=== PATIENT | male | born 1955 ===

== ENCOUNTER 2018-08-17 18:39 | Inpatient (IN) | payer MEDICAID, OTHER ==
[2018-08-17 19:20] LABS: BASO # 0.02 K/mm3 (0.0-2.0); BASO % 0.2 % (0.0-3.0); EOS # 0.1 (0.0-0.7); EOS % 1.3 % (1.5-5.0); HEMOGLOBIN 14.6 g/dL (14.0-18.0); LYMPH % 35.4 % (22.0-35.0); MEAN CELL VOLUME 82.7 fl (80.0-105.0); MEAN CORPUSCULAR HGB CONC 35.1 g/dl (31.0-37.0); MEAN PLATELET VOLUME 9.5 fl (7.0-11.0); MONO # 0.6 (0.1-0.6); MONO % 7.5 % (1.0-6.0); RBC 5.03 10^6/uL (3.5-6.1); RED CELL DISTRIBUTION WIDTH 13.7 % (11.5-14.5); WHITE BLOOD COUNT 8.4 10^3/uL (4.5-11.0)
[2018-08-17 19:33] LABS: ALB/GLOB RATIO 1.3 (1.1-1.8); ALBUMIN 4.6 g/dL (3.0-4.8); CALCIUM 9.7 mg/dL (8.4-10.5)
[2018-08-17 19:44] LABS: TROPONIN I 0.03 ng/mL
--- NOTE | 2018-08-17 20:02 | ED PDOC ---
Arrival/HPI - General Chief Complaint: Shortness Of Breath Time Seen by Provider: 08/17/18 18:58 Historian: Patient - History of Present Illness Narrative History of Present Illness (Text): 08/17/18 19:56 63-year-old male presents today with a 4-month history of intermittent shortness of breath. Patient is complaining of dyspnea on exertion. Patient states today while taking out the garbage he developed his shortness of breath and palpitations in the chest. He denies chest pain at present time. Patient denies dizziness or weakness. Patient denies cough. Patient states he quit smoking 4 months ago. Patient denies abdominal pain. No nausea vomiting diarrhea or constipation. No dizziness or weakness. Patient states while at rest he has no pain or shortness of breath. Past Medical History - Provider Review Nursing Documentation Reviewed: Yes - Travel History Have you recently traveled outside [place] w/in the past 3 mons?: No - Infectious Disease Hx of Infectious Diseases: None - Cardiac Hx Hypertension: Yes (NOT ON MEIDCATION) - Psychiatric Hx Substance Use: No - Anesthesia Hx Anesthesia: No Hx Anesthesia Reactions: No Hx Malignant Hyperthermia: No Family/Social History - Physician Review Nursing Documentation Reviewed: Yes Family/Social History: Unknown Family HX Smoking Status: Never Smoked Hx Alcohol Use: No Hx Substance Use: No Allergies/Home Meds Allergies/Adverse Reactions: Allergies No Known Allergies Allergy (Verified 08/17/18 18:53) Home Medications: Home Meds Medication Instructions Recorded Confirmed No Known Home Med 08/17/18 08/17/18 Review of Systems - Review of Systems Constitutional: absent: Fatigue, Fevers Respiratory: SOB. absent: Cough, Sputum, Wheezing Cardiovascular: Chest Pain (intermittent), Palpitations Gastrointestinal: absent: Abdominal Pain, Constipation, Diarrhea, Nausea, Vomiting Genitourinary Male: absent: Dysuria, Frequency, Hematuria Musculoskeletal: absent: Arthralgias, Back Pain, Neck Pain Skin: absent: Rash, Pruritis Neurological: absent: Headache, Dizziness Psychiatric: absent: Anxiety, Depression, Suicidal Ideation Physical Exam Vital Signs Reviewed: Yes Vital Signs Temp Pulse Resp BP Pulse Ox 08/17/18 19:02 97.7 F 87 18 151/79 H 100 08/17/18 18:48 83 22 188/100 H 100 Temperature: Afebrile Blood Pressure: Hypertensive Pulse: Regular Respiratory Rate: Normal Appearance: Positive for: Well-Appearing, Non-Toxic, Comfortable Pain Distress: None Mental Status: Positive for: Alert and Oriented X 3 - Systems Exam Head: Present: Atraumatic Mouth: Present: Moist Mucous Membranes Nose (External): Present: Atraumatic Nose (Internal): Present: Normal Inspection Neck: Present: Normal Range of Motion Respiratory/Chest: Present: Clear to Auscultation, Good Air Exchange. No: Respiratory Distress, Accessory Muscle Use, Wheezes, Decreased Breath Sounds, Retracting, Rhonchi, Tachypneic Cardiovascular: Present: Regular Rate and Rhythm. No: Murmurs Abdomen: No: Tenderness, Distention, Rebound, Guarding Back: Present: Normal Inspection Upper Extremity: Present: Normal ROM Lower Extremity: Present: Normal Inspection, Normal ROM. No: Edema Neurological: Present: GCS=15, Speech Normal Skin: Present: Warm, Dry, Normal Color. No: Rashes Psychiatric: Present: Alert, Oriented x 3 Medical Decision Making ED Course and Treatment: 08/17/18 19:59 63-year-old male with a 4-month history of shortness of breath. With worsening shortness of breath today while taking out the garbage. Denies shortness of breath at present time. CBC within normal limits CMP elevated creatinine 1.6 trop:0.03 bnp; elevated d-dimer; 196 cxr; no infiltrate pt resting comfortably ; speaking in full sentences; saturating at 100% on room air. case discussed with dr. marcano. will admit for sob/ elevated bnp. asa given Po all results discussed with patient/family. impression; shortness of breath, elevated bnp, elevated CR admit. tele obs - Lab Interpretations Lab Results: D-Dimer, Quantitative 196 ng/mlDDU (0-243) 08/17/18 19:00 Troponin I 0.03 ng/mL 08/17/18 19:00 NT-Pro-B Natriuret Pep 1160 pg/mL (0-450) H 08/17/18 19:00 Total Bilirubin 0.8 mg/dL (0.2-1.3) 08/17/18 19:00 AST 25 U/L (17-59) 08/17/18 19:00 ALT 9 U/L (7-56) 08/17/18 19:00 Alkaline Phosphatase 92 U/L (38-126) 08/17/18 19:00 Total Protein 8.0 g/dL (5.8-8.3) 08/17/18 19:00 Albumin 4.6 g/dL (3.0-4.8) 08/17/18 19:00 Globulin 3.4 gm/dL 08/17/18 19:00 Albumin/Globulin Ratio 1.3 (1.1-1.8) 08/17/18 19:00 - RAD Interpretation Radiology Orders: 08/17/18 19:01 CHEST PORTABLE [RAD] Stat Disposition/Present on Arrival - Present on Arrival Any Indicators Present on Arrival: No History of DVT/PE: No History of Uncontrolled Diabetes: No Urinary Catheter: No History of Decub. Ulcer: No History Surgical Site Infection Following: None - Disposition Have Diagnosis and Disposition been Completed?: Yes Diagnosis: Shortness of breath, Elevated brain natriuretic peptide (BNP) level, Elevated serum creatinine Disposition: HOSPITALIZED Disposition Time: 20:02 Patient Plan: Observation, Telemetry Condition: FAIR Forms: Blood cell Storage (Turkish)
[2018-08-17 22:31] LABS: PH,URINE 6.5 (4.7-8.0); URINE BILIRUBIN NEGATIVE (NEGATIVE); URINE BLOOD NEGATIVE (NEGATIVE); URINE GLUCOSE (UA) NEGATIVE (NEGATIVE); URINE LEUKOCYTE ESTERASE NEGATIVE Leu/uL (NEGATIVE); URINE PROTEIN NEGATIVE mg/dL (<30 mg/dL); URINE UROBILINOGEN 0.2 E.U./dL (<1 E.U./dL)
[2018-08-17 22:33] LABS: URINE APPEARANCE CLEAR (CLEAR); URINE COLOR YELLOW (YELLOW)
[2018-08-17] MEDS ORDERED: Dextrose 50% SYRINGE Inj (50 ml) IV PRN (22:42)
[2018-08-17 22:52] LABS: HDL CHOLESTEROL 39 mg/dL (29-60)
[2018-08-17 23:04] LABS: LDL CHOLESTEROL 122 mg/dL (0-129)
[2018-08-17 23:10] LABS: FREE T4 1.02 ng/dL (0.78-2.19)
--- NOTE | 2018-08-18 00:48 | CP.PCM.HP ---
<Marcin Dwyer - Last Filed: 08/18/18 00:51> History of Present Illness - History of Present Illness History of Present Illness: Resident History & Physical for Hospitalist Service Patient is a 63 year old Green[place]ic speaking male with no known past medical history presenting with chief complaint of shortness of breath which has been progressively worsening over the past four months. Patient's dyspnea worsens with exertion and he is now only able to walk one block due to the severity of his symptoms. Patient previously smoked 1 pack every two days for the past 25 y ears and quit when he started developing symptoms. Patient denies ever following up with a primary medical doctor and has never taken medications. Denies fevers, chills, headache, dizziness, chest pain, abdominal pain, diarrhea, dysuria. PMH: none PSH: none SHx: 1 pack every 2 days for the past 25 years, denies alcohol and illicit drug use FHx: denies Allergies: none PMD: none Present on Admission - Present on Admission Any Indicators Present on Admission: No Review of Systems - Review of Systems All systems: reviewed and no additional remarkable complaints except (as stated in HPI) Past Patient History - Infectious Disease Hx of Infectious Diseases: None - Past Social History Smoking Status: Former Smoker - CARDIAC Hx Hypertension: Yes (NOT ON MEIDCATION) - PSYCHIATRIC Hx Substance Use: No - SURGICAL HISTORY Hx Surgeries: No - ANESTHESIA Hx Anesthesia: No Hx Anesthesia Reactions: No Hx Malignant Hyperthermia: No Meds Allergies/Adverse Reactions: Allergies Allergy/AdvReac Type Severity Reaction Status Date / Time No Known Allergies Allergy Verified 08/17/18 18:53 Physical Exam - Constitutional Appears: Non-toxic, No Acute Distress - Head Exam Head Exam: ATRAUMATIC, NORMOCEPHALIC - Eye Exam Eye Exam: EOMI, Normal appearance, PERRL - ENT Exam ENT Exam: Mucous Membranes Moist - Neck Exam Neck exam: Positive for: Normal Inspection - Respiratory Exam Respiratory Exam: Clear to Auscultation Bilateral, NORMAL BREATHING PATTERN. absent: Rales, Rhonchi, Wheezes, Respiratory Distress - Cardiovascular Exam Cardiovascular Exam: REGULAR RHYTHM, +S1, +S2. absent: Tachycardia, Systolic Murmur - GI/Abdominal Exam GI & Abdominal Exam: Normal Bowel Sounds, Soft. absent: Distended, Firm, Guarding, Rebound, Rigid, Tenderness - Extremities Exam Extremities exam: Positive for: normal capillary refill, normal inspection, pedal pulses present. Negative for: calf tenderness, pedal edema - Back Exam Back exam: absent: CVA tenderness (L), CVA tenderness (R) - Neurological Exam Neurological exam: Alert, CN II-XII Intact, Oriented x3 - Psychiatric Exam Psychiatric exam: Normal Affect, Normal Mood - Skin Skin Exam: Dry, Intact, Warm Results - Vital Signs Recent Vital Signs: Last Vital Signs Temp 97.7 F 08/17/18 19:02 Pulse 61 08/17/18 23:55 Resp 20 08/17/18 23:55 BP 147/59 L 08/17/18 23:55 Pulse Ox 98 08/17/18 23:55 - Labs Result Diagrams: 08/17/18 19:00 08/17/18 19:00 Labs: Laboratory Results - last 24 hr 08/17/18 08/17/18 08/17/18 19:00 19:00 19:00 WBC 8.4 RBC 5.03 Hgb 14.6 Hct 41.6 L MCV 82.7 MCH 29.0 MCHC 35.1 RDW 13.7 Plt Count 157 MPV 9.5 Neut % (Auto) 55.6 Lymph % (Auto) 35.4 H [place] % (Auto) 7.5 H Eos % (Auto) 1.3 L Baso % (Auto) 0.2 Lymph # (Auto) 3.0 [place] # (Auto) 0.6 Eos # (Auto) 0.1 Baso # (Auto) 0.02 Absolute Neuts (auto) 4.67 D-Dimer, Quantitative 196 Sodium 138 Potassium 4.4 Chloride 104 Carbon Dioxide 23 Anion Gap 16 BUN 20 Creatinine 1.6 H Est GFR ( Amer) 53 Est GFR (Non-Af Amer) 44 POC Glucose (mg/dL) Random Glucose 125 H Calcium 9.7 Total Bilirubin 0.8 AST 25 ALT 9 Alkaline Phosphatase 92 Lactate Dehydrogenase 553 Total Creatine Kinase 77 Troponin I 0.03 NT-Pro-B Natriuret Pep 1160 H Total Protein 8.0 Albumin 4.6 Globulin 3.4 Albumin/Globulin Ratio 1.3 Triglycerides Cholesterol LDL Cholesterol Direct HDL Cholesterol Free T4 TSH 3rd Generation Urine Color Urine Appearance Urine pH Ur Specific [place] Urine Protein Urine Glucose (UA) Urine Ketones Urine Blood Urine Nitrate Urine Bilirubin Urine Urobilinogen Ur Leukocyte Esterase 08/17/18 08/17/1819 19:00 19:00 22:21 WBC RBC Hgb Hct MCV MCH MCHC RDW Plt Count MPV Neut % (Auto) Lymph % (Auto) [place] % (Auto) Eos % (Auto) Baso % (Auto) Lymph # (Auto) [place] # (Auto) Eos # (Auto) Baso # (Auto) Absolute Neuts (auto) D-Dimer, Quantitative Sodium Potassium Chloride Carbon Dioxide Anion Gap BUN Creatinine Est GFR ( Amer) Est GFR (Non-Af Amer) POC Glucose (mg/dL) Random Glucose Calcium Total Bilirubin AST ALT Alkaline Phosphatase Lactate Dehydrogenase Total Creatine Kinase Troponin I NT-Pro-B Natriuret Pep Total Protein Albumin Globulin Albumin/Globulin Ratio Triglycerides 323 H Cholesterol 216 H LDL Cholesterol Direct 122 HDL Cholesterol 39 Free T4 1.02 TSH 3rd Generation 2.36 Urine Color Yellow Urine Appearance Clear Urine pH 6.5 Ur Specific [place] 1.010 Urine Protein Negative Urine Glucose (UA) Negative Urine Ketones Negative Urine Blood Negative Urine Nitrate Negative Urine Bilirubin Negative Urine Urobilinogen 0.2 Ur Leukocyte Esterase Negative 08/17/18 23:59 WBC RBC Hgb Hct MCV MCH MCHC RDW Plt Count MPV Neut % (Auto) Lymph % (Auto) [place] % (Auto) Eos % (Auto) Baso % (Auto) Lymph # (Auto) [place] # (Auto) Eos # (Auto) Baso # (Auto) Absolute Neuts (auto) D-Dimer, Quantitative Sodium Potassium Chloride Carbon Dioxide Anion Gap BUN Creatinine Est GFR ( Amer) Est GFR (Non-Af Amer) POC Glucose (mg/dL) 92 Random Glucose Calcium Total Bilirubin AST ALT Alkaline Phosphatase Lactate Dehydrogenase Total Creatine Kinase Troponin I NT-Pro-B Natriuret Pep Total Protein Albumin Globulin Albumin/Globulin Ratio Triglycerides Cholesterol LDL Cholesterol Direct HDL Cholesterol Free T4 TSH 3rd Generation Urine Color Urine Appearance Urine pH Ur Specific [place] Urine Protein Urine Glucose (UA) Urine Ketones Urine Blood Urine Nitrate Urine Bilirubin Urine Urobilinogen Ur Leukocyte Esterase Assessment & Plan - Assessment and Plan (Free Text) Assessment: Patient is a 63 year old [place]ic speaking male with no known past medical history presenting with chief complaint of progressively worsening shortness of breath Plan: Shortness of breath - D-dimer within normal limits - Troponin negx1 - Cardiology consulted - Troponins Q6H - EKG in AM - TSH, lipid panel, Hgba1c - ECHO - Aspirin ARF - kidney and bladder ultrasound to r/o obstruction - hold IVF PPX - Heparin SC Case reviewed with Dr. Corby Dwyer PGY-1 <Khoa Tavarez - Last Filed: 08/18/18 06:35> Results - Vital Signs Recent Vital Signs: Last Vital Signs Temp 96 F L 08/18/18 05:13 Pulse 74 08/18/18 06:30 Resp 31 H 08/18/18 06:30 BP 137/57 L 08/18/18 06:30 Pulse Ox 97 08/18/18 06:30 - Labs Result Diagrams: 08/17/18 19:00 08/17/18 19:00 Labs: Laboratory Results - last 24 hr 08/17/18 08/17/18 08/17/18 19:00 19:00 19:00 WBC 8.4 RBC 5.03 Hgb 14.6 Hct 41.6 L MCV 82.7 MCH 29.0 MCHC 35.1 RDW 13.7 Plt Count 157 MPV 9.5 Neut % (Auto) 55.6 Lymph % (Auto) 35.4 H [place] % (Auto) 7.5 H Eos % (Auto) 1.3 L Baso % (Auto) 0.2 Lymph # (Auto) 3.0 [place] # (Auto) 0.6 Eos # (Auto) 0.1 Baso # (Auto) 0.02 Absolute Neuts (auto) 4.67 APTT D-Dimer, Quantitative 196 Sodium 138 Potassium 4.4 Chloride 104 Carbon Dioxide 23 Anion Gap 16 BUN 20 Creatinine 1.6 H Est GFR ( Amer) 53 Est GFR (Non-Af Amer) 44 POC Glucose (mg/dL) Random Glucose 125 H Calcium 9.7 Total Bilirubin 0.8 AST 25 ALT 9 Alkaline Phosphatase 92 Lactate Dehydrogenase 553 Total Creatine Kinase 77 CK-MB (CK-2) CK-MB (CK-2) % Troponin I 0.03 NT-Pro-B Natriuret Pep 1160 H Total Protein 8.0 Albumin 4.6 Globulin 3.4 Albumin/Globulin Ratio 1.3 Triglycerides Cholesterol LDL Cholesterol Direct HDL Cholesterol Free T4 TSH 3rd Generation Urine Color Urine Appearance Urine pH Ur Specific [place] Urine Protein Urine Glucose (UA) Urine Ketones Urine Blood Urine Nitrate Urine Bilirubin Urine Urobilinogen Ur Leukocyte Esterase 08/17/18 08/17/1819 19:00 19:00 22:21 WBC RBC Hgb Hct MCV MCH MCHC RDW Plt Count MPV Neut % (Auto) Lymph % (Auto) [place] % (Auto) Eos % (Auto) Baso % (Auto) Lymph # (Auto) [place] # (Auto) Eos # (Auto) Baso # (Auto) Absolute Neuts (auto) APTT D-Dimer, Quantitative Sodium Potassium Chloride Carbon Dioxide Anion Gap BUN Creatinine Est GFR ( Amer) Est GFR (Non-Af Amer) POC Glucose (mg/dL) Random Glucose Calcium Total Bilirubin AST ALT Alkaline Phosphatase Lactate Dehydrogenase Total Creatine Kinase CK-MB (CK-2) CK-MB (CK-2) % Troponin I NT-Pro-B Natriuret Pep Total Protein Albumin Globulin Albumin/Globulin Ratio Triglycerides 323 H Cholesterol 216 H LDL Cholesterol Direct 122 HDL Cholesterol 39 Free T4 1.02 TSH 3rd Generation 2.36 Urine Color Yellow Urine Appearance Clear Urine pH 6.5 Ur Specific [place] 1.010 Urine Protein Negative Urine Glucose (UA) Negative Urine Ketones Negative Urine Blood Negative Urine Nitrate Negative Urine Bilirubin Negative Urine Urobilinogen 0.2 Ur Leukocyte Esterase Negative 08/17/18 08/18/18 08/18/18 23:59 01:25 02:44 WBC RBC Hgb Hct MCV MCH MCHC RDW Plt Count MPV Neut % (Auto) Lymph % (Auto) [place] % (Auto) Eos % (Auto) Baso % (Auto) Lymph # (Auto) [place] # (Auto) Eos # (Auto) Baso # (Auto) Absolute Neuts (auto) APTT 35.3 D-Dimer, Quantitative Sodium Potassium Chloride Carbon Dioxide Anion Gap BUN Creatinine Est GFR ( Amer) Est GFR (Non-Af Amer) POC Glucose (mg/dL) 92 Random Glucose Calcium Total Bilirubin AST ALT Alkaline Phosphatase Lactate Dehydrogenase 624 Total Creatine Kinase 513 H CK-MB (CK-2) 45.1 H CK-MB (CK-2) % 8.8 H Troponin I 14.20 H* D NT-Pro-B Natriuret Pep Total Protein Albumin Globulin Albumin/Globulin Ratio Triglycerides Cholesterol LDL Cholesterol Direct HDL Cholesterol Free T4 TSH 3rd Generation Urine Color Urine Appearance Urine pH Ur Specific [place] Urine Protein Urine Glucose (UA) Urine Ketones Urine Blood Urine Nitrate Urine Bilirubin Urine Urobilinogen Ur Leukocyte Esterase Attending/Attestation - Attestation I have personally seen and examined this patient.: Yes I have fully participated in the care of the patient.: Yes I have reviewed all pertinent clinical information: Yes Notes (Text): 08/18/18 06:35 Seen and examined and discussed with resident. Exam benign. A&P as above.
[2018-08-18 02:22] LABS: CK MB% 8.8 % (2.5-3.0); CK-MB 45.1 ng/mL (0.0-3.6); TROPONIN I 14.2 ng/mL
[2018-08-18] MEDS ORDERED: Heparin25000 units/250ml 1/2NS 25,000 UNITS/250 ML BAG IV SCH (02:30)
[2018-08-18] MEDS ORDERED: Dextrose 50% SYRINGE Inj (50 ml) IVP ONE (03:19)
[2018-08-18] MEDS ORDERED: Lidocaine PF 2% (5 ml) Inj (For Cardiac Arrhy) ONE (03:41)
[2018-08-18] MEDS ORDERED: Iodixanol 320 MG/ML 100 ML BOTTLE IV ONE (03:42)
[2018-08-18] MEDS ORDERED: Phenylephrine 10 mg/ml Inj ONE (03:42)
[2018-08-18] MEDS ORDERED: Midazolam 2 MG/2 ML VIAL ONE ×2 (03:42→04:07)
[2018-08-18] MEDS ORDERED: Iodixanol 320 MG/ML 200 ML BOTTLE IV ONE ×2 (03:42→04:08)
[2018-08-18] MEDS ORDERED: Iohexol 350mgl/ml 50 ML ONE (03:42)
[2018-08-18] MEDS ORDERED: Nitroglycerin 50mg in D5W 50 MG/250 ML BOTTLE IV ONE (03:43)
[2018-08-18] MEDS ORDERED: Heparin 2,000 ML IV ONE (03:43)
[2018-08-18] MEDS ORDERED: Iodixanol 320 mg/ml 150 ml Bottle IV ONE (04:27)
[2018-08-18] MEDS ORDERED: Morphine 2 mg/ml ISec ONE (04:29)
[2018-08-18] MEDS ORDERED: Sodium Chloride 0.9% 1,000 ML IV SCH (04:45)
--- NOTE | 2018-08-18 05:24 | CP.PCM.PCO ---
<Marshal Arredondo - Last Filed: 08/18/18 05:13> Summary - Summary of Event Summary of Event: Code HEART Note Marshal Arredondo DO, IM PGY-3 Patient previously admitted to floor for presentation of progressively worsening shortness of breath with exertion. No known hx due to lack of following physici ans, but hx tobacco use, quit 4 months prior, 15-20 pack yrs total. Since admission, labs notable for hyperlipidemia and BP suggestive of HTN. Initial trop on admission was 0.03, but repeat trop concerning for trop elevation to 14.2. Went to evaluate patient emergently, patient resting comfortably, not complaining of chest pain or shortness of breath at rest, not acutely tachycardic, but hypertensive with SBP 200's. STAT EKG ordered and read by me, when compared to EKG on admission concerning for new ST-elevations in V2 and V3. Chemical Process Operator previously consulted for this patient, Dr. Cooney, called emergently, discussed case with him, sent images of both EKG for evaluation. As per Cardio, given the severity of the trop elevation, the EKG changes, labs/vitals suggestive of HLD/HTN, and hx of tobacco use, significant concern for acute coronary event despite lack of chest pain. Code Heart activated at 0308, team called for emergent PATHOLOGY COLLECTOR. Remained with patient until team arrived, t hen proceeded with transfer from telemetry floor to blender laborer. No acute events prior to or during transfer, arrived at blender laborer and handed off to cath team and Dr. Cooney without incident. As per Cardio's instructions, with initiation of Code HEART, patient was given Plavix 600mg loading dose and Heparin 5000 unit bolus. Had previously received 325mg Aspirin on arrival in ED, and received Lipitor 40mg and Hydralazine IV 10mg for HLD and HTN prior to Code HEART. Patient additionally received 1mg IV ativan due to panic attack after activation of Code HEART (self-described panic attack as per patient, still denied chest pain or shortness of breath during). Case reviewed and discussed with attending, Dr. Tavarez. <Khoa Tavarez - Last Filed: 08/18/18 06:35> Attending/Attestation - Attestation I have personally seen and examined this patient.: Yes I have fully participated in the care of the patient.: Yes I have reviewed all pertinent clinical information: Yes
--- NOTE | 2018-08-18 05:33 | CP.PCM.CON ---
<Marshal Arredondo - Last Filed: 08/18/18 05:52> History of Present Illness - History of Present Illness History of Present Illness: ICU Consult Note Marshal Arredondo DO, IM PGY-3 Consulted for: Obs/Management post-cath This is a 63 yo M with no known PMH (due to no follow up with any medic al providers) who initially presented to [facility] with 4x months of progressively worsening exertional shortness of breath. After admission, repeat trop acutely elevated from 0.03 to 14.2, and EKG obtained at that time was concerning for new-onset ST-elevations in V2-3, which as per Cardio was concerning for acute STEMI. Code HEART was called at [id number] (please see Code HEART note for further details), and patient was transported to the wheelabrator operator for emergent COMPTROLLER. Found to have significant occlusion of the LAD, s/p ballooning and placement of 1x NANCY in the LAD. Patient was then transported to ICU for close observation and management s/p emergent COMPTROLLER. Patient remains groggy post-procedure (received fentanyl and versed for cath procedure), mostly moaning non-verbally, but does admit to some residual chest discomfort and thirst. Knows he is in [facility], and oriented to self and year. Distal pulses confirmed with duplex. PMH: no known hx, but labs suggestive of HLD and vitals suggestive of HTN, now known to have CAD s/p ND PSH: denies Fam Hx: unaware of any family hx Soc Hx: former tobacco user, 1/2 ppd, quit 4 months prior, 15-20 pack yr hx denies alcohol, illicits, IVDA Unemployed PMD: none Review of Systems - Review of Systems Systems not reviewed;Unavailable: Other (somnolent/lethargic s/p cath procedure, received fentanyl/versed) Past Patient History - Infectious Disease Hx of Infectious Diseases: None - Past Social History Smoking Status: Former Smoker - CARDIAC Hx Cardiac Disorders: Yes (PALPITATION) Hx Hypertension: Yes - PULMONARY Hx Respiratory Disorders: No (DENIES) - NEUROLOGICAL Hx Neurological Disorder: No (DENIES) - HEENT Hx HEENT Problems: No (DENIES) - RENAL Hx Chronic Kidney Disease: No (DENIES) - ENDOCRINE/METABOLIC Hx Endocrine Disorders: No (DENIES) - HEMATOLOGICAL/ONCOLOGICAL Hx Blood Disorders: No (DENIES) - INTEGUMENTARY Hx Dermatological Problems: No (DENIES) - MUSCULOSKELETAL/RHEUMATOLOGICAL Hx Falls: No - GASTROINTESTINAL Hx Gastrointestinal Disorders: No (DENIES) - GENITOURINARY/GYNECOLOGICAL Hx Genitourinary Disorders: No (DENIES) - PSYCHIATRIC Hx Substance Use: No - SURGICAL HISTORY Hx Surgeries: No (DENIES) - ANESTHESIA Hx Anesthesia: No Hx Anesthesia Reactions: No Hx Malignant Hyperthermia: No Meds Allergies/Adverse Reactions: Allergies Allergy/AdvReac Type Severity Reaction Status Date / Time No Known Allergies Allergy Verified 08/17/18 18:53 - Medications Medications: Current Medications Acetaminophen (Tylenol 325mg Tab) 650 mg PO Q6H PRN PRN Reason: Pain, moderate (4-7) Alprazolam (Xanax) 0.25 mg PO BID PRN PRN Reason: Anxiety Stop: 08/25/18 04:44 Aspirin (Ecotrin) 81 mg PO DAILY [facility] Atorvastatin Calcium (Lipitor) 40 mg PO DIN [facility] Clopidogrel Bisulfate (Plavix) 75 mg PO DAILY [facility] Dextrose (Dextrose 50% Inj) 0 ml IV STAT PRN; Protocol PRN Reason: Hypoglycemia Protocol Dextrose (Dextrose 5% In Water 1000 Ml) 1,000 mls @ 0 mls/hr IV .Q0M PRN; Protocol PRN Reason: Hypoglycemia Protocol Sodium Chloride (Sodium Chloride 0.9%) 1,000 mls @ 100 mls/hr IV .Q10H [facility] Stop: 08/18/18 08:46 Insulin Human Regular (Humulin R Med) 0 units SC ACHS [facility]; Protocol Metoprolol Tartrate (Lopressor) 12.5 mg PO Q12H [facility] Zolpidem Tartrate (Ambien) 5 mg PO HS PRN PRN Reason: Insomnia Physical Exam - Constitutional Appears: Non-toxic, No Acute Distress - Head Exam Head Exam: ATRAUMATIC, NORMAL INSPECTION, NORMOCEPHALIC - Eye Exam Eye Exam: EOMI, Normal appearance. absent: Conjunctival injection, Scleral icterus Pupil Exam: absent: Irregular, Unequal - ENT Exam ENT Exam: Mucous Membranes Moist - Neck Exam Neck exam: Negative for: Lymphadenopathy, Thyromegaly - Respiratory Exam Respiratory Exam: Clear to Auscultation Bilateral, NORMAL BREATHING PATTERN. absent: Accessory Muscle Use, Chest Wall Tenderness, Decreased Breath Sounds, Prolonged Expiratory Phase, Rales, Rhonchi, Wheezes, Respiratory Distress - Cardiovascular Exam Cardiovascular Exam: REGULAR RHYTHM, RRR (HR 70's on bedside monitor), +S1, +S2. absent: Bradycardia, Tachycardia, Irregular Rhythm, JVD, +S4 - GI/Abdominal Exam GI & Abdominal Exam: Normal Bowel Sounds, Soft. absent: Diminished Bowel Sounds, Distended, Firm, Hyperactive Bowel Sounds, Hypoactive Bowel Sounds, Rigid, Tenderness - Extremities Exam Extremities exam: Positive for: normal capillary refill, normal inspection, pedal pulses present (confirmed with duplex). Negative for: calf tenderness, pedal edema Additional comments: bandaging along right groin at site of vascular access site for cath - Neurological Exam Additional comments: somnolent but arousable, oriented to self and location, able to follow simple commands, previously seen to be moving all extremities spontaneously prior to code heart and cath - Psychiatric Exam Additional comments: sedated/lethargic - Skin Skin Exam: Dry, Intact (except for vascular access site as described above in extremities section), Normal Color, Warm Results - Vital Signs Recent Vital Signs: Last Vital Signs Temp 97.7 F 08/17/18 19:02 Pulse 60 08/18/18 02:52 Resp 18 08/18/18 02:08 BP 201/73 H 08/18/18 02:52 Pulse Ox 99 08/18/18 01:00 - Labs Result Diagrams: 08/17/18 19:00 08/17/18 19:00 Labs: Laboratory Results - last 24 hr 08/17/18 08/17/18 08/17/18 19:00 19:00 19:00 WBC 8.4 RBC 5.03 Hgb 14.6 Hct 41.6 L MCV 82.7 MCH 29.0 MCHC 35.1 RDW 13.7 Plt Count 157 MPV 9.5 Neut % (Auto) 55.6 Lymph % (Auto) 35.4 H [place] % (Auto) 7.5 H Eos % (Auto) 1.3 L Baso % (Auto) 0.2 Lymph # (Auto) 3.0 [place] # (Auto) 0.6 Eos # (Auto) 0.1 Baso # (Auto) 0.02 Absolute Neuts (auto) 4.67 APTT D-Dimer, Quantitative 196 Sodium 138 Potassium 4.4 Chloride 104 Carbon Dioxide 23 Anion Gap 16 BUN 20 Creatinine 1.6 H Est GFR ( Amer) 53 Est GFR (Non-Af Amer) 44 POC Glucose (mg/dL) Random Glucose 125 H Calcium 9.7 Total Bilirubin 0.8 AST 25 ALT 9 Alkaline Phosphatase 92 Lactate Dehydrogenase 553 Total Creatine Kinase 77 CK-MB (CK-2) CK-MB (CK-2) % Troponin I 0.03 NT-Pro-B Natriuret Pep 1160 H Total Protein 8.0 Albumin 4.6 Globulin 3.4 Albumin/Globulin Ratio 1.3 Triglycerides Cholesterol LDL Cholesterol Direct HDL Cholesterol Free T4 TSH 3rd Generation Urine Color Urine Appearance Urine pH Ur Specific [place] Urine Protein Urine Glucose (UA) Urine Ketones Urine Blood Urine Nitrate Urine Bilirubin Urine Urobilinogen Ur Leukocyte Esterase 08/17/18 08/17/18 08/17/18 19:00 19:00 22:21 WBC RBC Hgb Hct MCV MCH MCHC RDW Plt Count MPV Neut % (Auto) Lymph % (Auto) [place] % (Auto) Eos % (Auto) Baso % (Auto) Lymph # (Auto) [place] # (Auto) Eos # (Auto) Baso # (Auto) Absolute Neuts (auto) APTT D-Dimer, Quantitative Sodium Potassium Chloride Carbon Dioxide Anion Gap BUN Creatinine Est GFR ( Amer) Est GFR (Non-Af Amer) POC Glucose (mg/dL) Random Glucose Calcium Total Bilirubin AST ALT Alkaline Phosphatase Lactate Dehydrogenase Total Creatine Kinase CK-MB (CK-2) CK-MB (CK-2) % Troponin I NT-Pro-B Natriuret Pep Total Protein Albumin Globulin Albumin/Globulin Ratio Triglycerides 323 H Cholesterol 216 H LDL Cholesterol Direct 122 HDL Cholesterol 39 Free T4 1.02 TSH 3rd Generation 2.36 Urine Color Yellow Urine Appearance Clear Urine pH 6.5 Ur Specific [place] 1.010 Urine Protein Negative Urine Glucose (UA) Negative Urine Ketones Negative Urine Blood Negative Urine Nitrate Negative Urine Bilirubin Negative Urine Urobilinogen 0.2 Ur Leukocyte Esterase Negative 08/17/18 08/18/18 08/18/18 23:59 01:25 02:44 WBC RBC Hgb Hct MCV MCH MCHC RDW Plt Count MPV Neut % (Auto) Lymph % (Auto) [place] % (Auto) Eos % (Auto) Baso % (Auto) Lymph # (Auto) [place] # (Auto) Eos # (Auto) Baso # (Auto) Absolute Neuts (auto) APTT 35.3 D-Dimer, Quantitative Sodium Potassium Chloride Carbon Dioxide Anion Gap BUN Creatinine Est GFR ( Amer) Est GFR (Non-Af Amer) POC Glucose (mg/dL) 92 Random Glucose Calcium Total Bilirubin AST ALT Alkaline Phosphatase Lactate Dehydrogenase 624 Total Creatine Kinase 513 H CK-MB (CK-2) 45.1 H CK-MB (CK-2) % 8.8 H Troponin I 14.20 H* D NT-Pro-B Natriuret Pep Total Protein Albumin Globulin Albumin/Globulin Ratio Triglycerides Cholesterol LDL Cholesterol Direct HDL Cholesterol Free T4 TSH 3rd Generation Urine Color Urine Appearance Urine pH Ur Specific [place] Urine Protein Urine Glucose (UA) Urine Ketones Urine Blood Urine Nitrate Urine Bilirubin Urine Urobilinogen Ur Leukocyte Esterase Assessment & Plan - Assessment and Plan (Free Text) Assessment: This is a 63 yo M with no known PMH (due to no follow up with any medical providers) who initially presented to [facility] with 4x months of progressively worsening exertional shortness of breath, later found to have acute STEMI (elevations in V2-3, depressions in I, aVL, V4-6), now s/p emergent COMPTROLLER with NANCY placed in LAD. Admitted to ICU for post-cath monitoring and management. Plan: Neuro: -lethargic/somnolent s/p procedure, previously AAOx3 -maintain normothermia Pulm: -CTAB, no wheezes, rales, ronchi -likely exertional SOB is cardiac in nature, CAD/ND +/- new CHF (mild reduced EF as per Cardio) -no pleural effusion/pulm edema appreciated on CXR, satting well on 2L NC, and mildly elevated Cr, so will defer diuresis at this time -may be some underlying COPD given extensive smoking hx, continue to monitor -continue supplemental O2, goal is SaO2 92-99% Cardio: -s/p STEMI, trop increased to 14.2, new ST-elevations in V2-3, depressions in I, aVL, V4-6; suggestive of LAD or LCx lession -S/p cardiac cath, NANCY placed in LAD -Received ASA 325mg in ED, Heparin 5000u and Plavix 600mg pre-cath, Heparin 2000u during cath -Cardio (Dr. Cooney) following, appreciate his assistance and all recs continue daily ASA and Plavix, low-dose metoprolol (given borderline bradycardia prior to cath), gentle hydration -Will also continue high-intensity statin given HLD and acute ND -previously HTN with SBP up to 200's, 90's-100's post-cs=ath, continue to monitor -Echo ordered, f/u GI: -HHD -no indication for ppx at this time Renal: -Cr elevated at 1.6, unclear if longstanding CKD or IDRIS -likely to further elevate s/p cath, will monitor -gentle hydration as per Cardio -avoid nephrotoxic drugs where feasible -monitor and replete electrolytes as needed, in acute ACS pt want K >= 4 and Mg >= 2 -pending renal and bladder US, possible BPH based on presenting sx provided to admitting team -monitor UOP post-procedure Heme: no anemia, continue to monitor ID: no leukocytosis, no indication for abx at this time Endo: maintain BG 140-180, assess for DM given lack of physician f/u, A1c and TSH ordered Reviewed and discussed with attending, Dr. Tavarez <Khoa Tavarez - Last Filed: 08/18/18 06:36> Meds - Medications Medications: Current Medications Acetaminophen (Tylenol 325mg Tab) 650 mg PO Q6H PRN PRN Reason: Pain, moderate (4-7) Alprazolam (Xanax) 0.25 mg PO BID PRN PRN Reason: Anxiety Stop: 08/25/18 04:44 Aspirin (Ecotrin) 81 mg PO DAILY [facility] Atorvastatin Calcium (Lipitor) 40 mg PO DIN [facility] Clopidogrel Bisulfate (Plavix) 75 mg PO DAILY [facility] Dextrose (Dextrose 50% Inj) 0 ml IV STAT PRN; Protocol PRN Reason: Hypoglycemia Protocol Dextrose (Dextrose 5% In Water 1000 Ml) 1,000 mls @ 0 mls/hr IV .Q0M PRN; P rotocol PRN Reason: Hypoglycemia Protocol Sodium Chloride (Sodium Chloride 0.9%) 1,000 mls @ 100 mls/hr IV .Q10H [facility] Stop: 08/18/18 08:46 Last Admin: 08/18/18 05:00 Dose: 100 mls/hr Insulin Human Regular (Humulin R Med) 0 units SC ACHS [facility]; Protocol Metoprolol Tartrate (Lopressor) 12.5 mg PO Q12H [facility] Last Admin: 08/18/18 05:30 Dose: 12.5 mg Zolpidem Tartrate (Ambien) 5 mg PO HS PRN PRN Reason: Insomnia Results - Vital Signs Recent Vital Signs: Last Vital Signs Temp 96 F L 08/18/18 05:13 Pulse 74 08/18/18 06:30 Resp 31 H 08/18/18 06:30 BP 137/57 L 08/18/18 06:30 Pulse Ox 97 08/18/18 06:30 - Labs Result Diagrams: 08/17/18 19:00 08/17/18 19:00 Labs: Laboratory Results - last 24 hr 08/17/18 08/17/18 08/17/18 19:00 19:00 19:00 WBC 8.4 RBC 5.03 Hgb 14.6 Hct 41.6 L MCV 82.7 MCH 29.0 MCHC 35.1 RDW 13.7 Plt Count 157 MPV 9.5 Neut % (Auto) 55.6 Lymph % (Auto) 35.4 H [place] % (Auto) 7.5 H Eos % (Auto) 1.3 L Baso % (Auto) 0.2 Lymph # (Auto) 3.0 [place] # (Auto) 0.6 Eos # (Auto) 0.1 Baso # (Auto) 0.02 Absolute Neuts (auto) 4.67 APTT D-Dimer, Quantitative 196 Sodium 138 Potassium 4.4 Chloride 104 Carbon Dioxide 23 Anion Gap 16 BUN 20 Creatinine 1.6 H Est GFR ( Amer) 53 Est GFR (Non-Af Amer) 44 POC Glucose (mg/dL) Random Glucose 125 H Calcium 9.7 Total Bilirubin 0.8 AST 25 ALT 9 Alkaline Phosphatase 92 Lactate Dehydrogenase 553 Total Creatine Kinase 77 CK-MB (CK-2) CK-MB (CK-2) % Troponin I 0.03 NT-Pro-B Natriuret Pep 1160 H Total Protein 8.0 Albumin 4.6 Globulin 3.4 Albumin/Globulin Ratio 1.3 Triglycerides Cholesterol LDL Cholesterol Direct HDL Cholesterol Free T4 TSH 3rd Generation Urine Color Urine Appearance Urine pH Ur Specific [place] Urine Protein Urine Glucose (UA) Urine Ketones Urine Blood Urine Nitrate Urine Bilirubin Urine Urobilinogen Ur Leukocyte Esterase 08/17/18 08/17/18 08/17/18 19:00 19:00 22:21 WBC RBC Hgb Hct MCV MCH MCHC RDW Plt Count MPV Neut % (Auto) Lymph % (Auto) [place] % (Auto) Eos % (Auto) Baso % (Auto) Lymph # (Auto) [place] # (Auto) Eos # (Auto) Baso # (Auto) Absolute Neuts (auto) APTT D-Dimer, Quantitative Sodium Potassium Chloride Carbon Dioxide Anion Gap BUN Creatinine Est GFR ( Amer) Est GFR (Non-Af Amer) POC Glucose (mg/dL) Random Glucose Calcium Total Bilirubin AST ALT Alkaline Phosphatase Lactate Dehydrogenase Total Creatine Kinase CK-MB (CK-2) CK-MB (CK-2) % Troponin I NT-Pro-B Natriuret Pep Total Protein Albumin Globulin Albumin/Globulin Ratio Triglycerides 323 H Cholesterol 216 H LDL Cholesterol Direct 122 HDL Cholesterol 39 Free T4 1.02 TSH 3rd Generation 2.36 Urine Color Yellow Urine Appearance Clear Urine pH 6.5 Ur Specific [place] 1.010 Urine Protein Negative Urine Glucose (UA) Negative Urine Ketones Negative Urine Blood Negative Urine Nitrate Negative Urine Bilirubin Negative Urine Urobilinogen 0.2 Ur Leukocyte Esterase Negative 08/17/18 08/18/18 08/18/18 23:59 01:25 02:44 WBC RBC Hgb Hct MCV MCH MCHC RDW Plt Count MPV Neut % (Auto) Lymph % (Auto) [place] % (Auto) Eos % (Auto) Baso % (Auto) Lymph # (Auto) [place] # (Auto) Eos # (Auto) Baso # (Auto) Absolute Neuts (auto) APTT 35.3 D-Dimer, Quantitative Sodium Potassium Chloride Carbon Dioxide Anion Gap BUN Creatinine Est GFR ( Amer) Est GFR (Non-Af Amer) POC Glucose (mg/dL) 92 Random Glucose Calcium Total Bilirubin AST ALT Alkaline Phosphatase Lactate Dehydrogenase 624 Total Creatine Kinase 513 H CK-MB (CK-2) 45.1 H CK-MB (CK-2) % 8.8 H Troponin I 14.20 H* D NT-Pro-B Natriuret Pep Total Protein Albumin Globulin Albumin/Globulin Ratio Triglycerides Cholesterol LDL Cholesterol Direct HDL Cholesterol Free T4 TSH 3rd Generation Urine Color Urine Appearance Urine pH Ur Specific [place] Urine Protein Urine Glucose (UA) Urine Ketones Urine Blood Urine Nitrate Urine Bilirubin Urine Urobilinogen Ur Leukocyte Esterase Attending/Attestation - Attestation I have personally seen and examined this patient.: Yes I have fully participated in the care of the patient.: Yes I have reviewed all pertinent clinical information: Yes
[2018-08-18 06:21] LABS: BASO # 0.02 K/mm3 (0.0-2.0); BASO % 0.1 % (0.0-3.0); EOS % 0.1 % (1.5-5.0); HEMOGLOBIN 15.6 g/dL (14.0-18.0); LYMPH # 1.7 (1.2-3.4); LYMPH % 12.4 % (22.0-35.0); MEAN CELL VOLUME 82.6 fl (80.0-105.0); MEAN CORPUSCULAR HEMOGLOBIN 29.2 pg (25.0-35.0); MEAN CORPUSCULAR HGB CONC 35.3 g/dl (31.0-37.0); MEAN PLATELET VOLUME 9.7 fl (7.0-11.0); MONO # 0.7 (0.1-0.6); MONO % 4.8 % (1.0-6.0); RBC 5.35 10^6/uL (3.5-6.1); RED CELL DISTRIBUTION WIDTH 13.7 % (11.5-14.5)
[2018-08-18 07:23] LABS: ALB/GLOB RATIO 1.1 (1.1-1.8); ALBUMIN 3.8 g/dL (3.0-4.8); CALCIUM 9.1 mg/dL (8.4-10.5); TROPONIN I 17.1 ng/mL
[2018-08-18] MEDS: Insulin Reg-MEDIUM-Coverage SC SCH ×4 (08:30→23:15)
[2018-08-18 09:47] LABS: TROPONIN I 25.8 ng/mL
--- NOTE | 2018-08-18 09:49 | RAD ---
Date of service: 08/17/2018 HISTORY: sob COMPARISON: No prior. FINDINGS: LUNGS: No active pulmonary disease. PLEURA: No significant pleural effusion identified, no pneumothorax apparent. CARDIOVASCULAR: No aortic atherosclerotic calcification present. Normal cardiac size. No pulmonary vascular congestion. OSSEOUS STRUCTURES: No significant abnormalities. VISUALIZED UPPER ABDOMEN: Normal. OTHER FINDINGS: None. IMPRESSION: No active disease.
[2018-08-18 09:56] LABS: CK MB% 10.4 % (2.5-3.0); CK-MB 80.5 ng/mL (0.0-3.6)
--- NOTE | 2018-08-18 10:15 | CARD ---
APPROVED REPORT Date of service: 08/17/2018 EKG Measurement Heart [id number] <Conclusion> Normal sinus rhythm Possible Left atrial enlargement Left ventricular hypertrophy with repolarization abnormality Cannot rule out Septal infarct, age undetermined Abnormal ECG
--- NOTE | 2018-08-18 10:37 | CARD ---
APPROVED REPORT Date of service: 08/18/2018 EKG Measurement Heart [id number] <Conclusion> Normal sinus rhythm Possible Left atrial enlargement Left ventricular hypertrophy with repolarization abnormality Cannot rule out Septal infarct, age undetermined Abnormal ECG
--- NOTE | 2018-08-18 10:40 | CARD ---
APPROVED REPORT Date of service: 08/18/2018 EKG Measurement Heart [id number] <Conclusion> Normal sinus rhythm Left ventricular hypertrophy with repolarization abnormality Cannot rule out Septal infarct, age undetermined Abnormal ECG
--- NOTE | 2018-08-18 11:23 | CON ---
DATE OF CONSULTATION: 08/18/2018 REQUESTING PHYSICIAN: Dr. Pavon. REASON FOR CONSULTATION: Chest pain, acute myocardial infarction. HISTORY: This is a 63-year-old man with no prior cardiac history, who presents to the emergency room with complaints of worsening dyspnea and back pain. He states his symptoms have been ongoing for the past several months. Over the past week, his symptoms have significantly worsened, he became concerned and quit smoking. He presented to the emergency room for evaluation. Initial electrocardiogram and troponin were unremarkable other than for the presence of left ventricular hypertrophy. A repeat troponin several hours after admission celestina to 14, and a repeat EKG showed evidence of anterior ST elevation. He was short of breath, but did not have chest pain at that time. His history is somewhat limited because of language barrier. PAST MEDICAL HISTORY: His past history is reportedly unremarkable. MEDICATIONS: Medications were none. SOCIAL HISTORY: He is a smoker of a pack per day for many years. He denies alcohol use. FAMILY HISTORY: Unremarkable for premature heart disease. ALLERGIES: NONE. REVIEW OF SYSTEMS: A 10-point review of systems was unremarkable. PHYSICAL EXAMINATION: GENERAL: He is an anxious-appearing, middle-aged man. VITAL SIGNS: His blood pressure was 180/90 with a pulse of 90 in sinus, respirations are 16. He is afebrile. HEENT: Normocephalic, atraumatic. NECK: Supple. No JVD noted. CHEST: Bilateral scattered rhonchi heard. HEART: PMI in normal position. No pathological murmurs or gallops noted. ABDOMEN: Soft, nontender, normoactive bowel sounds. EXTREMITIES: No clubbing, cyanosis, or edema. SKIN: Warm and dry. PSYCHIATRIC: Normal mood and affect. NEUROLOGIC: Alert and oriented x 3. No gross motor or sensory deficits notable. DIAGNOSTIC DATA: Initial troponin was 0.03, repeat is 14.2, potassium 4.4, BUN and creatinine are 20 and 1.6, glucose is 125. White count 8.4, hemoglobin and hematocrit are 14.6 and 41.6 with a platelet count of 157,000. BNP 1160. Cholesterol 216 with triglycerides of 323, LDL 122, HDL 39. Chest x-ray will be reviewed. Electrocardiogram initially showed evidence of sinus rhythm with left ventricular hypertrophy. Repeat electrocardiogram shows worsening LVH pattern with ST elevations in V1-V3. IMPRESSION: 1. Apparent acute anterior myocardial infarction. 2. History of tobacco abuse. RECOMMENDATIONS: 1. The patient will be brought emergently to the cardiac catheterization lab to undergo angiography. PCI of a suitable lesion, if found, will be planned. 2. Smoking abstinence will be encouraged. 3. Aspirin and Plavix therapy has been initiated. 4. Beta-royce and statin therapy will be initiated as well. 5. Further plans will be made based upon his clinical course and results of the above findings. Thank you for this consultation. I will be happy to follow along as needed. Lul Cooney MD
--- NOTE | 2018-08-18 12:40 | CARDCATH ---
PROCEDURE DATE: 08/18/2018 PROCEDURES: 1. Selective left and right coronary angiography. 2. Left ventriculography. 3. Percutaneous coronary intervention of proximal left anterior descending artery with drug-eluting stent. 4. Right femoral arteriography. 5. Angio-Seal deployment. HISTORY: This is a 63-year-old male with a history of tobacco abuse and prior limited medical care, who presents to the emergency room with worsening dyspnea and back pain. Initial electrocardiogram and troponin were negative; however, a repeat study showed a troponin rise to [address] elevations anteriorly. Emergency catheterization was advised. INDICATION: Acute myocardial infarction. FINDINGS: HEMODYNAMICS: The aortic pressure was 190/80 with a left ventricular pressure of 190/28. CORONARY ANATOMY: 1. The left mainstem had mild diffuse irregularities present. 2. The proximal left anterior descending artery was difficult to visualize, but ultimately was found to have evidence of 80% stenosis at the takeoff of the diagonal and septal branch. The distal LAD was fairly large and wrapped around the apex. The diagonal branches had evidence of mild diffuse disease. 3. The left circumflex artery was codominant. The circumflex proper and its branches had no evidence of significant disease. 4. The right coronary artery was codominant as well. This had a diffuse irregular 99% stenosis in its proximal segment. BRITTANI grade 3 flow was present in the RCA and circumflex; however, BRITTANI grade 2 flow was noted in the LAD. There were faint septal collaterals noted from the RCA. LEFT VENTRICULOGRAPHY: A hand injection was performed of the left ventricle revealing evidence of moderate distal anterolateral hypokinesis with an overall ejection fraction of 45%. There was no aortic valve gradient noted on catheter pullback. CORONARY INTERVENTION: 1. A 4.0 EBU guide catheter was utilized for visualization of the left coronary system. The LAD lesion was successfully crossed with the use of a [place] wire. The patient had received 5000 units of heparin on the floor and additional 2000 units of heparin when the initial ACT was 220 seconds. The initial lesion was treated with balloon angioplasty utilizing a 2.5 x 8 mm balloon. Following this, the balloon was removed and a 3.0 x 15 mm Resolute Jeet drug-eluting stent was advanced into the proximal LAD. This was inflated to 12 atmospheres for 30 seconds. There was 0% residual stenosis following the intervention. BRITTANI grade 3 flow was reestablished into the distal vessel. There was a slight stepdown at the distal edge of the stent; however, overall angiographic result appeared excellent. RIGHT FEMORAL ARTERIOGRAPHY: Right femoral arteriogram revealed no evidence of significant disease and appropriate level of arterial puncture. The puncture site was then closed with deployment of an Angio-Seal device. CONCLUSION: 1. Acute anterior wall myocardial infarction due to proximal LAD disease. 2. Severe RCA disease. 3. Mildly reduced LV systolic function and successful PCI of LAD with drug-eluting stent as described above. RECOMMENDATIONS: Given the above findings, the aspirin and Plavix therapy will be continued for at least one year. Consideration will be given to attempted PCI of the RCA. The beta royce and statin therapy will be initiated. Angiotension receptor royce will be added once stable renal function is verified. The need for continued smoking abstinence will be discussed with the patient. Risk factor control will be advised. Lul Cooney MD
--- NOTE | 2018-08-18 13:00 | CP.CCUPN ---
<Gregory Alicea - Last Filed: 08/18/18 13:01> CCU Subjective - Physician Review Subjective (Free Text): Gregory Alicea DO. Critical Care Progress note Patient seen and examined at bedside, awake and in NAD. He reports no complaints with no significant overnight events. No right leg weakness , numbness, or swelling on right groin cardiac cath site. CCU Objective - Vital Signs / Intake & Output Vital Signs (Last 4 hours): Vital Signs Pulse Resp 08/18/18 10:00 71 18 Intake and Output (Last 8hrs): Intake & Output 08/17/18 08/18/18 08/18/18 22:59 06:59 14:59 Intake Total 900 Output Total 500 Balance 400 Weight 170 lb 156 lb Intake: IV 900 Left Forearm 900 Oral 0 Output: Urine 500 Urine, Voided 500 Other: # Bowel Movements 0 - Physical Exam Head: Positive for: Atraumatic Mouth: Positive for: Moist Mucous Membranes Nose (External): Positive for: Atraumatic Nose (Internal): Positive for: Normal Inspection Neck: Positive for: Normal Range of Motion Respiratory/Chest: Positive for: Clear to Auscultation, Good Air Exchange. Negative for: Respiratory Distress, Accessory Muscle Use, Wheezes, Decreased Breath Sounds, Retracting, Rhonchi, Tachypneic Cardiovascular: Positive for: Regular Rate and Rhythm. Negative for: Murmurs Abdomen: Negative for: Tenderness, Distention, Rebound, Guarding Back: Positive for: Normal Inspection Upper Extremity: Positive for: Normal ROM Lower Extremity: Positive for: Normal Inspection, Normal ROM. Negative for: Edema Neurological: Positive for: GCS=15, Speech Normal Skin: Positive for: Warm, Dry, Normal Color. Negative for: Rashes Psychiatric: Positive for: Alert, Oriented x 3 - Medications Active Medications: Active Medications Generic Name Dose Route Start Last Admin Trade Name Freq PRN Reason Stop Dose Admin Acetaminophen 650 mg 08/17/18 22:02 Tylenol 325mg Tab PO Q6H PRN Pain, moderate (4-7) Alprazolam 0.25 mg 08/18/18 04:43 Xanax PO 08/25/18 04:44 BID PRN Anxiety Aspirin 81 mg 08/18/18 10:00 08/18/18 10:18 Ecotrin PO 81 mg DAILY JUANITA Administration Atorvastatin Calcium 40 mg 08/18/18 17:00 Lipitor PO DIN JUANITA Clopidogrel Bisulfate 75 mg 08/19/18 10:00 Plavix PO DAILY JUANITA Dextrose 0 ml 08/17/18 22:42 Dextrose 50% Inj IV STAT PRN Hypoglycemia Protocol Protocol Heparin Sodium (Porcine) 5,000 units 08/18/18 09:30 08/18/18 10:18 Heparin SC 5,000 units Q8 JUANITA Administration Protocol Dextrose 1,000 mls @ 0 mls/hr 08/17/18 22:42 Dextrose 5% In Water 1000 Ml IV .Q0M PRN Hypoglycemia Protocol Protocol Per Protocol Insulin Human Regular 0 units 08/18/18 07:30 08/18/18 08:30 Humulin R Med SC Not Given ACHS JUANITA Protocol Metoprolol Tartrate 12.5 mg 08/18/18 04:45 08/18/18 05:30 Lopressor PO 12.5 mg Q12H JUANITA Administration Zolpidem Tartrate 5 mg 08/18/18 04:43 Ambien PO HS PRN Insomnia - Patient Studies Lab Studies: Lab Studies 08/18/18 08/18/18 08/18/18 Range/Units 09:00 09:00 06:10 WBC (4.5-11.0) 10^3/uL RBC (3.5-6.1) 10^6/uL Hgb (14.0-18.0) g/dL Hct (42.0-52.0) % MCV (80.0-105.0) fl MCH (25.0-35.0) pg MCHC (31.0-37.0) g/dl RDW (11.5-14.5) % Plt Count (120.0-450.0) 10^3/uL MPV (7.0-11.0) fl Neut % (Auto) (50.0-68.0) % Lymph % (Auto) (22.0-35.0) % Beckham % (Auto) (1.0-6.0) % Eos % (Auto) (1.5-5.0) % Baso % (Auto) (0.0-3.0) % Lymph # (Auto) (1.2-3.4) Beckham # (Auto) (0.1-0.6) Eos # (Auto) (0.0-0.7) Baso # (Auto) (0.0-2.0) K/mm3 Absolute Neuts (auto) (1.4-6.5) APTT 56.0 H (26.9-38.3) Seconds D-Dimer, Quantitative (0-243) ng/mlDDU Sodium 140 (132-148) mmol/L Potassium 4.3 (3.6-5.0) mmol/L Chloride 106 (98-107) mmol/L Carbon Dioxide 24 (21-33) mmol/L Anion Gap 14 (10-20) BUN 16 (7-21) mg/dL Creatinine 1.5 (0.8-1.5) mg/dl Est GFR ( Amer) 57 Est GFR (Non-Af Amer) 47 POC Glucose (mg/dL) (65-110) mg/dL Random Glucose 109 (70-110) mg/dL Hemoglobin A1c (4.2-6.5) % Calcium 9.1 (8.4-10.5) mg/dL Phosphorus 2.6 (2.5-4.5) mg/dL Magnesium 2.2 (1.7-2.2) mg/dL Total Bilirubin 1.0 (0.2-1.3) mg/dL AST 111 H D (17-59) U/L ALT 16 (7-56) U/L Alkaline Phosphatase 96 (38-126) U/L Lactate Dehydrogenase 800 H (333-699) U/L Total Creatine Kinase 773 H (35-230) U/L CK-MB (CK-2) 80.5 H (0.0-3.6) ng/mL CK-MB (CK-2) % 10.4 H (2.5-3.0) % Troponin I 25.80 H* D 17.10 H* D ng/mL NT-Pro-B Natriuret Pep (0-450) pg/mL Total Protein 7.2 (5.8-8.3) g/dL Albumin 3.8 (3.0-4.8) g/dL Globulin 3.4 gm/dL Albumin/Globulin Ratio 1.1 (1.1-1.8) Triglycerides (35-160) mg/dL Cholesterol (130-200) mg/dL LDL Cholesterol Direct (0-129) mg/dL HDL Cholesterol (29-60) mg/dL Free T4 (0.78-2.19) ng/dL TSH 3rd Generation (0.46-4.68) mIU/mL Urine Color (YELLOW) Urine Appearance (CLEAR) Urine pH (4.7-8.0) Ur Specific [place] (1.005-1.035) Urine Protein (<30 mg/dL) mg/dL Urine Glucose (UA) (NEGATIVE) mg/dL Urine Ketones (NEGATIVE) mg/dL Urine Blood (NEGATIVE) Urine Nitrate (NEGATIVE) Urine Bilirubin (NEGATIVE) Urine Urobilinogen (<1 E.U./dL) E.U./dL Ur Leukocyte Esterase (NEGATIVE) Anam/uL 08/18/18 08/18/18 08/18/18 Range/Units 06:10 02:44 01:25 WBC 14.0 H D (4.5-11.0) 10^3/uL RBC 5.35 (3.5-6.1) 10^6/uL Hgb 15.6 (14.0-18.0) g/dL Hct 44.2 (42.0-52.0) % MCV 82.6 (80.0-105.0) fl MCH 29.2 (25.0-35.0) pg MCHC 35.3 (31.0-37.0) g/dl RDW 13.7 (11.5-14.5) % Plt Count 152 (120.0-450.0) 10^3/uL MPV 9.7 (7.0-11.0) fl Neut % (Auto) 82.6 H (50.0-68.0) % Lymph % (Auto) 12.4 L (22.0-35.0) % Beckham % (Auto) 4.8 (1.0-6.0) % Eos % (Auto) 0.1 L (1.5-5.0) % Baso % (Auto) 0.1 (0.0-3.0) % Lymph # (Auto) 1.7 (1.2-3.4) Beck[place] # (Auto) 0.7 H (0.1-0.6) Eos # (Auto) 0.0 (0.0-0.7) Baso # (Auto) 0.02 (0.0-2.0) K/mm3 Absolute Neuts (auto) 11.58 H (1.4-6.5) APTT 35.3 (26.9-38.3) Seconds D-Dimer, Quantitative (0-243) ng/mlDDU Sodium (132-148) mmol/L Potassium (3.6-5.0) mmol/L Chloride (98-107) mmol/L Carbon Dioxide (21-33) mmol/L Anion Gap (10-20) BUN (7-21) mg/dL Creatinine (0.8-1.5) mg/dl Est GFR ( Amer) Est GFR (Non-Af Amer) POC Glucose (mg/dL) (65-110) mg/dL Random Glucose (70-110) mg/dL Hemoglobin A1c (4.2-6.5) % Calcium (8.4-10.5) mg/dL Phosphorus (2.5-4.5) mg/dL Magnesium (1.7-2.2) mg/dL Total Bilirubin (0.2-1.3) mg/dL AST (17-59) U/L ALT (7-56) U/L Alkaline Phosphatase (38-126) U/L Lactate Dehydrogenase 624 (333-699) U/L Total Creatine Kinase 513 H (35-230) U/L CK-MB (CK-2) 45.1 H (0.0-3.6) ng/mL CK-MB (CK-2) % 8.8 H (2.5-3.0) % Troponin I 14.20 H* D ng/mL NT-Pro-B Natriuret Pep (0-450) pg/mL Total Protein (5.8-8.3) g/dL Albumin (3.0-4.8) g/dL Globulin gm/dL Albumin/Globulin Ratio (1.1-1.8) Triglycerides (35-160) mg/dL Cholesterol (130-200) mg/dL LDL Cholesterol Direct (0-129) mg/dL HDL Cholesterol (29-60) mg/dL Free T4 (0.78-2.19) ng/dL TSH 3rd Generation (0.46-4.68) mIU/mL Urine Color (YELLOW) Urine Appearance (CLEAR) Urine pH (4.7-8.0) Ur Specific [place] (1.005-1.035) Urine Protein (<30 mg/dL) mg/dL Urine Glucose (UA) (NEGATIVE) mg/dL Urine Ketones (NEGATIVE) mg/dL Urine Blood (NEGATIVE) Urine Nitrate (NEGATIVE) Urine Bilirubin (NEGATIVE) Urine Urobilinogen (<1 E.U./dL) E.U./dL Ur Leukocyte Esterase (NEGATIVE) Anam/uL 08/17/18 08/17/18 08/17/18 Range/Units 23:59 22:21 19:00 WBC (4.5-11.0) 10^3/uL RBC (3.5-6.1) 10^6/uL Hgb (14.0-18.0) g/dL Hct (42.0-52.0) % MCV (80.0-105.0) fl MCH (25.0-35.0) pg MCHC (31.0-37.0) g/dl RDW (11.5-14.5) % Plt Count (120.0-450.0) 10^3/uL MPV (7.0-11.0) fl Neut % (Auto) (50.0-68.0) % Lymph % (Auto) (22.0-35.0) % Beck[place] % (Auto) (1.0-6.0) % Eos % (Auto) (1.5-5.0) % Baso % (Auto) (0.0-3.0) % Lymph # (Auto) (1.2-3.4) [place] # (Auto) (0.1-0.6) Eos # (Auto) (0.0-0.7) Baso # (Auto) (0.0-2.0) K/mm3 Absolute Neuts (auto) (1.4-6.5) APTT (26.9-38.3) Seconds D-Dimer, Quantitative (0-243) ng/mlDDU Sodium (132-148) mmol/L Potassium (3.6-5.0) mmol/L Chloride (98-107) mmol/L Carbon Dioxide (21-33) mmol/L Anion Gap (10-20) BUN (7-21) mg/dL Creatinine (0.8-1.5) mg/dl Est GFR ( Amer) Est GFR (Non-Af Amer) POC Glucose (mg/dL) 92 (65-110) mg/dL Random Glucose (70-110) mg/dL Hemoglobin A1c (4.2-6.5) % Calcium (8.4-10.5) mg/dL Phosphorus (2.5-4.5) mg/dL Magnesium (1.7-2.2) mg/dL Total Bilirubin (0.2-1.3) mg/dL AST (17-59) U/L ALT (7-56) U/L Alkaline Phosphatase (38-126) U/L Lactate Dehydrogenase (333-699) U/L Total Creatine Kinase (35-230) U/L CK-MB (CK-2) (0.0-3.6) ng/mL CK-MB (CK-2) % (2.5-3.0) % Troponin I ng/mL NT-Pro-B Natriuret Pep (0-450) pg/mL Total Protein (5.8-8.3) g/dL Albumin (3.0-4.8) g/dL Globulin gm/dL Albumin/Globulin Ratio (1.1-1.8) Triglycerides (35-160) mg/dL Cholesterol (130-200) mg/dL LDL Cholesterol Direct (0-129) mg/dL HDL Cholesterol (29-60) mg/dL Free T4 1.02 (0.78-2.19) ng/dL TSH 3rd Generation 2.36 (0.46-4.68) mIU/mL Urine Color Yellow (YELLOW) Urine Appearance Clear (CLEAR) Urine pH 6.5 (4.7-8.0) Ur Specific [place] 1.010 (1.005-1.035) Urine Protein Negative (<30 mg/dL) mg/dL Urine Glucose (UA) Negative (NEGATIVE) mg/dL Urine Ketones Negative (NEGATIVE) mg/dL Urine Blood Negative (NEGATIVE) Urine Nitrate Negative (NEGATIVE) Urine Bilirubin Negative (NEGATIVE) Urine Urobilinogen 0.2 (<1 E.U./dL) E.U./dL Ur Leukocyte Esterase Negative (NEGATIVE) Anam/uL 08/17/18 08/17/18 08/17/18 Range/Units 19:00 19:00 19:00 WBC 8.4 (4.5-11.0) 10^3/uL RBC 5.03 (3.5-6.1) 10^6/uL Hgb 14.6 (14.0-18.0) g/dL Hct 41.6 L (42.0-52.0) % MCV 82.7 (80.0-105.0) fl MCH 29.0 (25.0-35.0) pg MCHC 35.1 (31.0-37.0) g/dl RDW 13.7 (11.5-14.5) % Plt Count 157 (120.0-450.0) 10^3/uL MPV 9.5 (7.0-11.0) fl Neut % (Auto) 55.6 (50.0-68.0) % Lymph % (Auto) 35.4 H (22.0-35.0) % [place] % (Auto) 7.5 H (1.0-6.0) % Eos % (Auto) 1.3 L (1.5-5.0) % Baso % (Auto) 0.2 (0.0-3.0) % Lymph # (Auto) 3.0 (1.2-3.4) [place] # (Auto) 0.6 (0.1-0.6) Eos # (Auto) 0.1 (0.0-0.7) Baso # (Auto) 0.02 (0.0-2.0) K/mm3 Absolute Neuts (auto) 4.67 (1.4-6.5) APTT (26.9-38.3) Seconds D-Dimer, Quantitative (0-243) ng/mlDDU Sodium (132-148) mmol/L Potassium (3.6-5.0) mmol/L Chloride (98-107) mmol/L Carbon Dioxide (21-33) mmol/L Anion Gap (10-20) BUN (7-21) mg/dL Creatinine (0.8-1.5) mg/dl Est GFR ( Amer) Est GFR (Non-Af Amer) POC Glucose (mg/dL) (65-110) mg/dL Random Glucose (70-110) mg/dL Hemoglobin A1c 5.4 (4.2-6.5) % Calcium (8.4-10.5) mg/dL Phosphorus (2.5-4.5) mg/dL Magnesium (1.7-2.2) mg/dL Total Bilirubin (0.2-1.3) mg/dL AST (17-59) U/L ALT (7-56) U/L Alkaline Phosphatase (38-126) U/L Lactate Dehydrogenase (333-699) U/L Total Creatine Kinase (35-230) U/L CK-MB (CK-2) (0.0-3.6) ng/mL CK-MB (CK-2) % (2.5-3.0) % Troponin I ng/mL NT-Pro-B Natriuret Pep (0-450) pg/mL Total Protein (5.8-8.3) g/dL Albumin (3.0-4.8) g/dL Globulin gm/dL Albumin/Globulin Ratio (1.1-1.8) Triglycerides 323 H (35-160) mg/dL Cholesterol 216 H (130-200) mg/dL LDL Cholesterol Direct 122 (0-129) mg/dL HDL Cholesterol 39 (29-60) mg/dL Free T4 (0.78-2.19) ng/dL TSH 3rd Generation (0.46-4.68) mIU/mL Urine Color (YELLOW) Urine Appearance (CLEAR) Urine pH (4.7-8.0) Ur Specific [place] (1.005-1.035) Urine Protein (<30 mg/dL) mg/dL Urine Glucose (UA) (NEGATIVE) mg/dL Urine Ketones (NEGATIVE) mg/dL Urine Blood (NEGATIVE) Urine Nitrate (NEGATIVE) Urine Bilirubin (NEGATIVE) Urine Urobilinogen (<1 E.U./dL) E.U./dL Ur Leukocyte Esterase (NEGATIVE) Anam/uL 08/17/18 08/17/18 Range/Units 19:00 19:00 WBC (4.5-11.0) 10^3/uL RBC (3.5-6.1) 10^6/uL Hgb (14.0-18.0) g/dL Hct (42.0-52.0) % MCV (80.0-105.0) fl MCH (25.0-35.0) pg MCHC (31.0-37.0) g/dl RDW (11.5-14.5) % Plt Count (120.0-450.0) 10^3/uL MPV (7.0-11.0) fl Neut % (Auto) (50.0-68.0) % Lymph % (Auto) (22.0-35.0) % [place] % (Auto) (1.0-6.0) % Eos % (Auto) (1.5-5.0) % Baso % (Auto) (0.0-3.0) % Lymph # (Auto) (1.2-3.4) [place] # (Auto) (0.1-0.6) Eos # (Auto) (0.0-0.7) Baso # (Auto) (0.0-2.0) K/mm3 Absolute Neuts (auto) (1.4-6.5) APTT (26.9-38.3) Seconds D-Dimer, Quantitative 196 (0-243) ng/mlDDU Sodium 138 (132-148) mmol/L Potassium 4.4 (3.6-5.0) mmol/L Chloride 104 (98-107) mmol/L Carbon Dioxide 23 (21-33) mmol/L Anion Gap 16 (10-20) BUN 20 (7-21) mg/dL Creatinine 1.6 H (0.8-1.5) mg/dl Est GFR ( Amer) 53 Est GFR (Non-Af Amer) 44 POC Glucose (mg/dL) (65-110) mg/dL Random Glucose 125 H (70-110) mg/dL Hemoglobin A1c (4.2-6.5) % Calcium 9.7 (8.4-10.5) mg/dL Phosphorus (2.5-4.5) mg/dL Magnesium (1.7-2.2) mg/dL Total Bilirubin 0.8 (0.2-1.3) mg/dL AST 25 (17-59) U/L ALT 9 (7-56) U/L Alkaline Phosphatase 92 (38-126) U/L Lactate Dehydrogenase 553 (333-699) U/L Total Creatine Kinase 77 (35-230) U/L CK-MB (CK-2) (0.0-3.6) ng/mL CK-MB (CK-2) % (2.5-3.0) % Troponin I 0.03 ng/mL NT-Pro-B Natriuret Pep 1160 H (0-450) pg/mL Total Protein 8.0 (5.8-8.3) g/dL Albumin 4.6 (3.0-4.8) g/dL Globulin 3.4 gm/dL Albumin/Globulin Ratio 1.3 (1.1-1.8) Triglycerides (35-160) mg/dL Cholesterol (130-200) mg/dL LDL Cholesterol Direct (0-129) mg/dL HDL Cholesterol (29-60) mg/dL Free T4 (0.78-2.19) ng/dL TSH 3rd Generation (0.46-4.68) mIU/mL Urine Color (YELLOW) Urine Appearance (CLEAR) Urine pH (4.7-8.0) Ur Specific [place] (1.005-1.035) Urine Protein (<30 mg/dL) mg/dL Urine Glucose (UA) (NEGATIVE) mg/dL Urine Ketones (NEGATIVE) mg/dL Urine Blood (NEGATIVE) Urine Nitrate (NEGATIVE) Urine Bilirubin (NEGATIVE) Urine Urobilinogen (<1 E.U./dL) E.U./dL Ur Leukocyte Esterase (NEGATIVE) Anam/uL Laboratory Results - last 24 hr 08/17/18 08/17/18 08/17/18 19:00 19:00 19:00 WBC 8.4 RBC 5.03 Hgb 14.6 Hct 41.6 L MCV 82.7 MCH 29.0 MCHC 35.1 RDW 13.7 Plt Count 157 MPV 9.5 Neut % (Auto) 55.6 Lymph % (Auto) 35.4 H [place] % (Auto) 7.5 H Eos % (Auto) 1.3 L Baso % (Auto) 0.2 Lymph # (Auto) 3.0 [place] # (Auto) 0.6 Eos # (Auto) 0.1 Baso # (Auto) 0.02 Absolute Neuts (auto) 4.67 APTT D-Dimer, Quantitative 196 Sodium 138 Potassium 4.4 Chloride 104 Carbon Dioxide 23 Anion Gap 16 BUN 20 Creatinine 1.6 H Est GFR ( Amer) 53 Est GFR (Non-Af Amer) 44 POC Glucose (mg/dL) Random Glucose 125 H Hemoglobin A1c Calcium 9.7 Phosphorus Magnesium Total Bilirubin 0.8 AST 25 ALT 9 Alkaline Phosphatase 92 Lactate Dehydrogenase 553 Total Creatine Kinase 77 CK-MB (CK-2) CK-MB (CK-2) % Troponin I 0.03 NT-Pro-B Natriuret Pep 1160 H Total Protein 8.0 Albumin 4.6 Globulin 3.4 Albumin/Globulin Ratio 1.3 Triglycerides Cholesterol LDL Cholesterol Direct HDL Cholesterol Free T4 TSH 3rd Generation Urine Color Urine Appearance Urine pH Ur Specific [place] Urine Protein Urine Glucose (UA) Urine Ketones Urine Blood Urine Nitrate Urine Bilirubin Urine Urobilinogen Ur Leukocyte Esterase 08/17/18 08/17/18 08/17/18 19:00 19:00 19:00 WBC RBC Hgb Hct MCV MCH MCHC RDW Plt Count MPV Neut % (Auto) Lymph % (Auto) [place] % (Auto) Eos % (Auto) Baso % (Auto) Lymph # (Auto) [place] # (Auto) Eos # (Auto) Baso # (Auto) Absolute Neuts (auto) APTT D-Dimer, Quantitative Sodium Potassium Chloride Carbon Dioxide Anion Gap BUN Creatinine Est GFR ( Amer) Est GFR (Non-Af Amer) POC Glucose (mg/dL) Random Glucose Hemoglobin A1c 5.4 Calcium Phosphorus Magnesium Total Bilirubin AST ALT Alkaline Phosphatase Lactate Dehydrogenase Total Creatine Kinase CK-MB (CK-2) CK-MB (CK-2) % Troponin I NT-Pro-B Natriuret Pep Total Protein Albumin Globulin Albumin/Globulin Ratio Triglycerides 323 H Cholesterol 216 H LDL Cholesterol Direct 122 HDL Cholesterol 39 Free T4 1.02 TSH 3rd Generation 2.36 Urine Color Urine Appearance Urine pH Ur Specific [place] Urine Protein Urine Glucose (UA) Urine Ketones Urine Blood Urine Nitrate Urine Bilirubin Urine Urobilinogen Ur Leukocyte Esterase 08/17/18 08/17/18 08/18/18 22:21 23:59 01:25 WBC RBC Hgb Hct MCV MCH MCHC RDW Plt Count MPV Neut % (Auto) Lymph % (Auto) [place] % (Auto) Eos % (Auto) Baso % (Auto) Lymph # (Auto) [place] # (Auto) Eos # (Auto) Baso # (Auto) Absolute Neuts (auto) APTT D-Dimer, Quantitative Sodium Potassium Chloride Carbon Dioxide Anion Gap BUN Creatinine Est GFR ( Amer) Est GFR (Non-Af Amer) POC Glucose (mg/dL) 92 Random Glucose Hemoglobin A1c Calcium Phosphorus Magnesium Total Bilirubin AST ALT Alkaline Phosphatase Lactate Dehydrogenase 624 Total Creatine Kinase 513 H CK-MB (CK-2) 45.1 H CK-MB (CK-2) % 8.8 H Troponin I 14.20 H* D NT-Pro-B Natriuret Pep Total Protein Albumin Globulin Albumin/Globulin Ratio Triglycerides Cholesterol LDL Cholesterol Direct HDL Cholesterol Free T4 TSH 3rd Generation Urine Color Yellow Urine Appearance Clear Urine pH 6.5 Ur Specific [place] 1.010 Urine Protein Negative Urine Glucose (UA) Negative Urine Ketones Negative Urine Blood Negative Urine Nitrate Negative Urine Bilirubin Negative Urine Urobilinogen 0.2 Ur Leukocyte Esterase Negative 08/18/18 08/18/18 08/18/18 02:44 06:10 06:10 WBC 14.0 H D RBC 5.35 Hgb 15.6 Hct 44.2 MCV 82.6 MCH 29.2 MCHC 35.3 RDW 13.7 Plt Count 152 MPV 9.7 Neut % (Auto) 82.6 H Lymph % (Auto) 12.4 L [place] % (Auto) 4.8 Eos % (Auto) 0.1 L Baso % (Auto) 0.1 Lymph # (Auto) 1.7 [place] # (Auto) 0.7 H Eos # (Auto) 0.0 Baso # (Auto) 0.02 Absolute Neuts (auto) 11.58 H APTT 35.3 D-Dimer, Quantitative Sodium 140 Potassium 4.3 Chloride 106 Carbon Dioxide 24 Anion Gap 14 BUN 16 Creatinine 1.5 Est GFR ( Amer) 57 Est GFR (Non-Af Amer) 47 POC Glucose (mg/dL) Random Glucose 109 Hemoglobin A1c Calcium 9.1 Phosphorus 2.6 Magnesium 2.2 Total Bilirubin 1.0 AST 111 H D ALT 16 Alkaline Phosphatase 96 Lactate Dehydrogenase Total Creatine Kinase CK-MB (CK-2) CK-MB (CK-2) % Troponin I 17.10 H* D NT-Pro-B Natriuret Pep Total Protein 7.2 Albumin 3.8 Globulin 3.4 Albumin/Globulin Ratio 1.1 Triglycerides Cholesterol LDL Cholesterol Direct HDL Cholesterol Free T4 TSH 3rd Generation Urine Color Urine Appearance Urine pH Ur Specific [place] Urine Protein Urine Glucose (UA) Urine Ketones Urine Blood Urine Nitrate Urine Bilirubin Urine Urobilinogen Ur Leukocyte Esterase 08/18/18 08/18/18 09:00 09:00 WBC RBC Hgb Hct MCV MCH MCHC RDW Plt Count MPV Neut % (Auto) Lymph % (Auto) [place] % (Auto) Eos % (Auto) Baso % (Auto) Lymph # (Auto) [place] # (Auto) Eos # (Auto) Baso # (Auto) Absolute Neuts (auto) APTT 56.0 H D-Dimer, Quantitative Sodium Potassium Chloride Carbon Dioxide Anion Gap BUN Creatinine Est GFR ( Amer) Est GFR (Non-Af Amer) POC Glucose (mg/dL) Random Glucose Hemoglobin A1c Calcium Phosphorus Magnesium Total Bilirubin AST ALT Alkaline Phosphatase Lactate Dehydrogenase 800 H Total Creatine Kinase 773 H CK-MB (CK-2) 80.5 H CK-MB (CK-2) % 10.4 H Troponin I 25.80 H* D NT-Pro-B Natriuret Pep Total Protein Albumin Globulin Albumin/Globulin Ratio Triglycerides Cholesterol LDL Cholesterol Direct HDL Cholesterol Free T4 TSH 3rd Generation Urine Color Urine Appearance Urine pH Ur Specific [place] Urine Protein Urine Glucose (UA) Urine Ketones Urine Blood Urine Nitrate Urine Bilirubin Urine Urobilinogen Ur Leukocyte Esterase Radiology Impressions: Radiology Impressions Chest X-Ray 08/17/18 19:01 IMPRESSION: No active disease. EKG/Cardiology Studies: Cardiology / EKG Studies 08/17/18 19:01 EKG [ELECTROCARDIOGRAM] Stat Comment: Reason For Exam: sob 08/18/18 02:25 ELECTROCARDIOGRAM Stat Comment: Reason For Exam: elev trops 08/18/18 04:43 ELECTROCARDIOGRAM Urgent Comment: 12 lead EKG upon arrival in unit Reason For Exam: post ptca 08/18/18 04:45 ELECTROCARDIOGRAM DAILY Comment: Reason For Exam: chest pain 08/18/18 07:00 EKG [ELECTROCARDIOGRAM] Routine Comment: Reason For Exam: STENT LAD 08/19/18 04:45 ELECTROCARDIOGRAM DAILY Comment: Reason For Exam: chest pain Fingerstick Blood Sugar Results: 92 Critical Care Progress Note - Nutrition Nutrition: Nutrition Category Date Time Status Heart Healthy Diet [DIET] Diets 08/17/18 Breakfast Active Assessment/Plan - Assessment and Plan (Free Text) Assessment: 63 y/o male admitted to ICU for observation s/p right groin cardiac cath with NANCY stent placed in LAD in the setting of STEMI. Doing weel, surgical site intact, no hematoma, bleeding, neurovascular intact. Plan: Neuro: -AAO x3 in NAD -maintain normthermia Cardio: -s/p PTCA for STEMI with NANCY in LAD -f/u Echo -continue asa, plavix, lopressor, lipitor -BP montoring, continue -maintain MAP> 65 -cardiology following Pulm: - no s/sx. On 2l NC -maintain SaO2 > 92 % ID: -afebrile, no leukocytosis : -Cr 1.6 possible contrast nephropathy vs CKD -f/u renal US -continue hydration -replete lytes as needed -maintain euvolemia, euglycemia -UOP monitoring Prophylaxis: GI ppx: no indication SCD, heparin sq Heart healthy diet Right groin surgical cath site intact, no neurovascular compromise, patient is hemodynamically stable, possible transfer to [facility]. Case reviewed and discussed with attending Dr Rodrigues <Silvestre Rodrigues - Last Filed: 08/18/18 13:34> CCU Objective - Vital Signs / Intake & Output Vital Signs (Last 4 hours): Vital Signs Pulse Resp 08/18/18 10:00 71 18 Intake and Output (Last 8hrs): Intake & Output 08/17/18 08/18/18 08/18/18 22:59 06:59 14:59 Intake Total 900 Output Total 500 Balance 400 Weight 170 lb 156 lb Intake: IV 900 Left Forearm 900 Oral 0 Output: Urine 500 Urine, Voided 500 Other: # Bowel Movements 0 - Medications Active Medications: Active Medications Generic Name Dose Route Start Last Admin Trade Name Freq PRN Reason Stop Dose Admin Acetaminophen 650 mg 08/17/18 22:02 Tylenol 325mg Tab PO Q6H PRN Pain, moderate (4-7) Alprazolam 0.25 mg 08/18/18 04:43 Xanax PO 08/25/18 04:44 BID PRN Anxiety Aspirin 81 mg 08/18/18 10:00 08/18/18 10:18 Ecotrin PO 81 mg DAILY JUANITA Administration Atorvastatin Calcium 40 mg 08/18/18 17:00 Lipitor PO DIN JUANITA Clopidogrel Bisulfate 75 mg 08/19/18 10:00 Plavix PO DAILY JUANITA Dextrose 0 ml 08/17/18 22:42 Dextrose 50% Inj IV STAT PRN Hypoglycemia Protocol Protocol Heparin Sodium (Porcine) 5,000 units 08/18/18 09:30 08/18/18 10:18 Heparin SC 5,000 units Q8 JUANITA Administration Protocol Dextrose 1,000 mls @ 0 mls/hr 08/17/18 22:42 Dextrose 5% In Water 1000 Ml IV .Q0M PRN Hypoglycemia Protocol Protocol Per Protocol Insulin Human Regular 0 units 08/18/18 07:30 08/18/18 08:30 Humulin R Med SC Not Given ACHS JUANITA Protocol Metoprolol Tartrate 12.5 mg 08/18/18 04:45 08/18/18 05:30 Lopressor PO 12.5 mg Q12H JUANITA Administration Zolpidem Tartrate 5 mg 08/18/18 04:43 Ambien PO HS PRN Insomnia - Patient Studies Lab Studies: Lab Studies 08/18/18 08/18/18 08/18/18 Range/Units 09:00 09:00 06:10 WBC (4.5-11.0) 10^3/uL RBC (3.5-6.1) 10^6/uL Hgb (14.0-18.0) g/dL Hct (42.0-52.0) % MCV (80.0-105.0) fl MCH (25.0-35.0) pg MCHC (31.0-37.0) g/dl RDW (11.5-14.5) % Plt Count (120.0-450.0) 10^3/uL MPV (7.0-11.0) fl Neut % (Auto) (50.0-68.0) % Lymph % (Auto) (22.0-35.0) % [place] % (Auto) (1.0-6.0) % Eos % (Auto) (1.5-5.0) % Baso % (Auto) (0.0-3.0) % Lymph # (Auto) (1.2-3.4) [place] # (Auto) (0.1-0.6) Eos # (Auto) (0.0-0.7) Baso # (Auto) (0.0-2.0) K/mm3 Absolute Neuts (auto) (1.4-6.5) APTT 56.0 H (26.9-38.3) Seconds D-Dimer, Quantitative (0-243) ng/mlDDU Sodium 140 (132-148) mmol/L Potassium 4.3 (3.6-5.0) mmol/L Chloride 106 (98-107) mmol/L Carbon Dioxide 24 (21-33) mmol/L Anion Gap 14 (10-20) BUN 16 (7-21) mg/dL Creatinine 1.5 (0.8-1.5) mg/dl Est GFR ( Amer) 57 Est GFR (Non-Af Amer) 47 POC Glucose (mg/dL) (65-110) mg/dL Random Glucose 109 (70-110) mg/dL Hemoglobin A1c (4.2-6.5) % Calcium 9.1 (8.4-10.5) mg/dL Phosphorus 2.6 (2.5-4.5) mg/dL Magnesium 2.2 (1.7-2.2) mg/dL Total Bilirubin 1.0 (0.2-1.3) mg/dL AST 111 H D (17-59) U/L ALT 16 (7-56) U/L Alkaline Phosphatase 96 (38-126) U/L Lactate Dehydrogenase 800 H (333-699) U/L Total Creatine Kinase 773 H (35-230) U/L CK-MB (CK-2) 80.5 H (0.0-3.6) ng/mL CK-MB (CK-2) % 10.4 H (2.5-3.0) % Troponin I 25.80 H* D 17.10 H* D ng/mL NT-Pro-B Natriuret Pep (0-450) pg/mL Total Protein 7.2 (5.8-8.3) g/dL Albumin 3.8 (3.0-4.8) g/dL Globulin 3.4 gm/dL Albumin/Globulin Ratio 1.1 (1.1-1.8) Triglycerides (35-160) mg/dL Cholesterol (130-200) mg/dL LDL Cholesterol Direct (0-129) mg/dL HDL Cholesterol (29-60) mg/dL Free T4 (0.78-2.19) ng/dL TSH 3rd Generation (0.46-4.68) mIU/mL Urine Color (YELLOW) Urine Appearance (CLEAR) Urine pH (4.7-8.0) Ur Specific [place] (1.005-1.035) Urine Protein (<30 mg/dL) mg/dL Urine Glucose (UA) (NEGATIVE) mg/dL Urine Ketones (NEGATIVE) mg/dL Urine Blood (NEGATIVE) Urine Nitrate (NEGATIVE) Urine Bilirubin (NEGATIVE) Urine Urobilinogen (<1 E.U./dL) E.U./dL Ur Leukocyte Esterase (NEGATIVE) Anam/uL 08/18/18 08/18/18 08/18/18 Range/Units 06:10 02:44 01:25 WBC 14.0 H D (4.5-11.0) 10^3/uL RBC 5.35 (3.5-6.1) 10^6/uL Hgb 15.6 (14.0-18.0) g/dL Hct 44.2 (42.0-52.0) % MCV 82.6 (80.0-105.0) fl MCH 29.2 (25.0-35.0) pg MCHC 35.3 (31.0-37.0) g/dl RDW 13.7 (11.5-14.5) % Plt Count 152 (120.0-450.0) 10^3/uL MPV 9.7 (7.0-11.0) fl Neut % (Auto) 82.6 H (50.0-68.0) % Lymph % (Auto) 12.4 L (22.0-35.0) % Beckham % (Auto) 4.8 (1.0-6.0) % Eos % (Auto) 0.1 L (1.5-5.0) % Baso % (Auto) 0.1 (0.0-3.0) % Lymph # (Auto) 1.7 (1.2-3.4) Beckham # (Auto) 0.7 H (0.1-0.6) Eos # (Auto) 0.0 (0.0-0.7) Baso # (Auto) 0.02 (0.0-2.0) K/mm3 Absolute Neuts (auto) 11.58 H (1.4-6.5) APTT 35.3 (26.9-38.3) Seconds D-Dimer, Quantitative (0-243) ng/mlDDU Sodium (132-148) mmol/L Potassium (3.6-5.0) mmol/L Chloride (98-107) mmol/L Carbon Dioxide (21-33) mmol/L Anion Gap (10-20) BUN (7-21) mg/dL Creatinine (0.8-1.5) mg/dl Est GFR ( Amer) Est GFR (Non-Af Amer) POC Glucose (mg/dL) (65-110) mg/dL Random Glucose (70-110) mg/dL Hemoglobin A1c (4.2-6.5) % Calcium (8.4-10.5) mg/dL Phosphorus (2.5-4.5) mg/dL Magnesium (1.7-2.2) mg/dL Total Bilirubin (0.2-1.3) mg/dL AST (17-59) U/L ALT (7-56) U/L Alkaline Phosphatase (38-126) U/L Lactate Dehydrogenase 624 (333-699) U/L Total Creatine Kinase 513 H (35-230) U/L CK-MB (CK-2) 45.1 H (0.0-3.6) ng/mL CK-MB (CK-2) % 8.8 H (2.5-3.0) % Troponin I 14.20 H* D ng/mL NT-Pro-B Natriuret Pep (0-450) pg/mL Total Protein (5.8-8.3) g/dL Albumin (3.0-4.8) g/dL Globulin gm/dL Albumin/Globulin Ratio (1.1-1.8) Triglycerides (35-160) mg/dL Cholesterol (130-200) mg/dL LDL Cholesterol Direct (0-129) mg/dL HDL Cholesterol (29-60) mg/dL Free T4 (0.78-2.19) ng/dL TSH 3rd Generation (0.46-4.68) mIU/mL Urine Color (YELLOW) Urine Appearance (CLEAR) Urine pH (4.7-8.0) Ur Specific [place] (1.005-1.035) Urine Protein (<30 mg/dL) mg/dL Urine Glucose (UA) (NEGATIVE) mg/dL Urine Ketones (NEGATIVE) mg/dL Urine Blood (NEGATIVE) Urine Nitrate (NEGATIVE) Urine Bilirubin (NEGATIVE) Urine Urobilinogen (<1 E.U./dL) E.U./dL Ur Leukocyte Esterase (NEGATIVE) Anam/uL 08/17/18 08/17/18 08/17/18 Range/Units 23:59 22:21 19:00 WBC (4.5-11.0) 10^3/uL RBC (3.5-6.1) 10^6/uL Hgb (14.0-18.0) g/dL Hct (42.0-52.0) % MCV (80.0-105.0) fl MCH (25.0-35.0) pg MCHC (31.0-37.0) g/dl RDW (11.5-14.5) % Plt Count (120.0-450.0) 10^3/uL MPV (7.0-11.0) fl Neut % (Auto) (50.0-68.0) % Lymph % (Auto) (22.0-35.0) % Beckham % (Auto) (1.0-6.0) % Eos % (Auto) (1.5-5.0) % Baso % (Auto) (0.0-3.0) % Lymph # (Auto) (1.2-3.4) [place] # (Auto) (0.1-0.6) Eos # (Auto) (0.0-0.7) Baso # (Auto) (0.0-2.0) K/mm3 Absolute Neuts (auto) (1.4-6.5) APTT (26.9-38.3) Seconds D-Dimer, Quantitative (0-243) ng/mlDDU Sodium (132-148) mmol/L Potassium (3.6-5.0) mmol/L Chloride (98-107) mmol/L Carbon Dioxide (21-33) mmol/L Anion Gap (10-20) BUN (7-21) mg/dL Creatinine (0.8-1.5) mg/dl Est GFR ( Amer) Est GFR (Non-Af Amer) POC Glucose (mg/dL) 92 (65-110) mg/dL Random Glucose (70-110) mg/dL Hemoglobin A1c (4.2-6.5) % Calcium (8.4-10.5) mg/dL Phosphorus (2.5-4.5) mg/dL Magnesium (1.7-2.2) mg/dL Total Bilirubin (0.2-1.3) mg/dL AST (17-59) U/L ALT (7-56) U/L Alkaline Phosphatase (38-126) U/L Lactate Dehydrogenase (333-699) U/L Total Creatine Kinase (35-230) U/L CK-MB (CK-2) (0.0-3.6) ng/mL CK-MB (CK-2) % (2.5-3.0) % Troponin I ng/mL NT-Pro-B Natriuret Pep (0-450) pg/mL Total Protein (5.8-8.3) g/dL Albumin (3.0-4.8) g/dL Globulin gm/dL Albumin/Globulin Ratio (1.1-1.8) Triglycerides (35-160) mg/dL Cholesterol (130-200) mg/dL LDL Cholesterol Direct (0-129) mg/dL HDL Cholesterol (29-60) mg/dL Free T4 1.02 (0.78-2.19) ng/dL TSH 3rd Generation 2.36 (0.46-4.68) mIU/mL Urine Color Yellow (YELLOW) Urine Appearance Clear (CLEAR) Urine pH 6.5 (4.7-8.0) Ur Specific [place] 1.010 (1.005-1.035) Urine Protein Negative (<30 mg/dL) mg/dL Urine Glucose (UA) Negative (NEGATIVE) mg/dL Urine Ketones Negative (NEGATIVE) mg/dL Urine Blood Negative (NEGATIVE) Urine Nitrate Negative (NEGATIVE) Urine Bilirubin Negative (NEGATIVE) Urine Urobilinogen 0.2 (<1 E.U./dL) E.U./dL Ur Leukocyte Esterase Negative (NEGATIVE) Anam/uL 08/17/18 08/17/18 08/17/18 Range/Units 19:00 19:00 19:00 WBC 8.4 (4.5-11.0) 10^3/uL RBC 5.03 (3.5-6.1) 10^6/uL Hgb 14.6 (14.0-18.0) g/dL Hct 41.6 L (42.0-52.0) % MCV 82.7 (80.0-105.0) fl MCH 29.0 (25.0-35.0) pg MCHC 35.1 (31.0-37.0) g/dl RDW 13.7 (11.5-14.5) % Plt Count 157 (120.0-450.0) 10^3/uL MPV 9.5 (7.0-11.0) fl Neut % (Auto) 55.6 (50.0-68.0) % Lymph % (Auto) 35.4 H (22.0-35.0) % Beckham % (Auto) 7.5 H (1.0-6.0) % Eos % (Auto) 1.3 L (1.5-5.0) % Baso % (Auto) 0.2 (0.0-3.0) % Lymph # (Auto) 3.0 (1.2-3.4) Beckham # (Auto) 0.6 (0.1-0.6) Eos # (Auto) 0.1 (0.0-0.7) Baso # (Auto) 0.02 (0.0-2.0) K/mm3 Absolute Neuts (auto) 4.67 (1.4-6.5) APTT (26.9-38.3) Seconds D-Dimer, Quantitative (0-243) ng/mlDDU Sodium (132-148) mmol/L Potassium (3.6-5.0) mmol/L Chloride (98-107) mmol/L Carbon Dioxide (21-33) mmol/L Anion Gap (10-20) BUN (7-21) mg/dL Creatinine (0.8-1.5) mg/dl Est GFR ( Amer) Est GFR (Non-Af Amer) POC Glucose (mg/dL) (65-110) mg/dL Random Glucose (70-110) mg/dL Hemoglobin A1c 5.4 (4.2-6.5) % Calcium (8.4-10.5) mg/dL Phosphorus (2.5-4.5) mg/dL Magnesium (1.7-2.2) mg/dL Total Bilirubin (0.2-1.3) mg/dL AST (17-59) U/L ALT (7-56) U/L Alkaline Phosphatase (38-126) U/L Lactate Dehydrogenase (333-699) U/L Total Creatine Kinase (35-230) U/L CK-MB (CK-2) (0.0-3.6) ng/mL CK-MB (CK-2) % (2.5-3.0) % Troponin I ng/mL NT-Pro-B Natriuret Pep (0-450) pg/mL Total Protein (5.8-8.3) g/dL Albumin (3.0-4.8) g/dL Globulin gm/dL Albumin/Globulin Ratio (1.1-1.8) Triglycerides 323 H (35-160) mg/dL Cholesterol 216 H (130-200) mg/dL LDL Cholesterol Direct 122 (0-129) mg/dL HDL Cholesterol 39 (29-60) mg/dL Free T4 (0.78-2.19) ng/dL TSH 3rd Generation (0.46-4.68) mIU/mL Urine Color (YELLOW) Urine Appearance (CLEAR) Urine pH (4.7-8.0) Ur Specific [place] (1.005-1.035) Urine Protein (<30 mg/dL) mg/dL Urine Glucose (UA) (NEGATIVE) mg/dL Urine Ketones (NEGATIVE) mg/dL Urine Blood (NEGATIVE) Urine Nitrate (NEGATIVE) Urine Bilirubin (NEGATIVE) Urine Urobilinogen (<1 E.U./dL) E.U./dL Ur Leukocyte Esterase (NEGATIVE) Anam/uL 08/17/18 08/17/18 Range/Units 19:00 19:00 WBC (4.5-11.0) 10^3/uL RBC (3.5-6.1) 10^6/uL Hgb (14.0-18.0) g/dL Hct (42.0-52.0) % MCV (80.0-105.0) fl MCH (25.0-35.0) pg MCHC (31.0-37.0) g/dl RDW (11.5-14.5) % Plt Count (120.0-450.0) 10^3/uL MPV (7.0-11.0) fl Neut % (Auto) (50.0-68.0) % Lymph % (Auto) (22.0-35.0) % Beckham % (Auto) (1.0-6.0) % Eos % (Auto) (1.5-5.0) % Baso % (Auto) (0.0-3.0) % Lymph # (Auto) (1.2-3.4) [place] # (Auto) (0.1-0.6) Eos # (Auto) (0.0-0.7) Baso # (Auto) (0.0-2.0) K/mm3 Absolute Neuts (auto) (1.4-6.5) APTT (26.9-38.3) Seconds D-Dimer, Quantitative 196 (0-243) ng/mlDDU Sodium 138 (132-148) mmol/L Potassium 4.4 (3.6-5.0) mmol/L Chloride 104 (98-107) mmol/L Carbon Dioxide 23 (21-33) mmol/L Anion Gap 16 (10-20) BUN 20 (7-21) mg/dL Creatinine 1.6 H (0.8-1.5) mg/dl Est GFR ( Amer) 53 Est GFR (Non-Af Amer) 44 POC Glucose (mg/dL) (65-110) mg/dL Random Glucose 125 H (70-110) mg/dL Hemoglobin A1c (4.2-6.5) % Calcium 9.7 (8.4-10.5) mg/dL Phosphorus (2.5-4.5) mg/dL Magnesium (1.7-2.2) mg/dL Total Bilirubin 0.8 (0.2-1.3) mg/dL AST 25 (17-59) U/L ALT 9 (7-56) U/L Alkaline Phosphatase 92 (38-126) U/L Lactate Dehydrogenase 553 (333-699) U/L Total Creatine Kinase 77 (35-230) U/L CK-MB (CK-2) (0.0-3.6) ng/mL CK-MB (CK-2) % (2.5-3.0) % Troponin I 0.03 ng/mL NT-Pro-B Natriuret Pep 1160 H (0-450) pg/mL Total Protein 8.0 (5.8-8.3) g/dL Albumin 4.6 (3.0-4.8) g/dL Globulin 3.4 gm/dL Albumin/Globulin Ratio 1.3 (1.1-1.8) Triglycerides (35-160) mg/dL Cholesterol (130-200) mg/dL LDL Cholesterol Direct (0-129) mg/dL HDL Cholesterol (29-60) mg/dL Free T4 (0.78-2.19) ng/dL TSH 3rd Generation (0.46-4.68) mIU/mL Urine Color (YELLOW) Urine Appearance (CLEAR) Urine pH (4.7-8.0) Ur Specific [place] (1.005-1.035) Urine Protein (<30 mg/dL) mg/dL Urine Glucose (UA) (NEGATIVE) mg/dL Urine Ketones (NEGATIVE) mg/dL Urine Blood (NEGATIVE) Urine Nitrate (NEGATIVE) Urine Bilirubin (NEGATIVE) Urine Urobilinogen (<1 E.U./dL) E.U./dL Ur Leukocyte Esterase (NEGATIVE) Anam/uL Laboratory Results - last 24 hr 08/17/18 08/17/18 08/17/18 19:00 19:00 19:00 WBC 8.4 RBC 5.03 Hgb 14.6 Hct 41.6 L MCV 82.7 MCH 29.0 MCHC 35.1 RDW 13.7 Plt Count 157 MPV 9.5 Neut % (Auto) 55.6 Lymph % (Auto) 35.4 H [place] % (Auto) 7.5 H Eos % (Auto) 1.3 L Baso % (Auto) 0.2 Lymph # (Auto) 3.0 [place] # (Auto) 0.6 Eos # (Auto) 0.1 Baso # (Auto) 0.02 Absolute Neuts (auto) 4.67 APTT D-Dimer, Quantitative 196 Sodium 138 Potassium 4.4 Chloride 104 Carbon Dioxide 23 Anion Gap 16 BUN 20 Creatinine 1.6 H Est GFR ( Amer) 53 Est GFR (Non-Af Amer) 44 POC Glucose (mg/dL) Random Glucose 125 H Hemoglobin A1c Calcium 9.7 Phosphorus Magnesium Total Bilirubin 0.8 AST 25 ALT 9 Alkaline Phosphatase 92 Lactate Dehydrogenase 553 Total Creatine Kinase 77 CK-MB (CK-2) CK-MB (CK-2) % Troponin I 0.03 NT-Pro-B Natriuret Pep 1160 H Total Protein 8.0 Albumin 4.6 Globulin 3.4 Albumin/Globulin Ratio 1.3 Triglycerides Cholesterol LDL Cholesterol Direct HDL Cholesterol Free T4 TSH 3rd Generation Urine Color Urine Appearance Urine pH Ur Specific [place] Urine Protein Urine Glucose (UA) Urine Ketones Urine Blood Urine Nitrate Urine Bilirubin Urine Urobilinogen Ur Leukocyte Esterase 08/17/18 08/17/18 08/17/18 19:00 19:00 19:00 WBC RBC Hgb Hct MCV MCH MCHC RDW Plt Count MPV Neut % (Auto) Lymph % (Auto) [place] % (Auto) Eos % (Auto) Baso % (Auto) Lymph # (Auto) [place] # (Auto) Eos # (Auto) Baso # (Auto) Absolute Neuts (auto) APTT D-Dimer, Quantitative Sodium Potassium Chloride Carbon Dioxide Anion Gap BUN Creatinine Est GFR ( Amer) Est GFR (Non-Af Amer) POC Glucose (mg/dL) Random Glucose Hemoglobin A1c 5.4 Calcium Phosphorus Magnesium Total Bilirubin AST ALT Alkaline Phosphatase Lactate Dehydrogenase Total Creatine Kinase CK-MB (CK-2) CK-MB (CK-2) % Troponin I NT-Pro-B Natriuret Pep Total Protein Albumin Globulin Albumin/Globulin Ratio Triglycerides 323 H Cholesterol 216 H LDL Cholesterol Direct 122 HDL Cholesterol 39 Free T4 1.02 TSH 3rd Generation 2.36 Urine Color Urine Appearance Urine pH Ur Specific [place] Urine Protein Urine Glucose (UA) Urine Ketones Urine Blood Urine Nitrate Urine Bilirubin Urine Urobilinogen Ur Leukocyte Esterase 08/17/18 08/17/18 08/18/18 22:21 23:59 01:25 WBC RBC Hgb Hct MCV MCH MCHC RDW Plt Count MPV Neut % (Auto) Lymph % (Auto) [place] % (Auto) Eos % (Auto) Baso % (Auto) Lymph # (Auto) [place] # (Auto) Eos # (Auto) Baso # (Auto) Absolute Neuts (auto) APTT D-Dimer, Quantitative Sodium Potassium Chloride Carbon Dioxide Anion Gap BUN Creatinine Est GFR ( Amer) Est GFR (Non-Af Amer) POC Glucose (mg/dL) 92 Random Glucose Hemoglobin A1c Calcium Phosphorus Magnesium Total Bilirubin AST ALT Alkaline Phosphatase Lactate Dehydrogenase 624 Total Creatine Kinase 513 H CK-MB (CK-2) 45.1 H CK-MB (CK-2) % 8.8 H Troponin I 14.20 H* D NT-Pro-B Natriuret Pep Total Protein Albumin Globulin Albumin/Globulin Ratio Triglycerides Cholesterol LDL Cholesterol Direct HDL Cholesterol Free T4 TSH 3rd Generation Urine Color Yellow Urine Appearance Clear Urine pH 6.5 Ur Specific [place] 1.010 Urine Protein Negative Urine Glucose (UA) Negative Urine Ketones Negative Urine Blood Negative Urine Nitrate Negative Urine Bilirubin Negative Urine Urobilinogen 0.2 Ur Leukocyte Esterase Negative 08/18/18 08/18/18 08/18/18 02:44 06:10 06:10 WBC 14.0 H D RBC 5.35 Hgb 15.6 Hct 44.2 MCV 82.6 MCH 29.2 MCHC 35.3 RDW 13.7 Plt Count 152 MPV 9.7 Neut % (Auto) 82.6 H Lymph % (Auto) 12.4 L [place] % (Auto) 4.8 Eos % (Auto) 0.1 L Baso % (Auto) 0.1 Lymph # (Auto) 1.7 [place] # (Auto) 0.7 H Eos # (Auto) 0.0 Baso # (Auto) 0.02 Absolute Neuts (auto) 11.58 H APTT 35.3 D-Dimer, Quantitative Sodium 140 Potassium 4.3 Chloride 106 Carbon Dioxide 24 Anion Gap 14 BUN 16 Creatinine 1.5 Est GFR ( Amer) 57 Est GFR (Non-Af Amer) 47 POC Glucose (mg/dL) Random Glucose 109 Hemoglobin A1c Calcium 9.1 Phosphorus 2.6 Magnesium 2.2 Total Bilirubin 1.0 AST 111 H D ALT 16 Alkaline Phosphatase 96 Lactate Dehydrogenase Total Creatine Kinase CK-MB (CK-2) CK-MB (CK-2) % Troponin I 17.10 H* D NT-Pro-B Natriuret Pep Total Protein 7.2 Albumin 3.8 Globulin 3.4 Albumin/Globulin Ratio 1.1 Triglycerides Cholesterol LDL Cholesterol Direct HDL Cholesterol Free T4 TSH 3rd Generation Urine Color Urine Appearance Urine pH Ur Specific [place] Urine Protein Urine Glucose (UA) Urine Ketones Urine Blood Urine Nitrate Urine Bilirubin Urine Urobilinogen Ur Leukocyte Esterase 08/18/18 08/18/18 09:00 09:00 WBC RBC Hgb Hct MCV MCH MCHC RDW Plt Count MPV Neut % (Auto) Lymph % (Auto) [place] % (Auto) Eos % (Auto) Baso % (Auto) Lymph # (Auto) [place] # (Auto) Eos # (Auto) Baso # (Auto) Absolute Neuts (auto) APTT 56.0 H D-Dimer, Quantitative Sodium Potassium Chloride Carbon Dioxide Anion Gap BUN Creatinine Est GFR ( Amer) Est GFR (Non-Af Amer) POC Glucose (mg/dL) Random Glucose Hemoglobin A1c Calcium Phosphorus Magnesium Total Bilirubin AST ALT Alkaline Phosphatase Lactate Dehydrogenase 800 H Total Creatine Kinase 773 H CK-MB (CK-2) 80.5 H CK-MB (CK-2) % 10.4 H Troponin I 25.80 H* D NT-Pro-B Natriuret Pep Total Protein Albumin Globulin Albumin/Globulin Ratio Triglycerides Cholesterol LDL Cholesterol Direct HDL Cholesterol Free T4 TSH 3rd Generation Urine Color Urine Appearance Urine pH Ur Specific [place] Urine Protein Urine Glucose (UA) Urine Ketones Urine Blood Urine Nitrate Urine Bilirubin Urine Urobilinogen Ur Leukocyte Esterase Radiology Impressions: Radiology Impressions Chest X-Ray 08/17/18 19:01 IMPRESSION: No active disease. EKG/Cardiology Studies: Cardiology / EKG Studies 08/17/18 19:01 EKG [ELECTROCARDIOGRAM] Stat Comment: Reason For Exam: sob 08/18/18 02:25 ELECTROCARDIOGRAM Stat Comment: Reason For Exam: elev trops 08/18/18 04:43 ELECTROCARDIOGRAM Urgent Comment: 12 lead EKG upon arrival in unit Reason For Exam: post ptca 08/18/18 04:45 ELECTROCARDIOGRAM DAILY Comment: Reason For Exam: chest pain 08/18/18 07:00 EKG [ELECTROCARDIOGRAM] Routine Comment: Reason For Exam: STENT LAD 08/19/18 04:45 ELECTROCARDIOGRAM DAILY Comment: Reason For Exam: chest pain Critical Care Progress Note - Nutrition Nutrition: Nutrition Category Date Time Status Heart Healthy Diet [DIET] Diets 08/17/18 Breakfast Active Assessment/Plan - Assessment and Plan (Free Text) Plan: Patient seen and examined on rounds with resident, agree with note with following additions/exceptions: Patient is 63yo male a/w STEMI, s/p PCI to LAD Currently afebrile, HD stable, comfortable in NAD, denies CP, SOB Cont with ASA, Plavix, Statin, BB FS control Check HgbA1C, TSH, Lipid Panel IVF CHeck Ulytes GI ppx DVT ppx Monitor in CCU
--- NOTE | 2018-08-18 18:18 | CARD ---
APPROVED REPORT Date of service: 08/18/2018 EXAM: Two-dimensional and M-mode echocardiogram with Doppler and color Doppler. INDICATION UT 2D DIMENSIONS Left Atrium (2D)3.7 (1.6-4.0cm)IVSd1.4 (0.7-1.1cm) LVDd5.9 (3.9-5.9cm)PWd0.9 (0.7-1.1cm) LVDs5.0 (2.5-4.0cm)FS (%) 14.5 % LVEF (%)30.4 (>50%) M-Mode DIMENSIONS Aortic Root2.50 (2.2-3.7cm)Aortic Cusp Exc.1.40 (1.5-2.0cm) Aortic Valve AoV Peak Ittrvegy154.0cm/sAoV VTI59.7cmAO Peak GR.40mmHg LVOT Peak Lotwgmll506.0cm/sLVOT VTI21.90cmAO Mean GR.21mmHg Mitral Valve MV E Ciajgqtx414.0cm/sMV A Bjnxhhtk89.2cm/sE/A ratio1.6 TDI E/Lateral E'0.0E/Medial E'0.0 LEFT VENTRICLE The left ventricle is normal size. There is normal left ventricular wall thickness. The systolic function is severely impaired. Significant regional wall motion abnormalities noted. Transmitral Doppler flow pattern is Grade II-pseudonormal filling dynamics. No left ventricle thrombus noted on this study. RIGHT VENTRICLE The right ventricle is normal size. There is normal right ventricular wall thickness. The right ventricular systolic function is normal. ATRIA The left atrium size is normal. The right atrium size is normal. AORTIC VALVE The aortic valve is not well visualized. There is severe aortic regurgitation. There is no aortic valvular stenosis. MITRAL VALVE The mitral valve is moderately thickened. Mitral regurgitation is mild. There is no mitral valve stenosis. TRICUSPID VALVE The tricuspid valve is normal in structure. There is no tricuspid valve regurgitation noted. PULMONIC VALVE The pulmonary valve is normal in structure. There is no pulmonic valvular regurgitation. GREAT VESSELS The aortic root is normal in size. The IVC is normal in size and collapses >50% with inspiration. PERICARDIAL EFFUSION There is no pericardial effusion. <Conclusion> There is normal left ventricular wall thickness. The systolic function is severely impaired. Significant regional wall motion abnormalities noted. Transmitral Doppler flow pattern is Grade II-pseudonormal filling dynamics. No left ventricle thrombus noted on this study. There is severe aortic regurgitation. Mitral regurgitation is mild.
[2018-08-19 07:13] LABS: BASO # 0.02 K/mm3 (0.0-2.0); BASO % 0.2 % (0.0-3.0); EOS # 0.1 (0.0-0.7); EOS % 0.5 % (1.5-5.0); HEMOGLOBIN 13.1 g/dL (14.0-18.0); LYMPH # 2.9 (1.2-3.4); LYMPH % 31.1 % (22.0-35.0); MEAN CELL VOLUME 83.2 fl (80.0-105.0); MEAN CORPUSCULAR HEMOGLOBIN 28.2 pg (25.0-35.0); MEAN CORPUSCULAR HGB CONC 33.9 g/dl (31.0-37.0); MEAN PLATELET VOLUME 9.6 fl (7.0-11.0); MONO # 0.8 (0.1-0.6); MONO % 8.4 % (1.0-6.0); RBC 4.65 10^6/uL (3.5-6.1); RED CELL DISTRIBUTION WIDTH 13.9 % (11.5-14.5); WHITE BLOOD COUNT 9.4 10^3/uL (4.5-11.0)
[2018-08-19 08:01] LABS: ALB/GLOB RATIO 1.3 (1.1-1.8); ALBUMIN 3.7 g/dL (3.0-4.8); ALT/SGPT 26 U/L (7-56); AST/SGOT 144 U/L (17-59); BLOOD UREA NITROGEN 15 mg/dL (7-21); CALCIUM 9.1 mg/dL (8.4-10.5); GFR NON-AFRICAN AMERICAN 51
--- NOTE | 2018-08-19 08:03 | CP.CCUPN ---
<NixonGregory - Last Filed: 08/19/18 11:56> CCU Subjective - Physician Review Subjective (Free Text): Gregory Alicea DO. Critical Care Progress note Patient seen and examined at bedside, awake and in NAD. He reports no complaints with no significant overnight events. No right leg weakness , numbness, or swelling on right groin cardiac cath site. CCU Objective - Vital Signs / Intake & Output Vital Signs (Last 4 hours): Vital Signs Pulse Resp BP Pulse Ox 08/19/18 06:10 66 22 97 08/19/18 06:00 67 24 114/48 L 97 08/19/18 05:50 66 24 96 08/19/18 05:40 63 22 95 08/19/18 05:30 61 22 97 08/19/18 05:20 85 54 H 95 08/19/18 05:10 67 43 H 93 L 08/19/18 05:00 68 24 94 L 08/19/18 04:50 65 23 94 L 08/19/18 04:40 68 24 93 L 08/19/18 04:30 66 44 H 94 L 08/19/18 04:20 75 28 H 95 08/19/18 04:10 65 23 96 Intake and Output (Last 8hrs): Intake & Output 08/18/18 08/19/18 08/19/18 22:59 06:59 14:59 Intake Total 600 Balance 600 Intake: IV 600 Left Forearm 600 Oral 0 Other: # Bowel Movements 0 - Physical Exam Head: Positive for: Atraumatic Mouth: Positive for: Moist Mucous Membranes Nose (External): Positive for: Atraumatic Nose (Internal): Positive for: Normal Inspection Neck: Positive for: Normal Range of Motion Respiratory/Chest: Positive for: Clear to Auscultation, Good Air Exchange. Negative for: Respiratory Distress, Accessory Muscle Use, Wheezes, Decreased Breath Sounds, Retracting, Rhonchi, Tachypneic Cardiovascular: Positive for: Regular Rate and Rhythm, Normal S1, S2. Negative for: Murmurs Abdomen: Negative for: Tenderness, Distention, Rebound, Guarding Back: Positive for: Normal Inspection Upper Extremity: Positive for: Normal ROM Lower Extremity: Positive for: Normal Inspection, Normal ROM. Negative for: Edema Neurological: Positive for: GCS=15, Speech Normal Skin: Positive for: Warm, Dry, Normal Color. Negative for: Rashes Psychiatric: Positive for: Alert, Oriented x 3 - Medications Active Medications: Active Medications Generic Name Dose Route Start Last Admin Trade Name Freq PRN Reason Stop Dose Admin Acetaminophen 650 mg 08/17/18 22:02 Tylenol 325mg Tab PO Q6H PRN Pain, moderate (4-7) Alprazolam 0.25 mg 08/18/18 04:43 Xanax PO 08/25/18 04:44 BID PRN Anxiety Aspirin 81 mg 08/18/18 10:00 08/18/18 10:18 Ecotrin PO 81 mg DAILY JUANITA Administration Atorvastatin Calcium 40 mg 08/18/18 17:00 08/18/18 17:20 Lipitor PO 40 mg DIN JUANITA Administration Clopidogrel Bisulfate 75 mg 08/19/18 10:00 Plavix PO DAILY JUANITA Dextrose 0 ml 08/17/18 22:42 Dextrose 50% Inj IV STAT PRN Hypoglycemia Protocol Protocol Heparin Sodium (Porcine) 5,000 units 08/18/18 09:30 08/19/18 06:34 Heparin SC 5,000 units Q8 JUANITA Administration Protocol Dextrose 1,000 mls @ 0 mls/hr 08/17/18 22:42 Dextrose 5% In Water 1000 Ml IV .Q0M PRN Hypoglycemia Protocol Protocol Per Protocol Insulin Human Regular 0 units 08/18/18 07:30 08/18/18 23:15 Humulin R Med SC Not Given ACHS [facility] Protocol Metoprolol Tartrate 12.5 mg 08/18/18 04:45 08/18/18 17:20 Lopressor PO 12.5 mg Q12H JUANITA Administration Zolpidem Tartrate 5 mg 08/18/18 04:43 08/18/18 21:10 Ambien PO 5 mg HS PRN Administration Insomnia - Patient Studies Lab Studies: Lab Studies 08/19/18 08/19/18 08/19/18 Range/Units 07:37 06:30 06:30 WBC 9.4 D (4.5-11.0) 10^3/uL RBC 4.65 (3.5-6.1) 10^6/uL Hgb 13.1 L D (14.0-18.0) g/dL Hct 38.7 L (42.0-52.0) % MCV 83.2 (80.0-105.0) fl MCH 28.2 (25.0-35.0) pg MCHC 33.9 (31.0-37.0) g/dl RDW 13.9 (11.5-14.5) % Plt Count 141 (120.0-450.0) 10^3/uL MPV 9.6 (7.0-11.0) fl Neut % (Auto) 59.8 (50.0-68.0) % Lymph % (Auto) 31.1 (22.0-35.0) % [place] % (Auto) 8.4 H (1.0-6.0) % Eos % (Auto) 0.5 L (1.5-5.0) % Baso % (Auto) 0.2 (0.0-3.0) % Lymph # (Auto) 2.9 (1.2-3.4) [place] # (Auto) 0.8 H (0.1-0.6) Eos # (Auto) 0.1 (0.0-0.7) Baso # (Auto) 0.02 (0.0-2.0) K/mm3 Absolute Neuts (auto) 5.59 (1.4-6.5) APTT (26.9-38.3) Seconds Sodium 140 (132-148) mmol/L Potassium 4.3 (3.6-5.0) mmol/L Chloride 109 H (98-107) mmol/L Carbon Dioxide 26 (21-33) mmol/L Anion Gap 9 L (10-20) BUN 15 (7-21) mg/dL Creatinine 1.4 (0.8-1.5) mg/dl Est GFR ( Amer) > 60 Est GFR (Non-Af Amer) 51 POC Glucose (mg/dL) 93 (65-110) mg/dL Random Glucose 91 (70-110) mg/dL Hemoglobin A1c (4.2-6.5) % Calcium 9.1 (8.4-10.5) mg/dL Phosphorus 3.2 (2.5-4.5) mg/dL Magnesium 2.0 (1.7-2.2) mg/dL Total Bilirubin 1.3 (0.2-1.3) mg/dL AST 144 H D (17-59) U/L ALT 26 (7-56) U/L Alkaline Phosphatase 80 (38-126) U/L Lactate Dehydrogenase (333-699) U/L Total Creatine Kinase (35-230) U/L CK-MB (CK-2) (0.0-3.6) ng/mL CK-MB (CK-2) % (2.5-3.0) % Troponin I 25.10 H* ng/mL Total Protein 6.6 (5.8-8.3) g/dL Albumin 3.7 (3.0-4.8) g/dL Globulin 2.9 gm/dL Albumin/Globulin Ratio 1.3 (1.1-1.8) 08/18/18 08/18/18 08/18/18 Range/Units 21:45 16:28 11:00 WBC (4.5-11.0) 10^3/uL RBC (3.5-6.1) 10^6/uL Hgb (14.0-18.0) g/dL Hct (42.0-52.0) % MCV (80.0-105.0) fl MCH (25.0-35.0) pg MCHC (31.0-37.0) g/dl RDW (11.5-14.5) % Plt Count (120.0-450.0) 10^3/uL MPV (7.0-11.0) fl Neut % (Auto) (50.0-68.0) % Lymph % (Auto) (22.0-35.0) % [place] % (Auto) (1.0-6.0) % Eos % (Auto) (1.5-5.0) % Baso % (Auto) (0.0-3.0) % Lymph # (Auto) (1.2-3.4) [place] # (Auto) (0.1-0.6) Eos # (Auto) (0.0-0.7) Baso # (Auto) (0.0-2.0) K/mm3 Absolute Neuts (auto) (1.4-6.5) APTT (26.9-38.3) Seconds Sodium (132-148) mmol/L Potassium (3.6-5.0) mmol/L Chloride (98-107) mmol/L Carbon Dioxide (21-33) mmol/L Anion Gap (10-20) BUN (7-21) mg/dL Creatinine (0.8-1.5) mg/dl Est GFR ( Amer) Est GFR (Non-Af Amer) POC Glucose (mg/dL) 108 93 121 H (65-110) mg/dL Random Glucose (70-110) mg/dL Hemoglobin A1c (4.2-6.5) % Calcium (8.4-10.5) mg/dL Phosphorus (2.5-4.5) mg/dL Magnesium (1.7-2.2) mg/dL Total Bilirubin (0.2-1.3) mg/dL AST (17-59) U/L ALT (7-56) U/L Alkaline Phosphatase (38-126) U/L Lactate Dehydrogenase (333-699) U/L Total Creatine Kinase (35-230) U/L CK-MB (CK-2) (0.0-3.6) ng/mL CK-MB (CK-2) % (2.5-3.0) % Troponin I ng/mL Total Protein (5.8-8.3) g/dL Albumin (3.0-4.8) g/dL Globulin gm/dL Albumin/Globulin Ratio (1.1-1.8) 08/18/18 08/18/18 08/18/18 Range/Units 09:00 09:00 07:55 WBC (4.5-11.0) 10^3/uL RBC (3.5-6.1) 10^6/uL Hgb (14.0-18.0) g/dL Hct (42.0-52.0) % MCV (80.0-105.0) fl MCH (25.0-35.0) pg MCHC (31.0-37.0) g/dl RDW (11.5-14.5) % Plt Count (120.0-450.0) 10^3/uL MPV (7.0-11.0) fl Neut % (Auto) (50.0-68.0) % Lymph % (Auto) (22.0-35.0) % [place] % (Auto) (1.0-6.0) % Eos % (Auto) (1.5-5.0) % Baso % (Auto) (0.0-3.0) % Lymph # (Auto) (1.2-3.4) [place] # (Auto) (0.1-0.6) Eos # (Auto) (0.0-0.7) Baso # (Auto) (0.0-2.0) K/mm3 Absolute Neuts (auto) (1.4-6.5) APTT 56.0 H (26.9-38.3) Seconds Sodium (132-148) mmol/L Potassium (3.6-5.0) mmol/L Chloride (98-107) mmol/L Carbon Dioxide (21-33) mmol/L Anion Gap (10-20) BUN (7-21) mg/dL Creatinine (0.8-1.5) mg/dl Est GFR ( Amer) Est GFR (Non-Af Amer) POC Glucose (mg/dL) 107 (65-110) mg/dL Random Glucose (70-110) mg/dL Hemoglobin A1c (4.2-6.5) % Calcium (8.4-10.5) mg/dL Phosphorus (2.5-4.5) mg/dL Magnesium (1.7-2.2) mg/dL Total Bilirubin (0.2-1.3) mg/dL AST (17-59) U/L ALT (7-56) U/L Alkaline Phosphatase (38-126) U/L Lactate Dehydrogenase 800 H (333-699) U/L Total Creatine Kinase 773 H (35-230) U/L CK-MB (CK-2) 80.5 H (0.0-3.6) ng/mL CK-MB (CK-2) % 10.4 H (2.5-3.0) % Troponin I 25.80 H* D ng/mL Total Protein (5.8-8.3) g/dL Albumin (3.0-4.8) g/dL Globulin gm/dL Albumin/Globulin Ratio (1.1-1.8) 08/17/18 Range/Units 19:00 WBC (4.5-11.0) 10^3/uL RBC (3.5-6.1) 10^6/uL Hgb (14.0-18.0) g/dL Hct (42.0-52.0) % MCV (80.0-105.0) fl MCH (25.0-35.0) pg MCHC (31.0-37.0) g/dl RDW (11.5-14.5) % Plt Count (120.0-450.0) 10^3/uL MPV (7.0-11.0) fl Neut % (Auto) (50.0-68.0) % Lymph % (Auto) (22.0-35.0) % [place] % (Auto) (1.0-6.0) % Eos % (Auto) (1.5-5.0) % Baso % (Auto) (0.0-3.0) % Lymph # (Auto) (1.2-3.4) [place] # (Auto) (0.1-0.6) Eos # (Auto) (0.0-0.7) Baso # (Auto) (0.0-2.0) K/mm3 Absolute Neuts (auto) (1.4-6.5) APTT (26.9-38.3) Seconds Sodium (132-148) mmol/L Potassium (3.6-5.0) mmol/L Chloride (98-107) mmol/L Carbon Dioxide (21-33) mmol/L Anion Gap (10-20) BUN (7-21) mg/dL Creatinine (0.8-1.5) mg/dl Est GFR ( Amer) Est GFR (Non-Af Amer) POC Glucose (mg/dL) (65-110) mg/dL Random Glucose (70-110) mg/dL Hemoglobin A1c 5.4 (4.2-6.5) % Calcium (8.4-10.5) mg/dL Phosphorus (2.5-4.5) mg/dL Magnesium (1.7-2.2) mg/dL Total Bilirubin (0.2-1.3) mg/dL AST (17-59) U/L ALT (7-56) U/L Alkaline Phosphatase (38-126) U/L Lactate Dehydrogenase (333-699) U/L Total Creatine Kinase (35-230) U/L CK-MB (CK-2) (0.0-3.6) ng/mL CK-MB (CK-2) % (2.5-3.0) % Troponin I ng/mL Total Protein (5.8-8.3) g/dL Albumin (3.0-4.8) g/dL Globulin gm/dL Albumin/Globulin Ratio (1.1-1.8) Laboratory Results - last 24 hr 08/17/18 08/18/18 08/18/18 19:00 07:55 09:00 WBC RBC Hgb Hct MCV MCH MCHC RDW Plt Count MPV Neut % (Auto) Lymph % (Auto) [place] % (Auto) Eos % (Auto) Baso % (Auto) Lymph # (Auto) [place] # (Auto) Eos # (Auto) Baso # (Auto) Absolute Neuts (auto) APTT Sodium Potassium Chloride Carbon Dioxide Anion Gap BUN Creatinine Est GFR ( Amer) Est GFR (Non-Af Amer) POC Glucose (mg/dL) 107 Random Glucose Hemoglobin A1c 5.4 Calcium Phosphorus Magnesium Total Bilirubin AST ALT Alkaline Phosphatase Lactate Dehydrogenase 800 H Total Creatine Kinase 773 H CK-MB (CK-2) 80.5 H CK-MB (CK-2) % 10.4 H Troponin I 25.80 H* D Total Protein Albumin Globulin Albumin/Globulin Ratio 08/18/18 08/18/18 08/18/18 09:00 11:00 16:28 WBC RBC Hgb Hct MCV MCH MCHC RDW Plt Count MPV Neut % (Auto) Lymph % (Auto) [place] % (Auto) Eos % (Auto) Baso % (Auto) Lymph # (Auto) [place] # (Auto) Eos # (Auto) Baso # (Auto) Absolute Neuts (auto) APTT 56.0 H Sodium Potassium Chloride Carbon Dioxide Anion Gap BUN Creatinine Est GFR ( Amer) Est GFR (Non-Af Amer) POC Glucose (mg/dL) 121 H 93 Random Glucose Hemoglobin A1c Calcium Phosphorus Magnesium Total Bilirubin AST ALT Alkaline Phosphatase Lactate Dehydrogenase Total Creatine Kinase CK-MB (CK-2) CK-MB (CK-2) % Troponin I Total Protein Albumin Globulin Albumin/Globulin Ratio 08/18/18 08/19/18 08/19/18 21:45 06:30 06:30 WBC 9.4 D RBC 4.65 Hgb 13.1 L D Hct 38.7 L MCV 83.2 MCH 28.2 MCHC 33.9 RDW 13.9 Plt Count 141 MPV 9.6 Neut % (Auto) 59.8 Lymph % (Auto) 31.1 [place] % (Auto) 8.4 H Eos % (Auto) 0.5 L Baso % (Auto) 0.2 Lymph # (Auto) 2.9 [place] # (Auto) 0.8 H Eos # (Auto) 0.1 Baso # (Auto) 0.02 Absolute Neuts (auto) 5.59 APTT Sodium 140 Potassium 4.3 Chloride 109 H Carbon Dioxide 26 Anion Gap 9 L BUN 15 Creatinine 1.4 Est GFR ( Amer) > 60 Est GFR (Non-Af Amer) 51 POC Glucose (mg/dL) 108 Random Glucose 91 Hemoglobin A1c Calcium 9.1 Phosphorus 3.2 Magnesium 2.0 Total Bilirubin 1.3 AST 144 H D ALT 26 Alkaline Phosphatase 80 Lactate Dehydrogenase Total Creatine Kinase CK-MB (CK-2) CK-MB (CK-2) % Troponin I 25.10 H* Total Protein 6.6 Albumin 3.7 Globulin 2.9 Albumin/Globulin Ratio 1.3 08/19/18 07:37 WBC RBC Hgb Hct MCV MCH MCHC RDW Plt Count MPV Neut % (Auto) Lymph % (Auto) [place] % (Auto) Eos % (Auto) Baso % (Auto) Lymph # (Auto) [place] # (Auto) Eos # (Auto) Baso # (Auto) Absolute Neuts (auto) APTT Sodium Potassium Chloride Carbon Dioxide Anion Gap BUN Creatinine Est GFR ( Amer) Est GFR (Non-Af Amer) POC Glucose (mg/dL) 93 Random Glucose Hemoglobin A1c Calcium Phosphorus Magnesium Total Bilirubin AST ALT Alkaline Phosphatase Lactate Dehydrogenase Total Creatine Kinase CK-MB (CK-2) CK-MB (CK-2) % Troponin I Total Protein Albumin Globulin Albumin/Globulin Ratio Radiology Impressions: Radiology Impressions Chest X-Ray 08/17/18 19:01 IMPRESSION: No active disease. EKG/Cardiology Studies: Cardiology / EKG Studies 08/19/18 04:45 ELECTROCARDIOGRAM DAILY Comment: Reason For Exam: chest pain Fingerstick Blood Sugar Results: 147 Critical Care Progress Note - Nutrition Nutrition: Nutrition Category Date Time Status Heart Healthy Diet [DIET] Diets 08/17/18 Breakfast Active Assessment/Plan - Assessment and Plan (Free Text) Assessment: 63 y/o male admitted to ICU for observation s/p right groin cardiac cath with NANCY stent placed in LAD in the setting of STEMI. Doing weel, surgical site intact, no hematoma, bleeding, neurovascular intact. Plan: Neuro: -AAO x3 in NAD -maintain normthermia Cardio: -s/p PTCA for STEMI with NANCY in LAD -f/u Echo (08/18) EF 30.4%, severe systolic LV dysfunction, severe AR -continue asa, plavix, lopressor, lipitor -BP montoring, continue -maintain MAP> 65 -cardiology following Pulm: - no s/sx. On 2L NC -maintain SaO2 > 92 % ID: -afebrile, no leukocytosis : -Cr 1.6 possible contrast nephropathy vs CKD -unremarkable renal US -continue hydration -replete lytes as needed -maintain euvolemia, euglycemia -UOP monitoring Prophylaxis: GI ppx: no indication SCD, heparin sq Heart healthy diet Right groin surgical cath site intact, no neurovascular compromise, patient is hemodynamically stable, transfer to telemetry today Case reviewed and discussed with attending Dr Rodrigues <Silvestre Rodrigues - Last Filed: 08/19/18 12:08> CCU Objective - Vital Signs / Intake & Output Intake and Output (Last 8hrs): Intake & Output 08/18/18 08/19/18 08/19/18 22:59 06:59 14:59 Intake Total 600 Balance 600 Intake: IV 600 Left Forearm 600 Oral 0 Other: # Bowel Movements 0 - Medications Active Medications: Active Medications Generic Name Dose Route Start Last Admin Trade Name Freq PRN Reason Stop Dose Admin Acetaminophen 650 mg 08/17/18 22:02 Tylenol 325mg Tab PO Q6H PRN Pain, moderate (4-7) Alprazolam 0.25 mg 08/18/18 04:43 Xanax PO 08/25/18 04:44 BID PRN Anxiety Aspirin 81 mg 08/18/18 10:00 08/19/18 09:26 Ecotrin PO 81 mg DAILY JUANITA Administration Atorvastatin Calcium 40 mg 08/18/18 17:00 08/18/18 17:20 Lipitor PO 40 mg DIN JUANITA Administration Clopidogrel Bisulfate 75 mg 08/19/18 10:00 08/19/18 09:26 Plavix PO 75 mg DAILY JUANITA Administration Dextrose 0 ml 08/17/18 22:42 Dextrose 50% Inj IV STAT PRN Hypoglycemia Protocol Protocol Heparin Sodium (Porcine) 5,000 units 08/18/18 09:30 08/19/18 06:34 Heparin SC 5,000 units Q8 JUANITA Administration Protocol Dextrose 1,000 mls @ 0 mls/hr 08/17/18 22:42 Dextrose 5% In Water 1000 Ml IV .Q0M PRN Hypoglycemia Protocol Protocol Per Protocol Insulin Human Regular 0 units 08/18/18 07:30 08/18/18 23:15 Humulin R Med SC Not Given ACHS JUANITA Protocol Metoprolol Tartrate 12.5 mg 08/18/18 04:45 08/18/18 17:20 Lopressor PO 12.5 mg Q12H JUANITA Administration Zolpidem Tartrate 5 mg 08/18/18 04:43 08/18/18 21:10 Ambien PO 5 mg HS PRN Administration Insomnia - Patient Studies Lab Studies: Microbiology Studies 08/17/18 22:21 Urine Culture - Final Urine,Clean Catch No Growth (<1,000 CFU/ML) Lab Studies 08/19/18 08/19/18 08/19/18 Range/Units 09:39 07:37 06:30 WBC (4.5-11.0) 10^3/uL RBC (3.5-6.1) 10^6/uL Hgb (14.0-18.0) g/dL Hct (42.0-52.0) % MCV (80.0-105.0) fl MCH (25.0-35.0) pg MCHC (31.0-37.0) g/dl RDW (11.5-14.5) % Plt Count (120.0-450.0) 10^3/uL MPV (7.0-11.0) fl Neut % (Auto) (50.0-68.0) % Lymph % (Auto) (22.0-35.0) % [place] % (Auto) (1.0-6.0) % Eos % (Auto) (1.5-5.0) % Baso % (Auto) (0.0-3.0) % Lymph # (Auto) (1.2-3.4) [place] # (Auto) (0.1-0.6) Eos # (Auto) (0.0-0.7) Baso # (Auto) (0.0-2.0) K/mm3 Absolute Neuts (auto) (1.4-6.5) Sodium 140 (132-148) mmol/L Potassium 4.3 (3.6-5.0) mmol/L Chloride 109 H (98-107) mmol/L Carbon Dioxide 26 (21-33) mmol/L Anion Gap 9 L (10-20) BUN 15 (7-21) mg/dL Creatinine 1.4 (0.8-1.5) mg/dl Est GFR ( Amer) > 60 Est GFR (Non-Af Amer) 51 POC Glucose (mg/dL) 93 (65-110) mg/dL Random Glucose 91 (70-110) mg/dL Hemoglobin A1c (4.2-6.5) % Calcium 9.1 (8.4-10.5) mg/dL Phosphorus 3.2 (2.5-4.5) mg/dL Magnesium 2.0 (1.7-2.2) mg/dL Total Bilirubin 1.3 (0.2-1.3) mg/dL GGT 32 (8-78) U/L AST 144 H D (17-59) U/L ALT 26 (7-56) U/L Alkaline Phosphatase 80 (38-126) U/L Troponin I 25.10 H* ng/mL Total Protein 6.6 (5.8-8.3) g/dL Albumin 3.7 (3.0-4.8) g/dL Globulin 2.9 gm/dL Albumin/Globulin Ratio 1.3 (1.1-1.8) 08/19/18 08/18/18 08/18/18 Range/Units 06:30 21:45 16:28 WBC 9.4 D (4.5-11.0) 10^3/uL RBC 4.65 (3.5-6.1) 10^6/uL Hgb 13.1 L D (14.0-18.0) g/dL Hct 38.7 L (42.0-52.0) % MCV 83.2 (80.0-105.0) fl MCH 28.2 (25.0-35.0) pg MCHC 33.9 (31.0-37.0) g/dl RDW 13.9 (11.5-14.5) % Plt Count 141 (120.0-450.0) 10^3/uL MPV 9.6 (7.0-11.0) fl Neut % (Auto) 59.8 (50.0-68.0) % Lymph % (Auto) 31.1 (22.0-35.0) % [place] % (Auto) 8.4 H (1.0-6.0) % Eos % (Auto) 0.5 L (1.5-5.0) % Baso % (Auto) 0.2 (0.0-3.0) % Lymph # (Auto) 2.9 (1.2-3.4) [place] # (Auto) 0.8 H (0.1-0.6) Eos # (Auto) 0.1 (0.0-0.7) Baso # (Auto) 0.02 (0.0-2.0) K/mm3 Absolute Neuts (auto) 5.59 (1.4-6.5) Sodium (132-148) mmol/L Potassium (3.6-5.0) mmol/L Chloride (98-107) mmol/L Carbon Dioxide (21-33) mmol/L Anion Gap (10-20) BUN (7-21) mg/dL Creatinine (0.8-1.5) mg/dl Est GFR ( Amer) Est GFR (Non-Af Amer) POC Glucose (mg/dL) 108 93 (65-110) mg/dL Random Glucose (70-110) mg/dL Hemoglobin A1c (4.2-6.5) % Calcium (8.4-10.5) mg/dL Phosphorus (2.5-4.5) mg/dL Magnesium (1.7-2.2) mg/dL Total Bilirubin (0.2-1.3) mg/dL GGT (8-78) U/L AST (17-59) U/L ALT (7-56) U/L Alkaline Phosphatase (38-126) U/L Troponin I ng/mL Total Protein (5.8-8.3) g/dL Albumin (3.0-4.8) g/dL Globulin gm/dL Albumin/Globulin Ratio (1.1-1.8) 08/18/18 08/18/18 08/17/18 Range/Units 11:00 07:55 19:00 WBC (4.5-11.0) 10^3/uL RBC (3.5-6.1) 10^6/uL Hgb (14.0-18.0) g/dL Hct (42.0-52.0) % MCV (80.0-105.0) fl MCH (25.0-35.0) pg MCHC (31.0-37.0) g/dl RDW (11.5-14.5) % Plt Count (120.0-450.0) 10^3/uL MPV (7.0-11.0) fl Neut % (Auto) (50.0-68.0) % Lymph % (Auto) (22.0-35.0) % [place] % (Auto) (1.0-6.0) % Eos % (Auto) (1.5-5.0) % Baso % (Auto) (0.0-3.0) % Lymph # (Auto) (1.2-3.4) [place] # (Auto) (0.1-0.6) Eos # (Auto) (0.0-0.7) Baso # (Auto) (0.0-2.0) K/mm3 Absolute Neuts (auto) (1.4-6.5) Sodium (132-148) mmol/L Potassium (3.6-5.0) mmol/L Chloride (98-107) mmol/L Carbon Dioxide (21-33) mmol/L Anion Gap (10-20) BUN (7-21) mg/dL Creatinine (0.8-1.5) mg/dl Est GFR ( Amer) Est GFR (Non-Af Amer) POC Glucose (mg/dL) 121 H 107 (65-110) mg/dL Random Glucose (70-110) mg/dL Hemoglobin A1c 5.4 (4.2-6.5) % Calcium (8.4-10.5) mg/dL Phosphorus (2.5-4.5) mg/dL Magnesium (1.7-2.2) mg/dL Total Bilirubin (0.2-1.3) mg/dL GGT (8-78) U/L AST (17-59) U/L ALT (7-56) U/L Alkaline Phosphatase (38-126) U/L Troponin I ng/mL Total Protein (5.8-8.3) g/dL Albumin (3.0-4.8) g/dL Globulin gm/dL Albumin/Globulin Ratio (1.1-1.8) Laboratory Results - last 24 hr 08/17/18 08/18/18 08/18/18 19:00 07:55 11:00 WBC RBC Hgb Hct MCV MCH MCHC RDW Plt Count MPV Neut % (Auto) Lymph % (Auto) [place] % (Auto) Eos % (Auto) Baso % (Auto) Lymph # (Auto) [place] # (Auto) Eos # (Auto) Baso # (Auto) Absolute Neuts (auto) Sodium Potassium Chloride Carbon Dioxide Anion Gap BUN Creatinine Est GFR ( Amer) Est GFR (Non-Af Amer) POC Glucose (mg/dL) 107 121 H Random Glucose Hemoglobin A1c 5.4 Calcium Phosphorus Magnesium Total Bilirubin GGT AST ALT Alkaline Phosphatase Troponin I Total Protein Albumin Globulin Albumin/Globulin Ratio 08/18/18 08/18/18 08/19/18 16:28 21:45 06:30 WBC 9.4 D RBC 4.65 Hgb 13.1 L D Hct 38.7 L MCV 83.2 MCH 28.2 MCHC 33.9 RDW 13.9 Plt Count 141 MPV 9.6 Neut % (Auto) 59.8 Lymph % (Auto) 31.1 [place] % (Auto) 8.4 H Eos % (Auto) 0.5 L Baso % (Auto) 0.2 Lymph # (Auto) 2.9 [place] # (Auto) 0.8 H Eos # (Auto) 0.1 Baso # (Auto) 0.02 Absolute Neuts (auto) 5.59 Sodium Potassium Chloride Carbon Dioxide Anion Gap BUN Creatinine Est GFR ( Amer) Est GFR (Non-Af Amer) POC Glucose (mg/dL) 93 108 Random Glucose Hemoglobin A1c Calcium Phosphorus Magnesium Total Bilirubin GGT AST ALT Alkaline Phosphatase Troponin I Total Protein Albumin Globulin Albumin/Globulin Ratio 08/19/18 08/19/18 08/19/18 06:30 07:37 09:39 WBC RBC Hgb Hct MCV MCH MCHC RDW Plt Count MPV Neut % (Auto) Lymph % (Auto) [place] % (Auto) Eos % (Auto) Baso % (Auto) Lymph # (Auto) [place] # (Auto) Eos # (Auto) Baso # (Auto) Absolute Neuts (auto) Sodium 140 Potassium 4.3 Chloride 109 H Carbon Dioxide 26 Anion Gap 9 L BUN 15 Creatinine 1.4 Est GFR ( Amer) > 60 Est GFR (Non-Af Amer) 51 POC Glucose (mg/dL) 93 Random Glucose 91 Hemoglobin A1c Calcium 9.1 Phosphorus 3.2 Magnesium 2.0 Total Bilirubin 1.3 GGT 32 AST 144 H D ALT 26 Alkaline Phosphatase 80 Troponin I 25.10 H* Total Protein 6.6 Albumin 3.7 Globulin 2.9 Albumin/Globulin Ratio 1.3 Radiology Impressions: Radiology Impressions Renal Ultrasound 08/18/18 21:55 IMPRESSION: Unremarkable renal sonogram. EKG/Cardiology Studies: Cardiology / EKG Studies 08/19/18 04:45 ELECTROCARDIOGRAM DAILY Comment: Reason For Exam: chest pain Critical Care Progress Note - Nutrition Nutrition: Nutrition Category Date Time Status NPO Diet [DIET] Diets 08/19/18 Breakfast Ordered Assessment/Plan - Assessment and Plan (Free Text) Plan: Patient seen and examined on rounds with resident, agree with note with following additions/exceptions: Patient is 63yo male a/w STEMI, s/p PCI to LAD Currently afebrile, HD stable, comfortable in NAD, denies CP, SOB Cont with ASA, Plavix, Statin, BB FS control Check HgbA1C, TSH, Lipid Panel DC IVF GI ppx DVT ppx Stable, transfer to tele
[2018-08-19] MEDS: Insulin Reg-MEDIUM-Coverage SC SCH ×4 (08:30→22:18)
--- NOTE | 2018-08-19 11:30 | PN ---
DATE: 08/19/2018 SUBJECTIVE: The patient was seen lying in bed in the CCU. He is currently comfortable. He denies any chest pain, back pain or dyspnea. His followup troponin this morning was 25.1. His current medications include aspirin, Plavix, subcutaneous heparin, Lipitor 40 mg daily metoprolol 12.5 mg every 12 hours, and Xanax p.r.n. PHYSICAL EXAMINATION: GENERAL: He is a middle-aged man who appears comfortable at rest. VITAL SIGNS: Blood pressure is 114/50 with a pulse of 66 and sinus, respirations are 16. He is afebrile. HEENT: No JVD. CHEST: Few scattered rhonchi. HEART: No pathological gallops noted. ABDOMEN: Soft and nontender with normoactive bowel sounds. EXTREMITIES: Right femoral access site is clean and dry. No evidence of bruit of hematoma. DIAGNOSTIC DATA: Potassium 4.3, BUN and creatinine are 15 and 1.4. White count 9.4, hemoglobin and hematocrit are 13.1 and 38.7 with platelet count 141,000. Troponin 25.1 with a peak of 25.8 yesterday. Electrocardiogram reveals normal sinus rhythm with left ventricular hypertrophy and repolarization abnormalities. A prior anteroseptal myocardial fraction cannot be excluded. IMPRESSION: 1. Status post anterior myocardial fraction, treated with emergency percutaneous coronary intervention of left anterior descending artery. 2. Severe residual right coronary artery disease. 3. History of tobacco abuse. RECOMMENDATIONS Current medications will continue for now. Transfer to telemetry and ambulation is advised. Plans will be made for a staged PCI of his RCA later this week prior to discharge. The need for uninterrupted dual-antiplatelet therapy for least one year was discussed with him as well. Risk factor control and continued smoking abstinence was advised. Lul Cooney MD
--- NOTE | 2018-08-19 11:38 | US ---
Date of service: 08/18/2018 PROCEDURE: Ultrasound of the Kidneys HISTORY: eval IDRIS COMPARISON: None available. TECHNIQUE: Sonogram of the kidneys. FINDINGS: RIGHT KIDNEY: Measures: 8.8 cm. Normal in size, contour and echogenicity. No stone, solid mass lesion or hydronephrosis visualized. LEFT KIDNEY: Measures: 9.1 cm. Normal in size, contour and echogenicity. No stone, solid mass lesion or hydronephrosis visualized. OTHER FINDINGS: None. IMPRESSION: Unremarkable renal sonogram.
--- NOTE | 2018-08-19 12:32 | CP.PCM.PN ---
<Timothy Salgado - Last Filed: 08/19/18 14:45> Subjective - Date & Time of Evaluation Date of Evaluation: 08/19/18 Time of Evaluation: 12:30 - Subjective Subjective: Medicine Progress Note for Dr. Hopson 63M seen and evaluated at bedside this morning. No acute events overnight. Admits to mild chest soreness this morning, but denies tightness or shortness of breath. Denies f/c, n/v/d, or urinary symptoms. Objective - Vital Signs/Intake and Output Vital Signs (last 24 hours): Temp Pulse Resp BP Pulse Ox 99.2 F 66 22 114/48 L 97 08/18/18 16:00 08/19/18 06:10 08/19/18 06:10 08/19/18 06:00 08/19/18 06:10 Intake and Output: 08/19/18 08/19/18 06:59 18:59 Intake Total 0 Balance 0 - Medications Medications: Current Medications Acetaminophen (Tylenol 325mg Tab) 650 mg PO Q6H PRN PRN Reason: Pain, moderate (4-7) Alprazolam (Xanax) 0.25 mg PO BID PRN PRN Reason: Anxiety Stop: 08/25/18 04:44 Aspirin (Ecotrin) 81 mg PO DAILY [facility] Last Admin: 08/19/18 09:26 Dose: 81 mg Atorvastatin Calcium (Lipitor) 40 mg PO DIN [facility] Last Admin: 08/18/18 17:20 Dose: 40 mg Clopidogrel Bisulfate (Plavix) 75 mg PO DAILY [facility] Last Admin: 08/19/18 09:26 Dose: 75 mg Dextrose (Dextrose 50% Inj) 0 ml IV STAT PRN; Protocol PRN Reason: Hypoglycemia Protocol Heparin Sodium (Porcine) (Heparin) 5,000 units SC Q8 [facility]; Protocol Last Admin: 08/19/18 06:34 Dose: 5,000 units Dextrose (Dextrose 5% In Water 1000 Ml) 1,000 mls @ 0 mls/hr IV .Q0M PRN; Protocol PRN Reason: Hypoglycemia Protocol Insulin Human Regular (Humulin R Med) 0 units SC ACHS [facility]; Protocol Last Admin: 08/18/18 23:15 Dose: Not Given Metoprolol Tartrate (Lopressor) 12.5 mg PO Q12H [facility] Last Admin: 08/18/18 17:20 Dose: 12.5 mg Zolpidem Tartrate (Ambien) 5 mg PO HS PRN PRN Reason: Insomnia Last Admin: 08/18/18 21:10 Dose: 5 mg - Labs Labs: 08/19/18 06:30 08/19/18 06:30 APTT 56.0 Seconds (26.9-38.3) H 08/18/18 09:00 - Constitutional Appears: Well, Non-toxic, No Acute Distress - Head Exam Head Exam: ATRAUMATIC, NORMAL INSPECTION, NORMOCEPHALIC - Eye Exam Eye Exam: EOMI - ENT Exam ENT Exam: Mucous Membranes Moist - Respiratory Exam Respiratory Exam: NORMAL BREATHING PATTERN. absent: Wheezes, Respiratory Distress - Cardiovascular Exam Cardiovascular Exam: REGULAR RHYTHM. absent: Tachycardia - GI/Abdominal Exam GI & Abdominal Exam: Soft, Normal Bowel Sounds. absent: Tenderness - Back Exam Back Exam: absent: CVA tenderness (L), CVA tenderness (R) - Neurological Exam Neurological Exam: Alert, Awake, Oriented x3 - Psychiatric Exam Psychiatric exam: Normal Affect, Normal Mood - Skin Skin Exam: Dry, Intact, Normal Color, Warm Assessment and Plan - Assessment and Plan (Free Text) Assessment: 63M estonian speaking, no significant past medical history per patient, admitted with STEMI Plan: STEMI - Elevated troponins: 14.2 to 25.8, now 25.1 - Anterior wall [place] s/p PCI with new drug-eluting stent in the LAD - Continue to monitor catheter site - Per cadiology, will attempt a staged PCI of the RCA during this admission - Continue dual antiplatelet therapy: ASA 81mg QD, Plavix 75mg QD - Lipitor 40mg QD - Lopressor 12.5mg Q12H - Will hold off on FELIPE inhibitor due to low blood pressures - Pending AM EKG read - Cleared for transfer out of ICU to telemetry per cardio Ischemic Cardiomyopathy - ECHO: EF of 30% - Cardiology consulted: pending recommendations regarding lifevest - Pending Physical therapy evaluation Acute Kidney Injury, resolved - Cr 1.4 today - Renal US negative - Bladder US negative for acute pathology - Avoid nephrotoxic drugs - Will monitor and replete electrolytes as needed Transaminitis - Likely secondary to acute cardiac injury - AST: 144, increasing from yesterday - GGT normal - Pending abdominal US: patient NPO for test, resume diet after completion of US - Will continue to monitor Leukocytosis, resolved - WBC 9 from 11.5 - Likely reactive - Urine culture negative - Will continue to monitor PPX GI: Not indicated DVT: Heparin 5000U Q8 Patient care plan reviewed and discussed with Dr. Mark Anthony Salgado PGY1 <Nicholas Hopson - Last Filed: 08/20/18 17:06> Objective - Vital Signs/Intake and Output Vital Signs (last 24 hours): Temp Pulse Resp BP Pulse Ox 99.2 F 62 18 105/52 L 97 08/20/18 12:44 08/20/18 14:00 08/20/18 12:44 08/20/18 12:44 08/20/18 09:00 - Medications Medications: Current Medications Acetaminophen (Tylenol 325mg Tab) 650 mg PO Q6H PRN PRN Reason: Pain, moderate (4-7) Alprazolam (Xanax) 0.25 mg PO BID PRN PRN Reason: Anxiety Stop: 08/25/18 04:44 Aspirin (Ecotrin) 81 mg PO DAILY [facility] Last Admin: 08/20/18 10:59 Dose: 81 mg Atorvastatin Calcium (Lipitor) 40 mg PO DIN [facility] Last Admin: 08/19/18 17:32 Dose: 40 mg Clopidogrel Bisulfate (Plavix) 75 mg PO DAILY [facility] Last Admin: 08/20/18 10:58 Dose: 75 mg Dextrose (Dextrose 50% Inj) 0 ml IV STAT PRN; Protocol PRN Reason: Hypoglycemia Protocol Heparin Sodium (Porcine) (Heparin) 5,000 units SC Q8 [facility]; Protocol Last Admin: 08/20/18 14:00 Dose: 5,000 units Dextrose (Dextrose 5% In Water 1000 Ml) 1,000 mls @ 0 mls/hr IV .Q0M PRN; Protocol PRN Reason: Hypoglycemia Protocol Insulin Human Regular (Humulin R Med) 0 units SC ACHS [facility]; Protocol Last Admin: 08/20/18 16:58 Dose: Not Given Lisinopril (Zestril) 5 mg PO DAILY [facility] Metoprolol Tartrate (Lopressor) 50 mg PO Q12H [facility] Last Admin: 08/20/18 10:58 Dose: 50 mg Zolpidem Tartrate (Ambien) 5 mg PO HS PRN PRN Reason: Insomnia Last Admin: 08/18/18 21:10 Dose: 5 mg - Labs Labs: 08/20/18 06:20 08/20/18 06:20 APTT 56.0 Seconds (26.9-38.3) H 08/18/18 09:00 Attending/Attestation - Attestation I have personally seen and examined this patient.: Yes I have fully participated in the care of the patient.: Yes I have reviewed all pertinent clinical information, including history, physical exam and plan: Yes Notes (Text): 08/20/18 17:04 Patient was seen and examined with medical pathologist. 63 M was admitted with chest pain , found to have Ant wall SEMI,underwent PCI with new drug-eluting stent in the LAD awaiting staged PCI of the RCA this Saturday08/22/18 ECHO: EF of 30%, severe AR, grade II filling dynamics Continue dual antiplatelet therapy: ASA, Plavix , Lipitor , Lopressor and Lisinopril 5mg po qd Stage 3 ckd, Creatinin is stable. Management plan was discussed in detail with patient. Education was provided.
--- NOTE | 2018-08-19 13:27 | US ---
Date of service: 08/18/2018 PROCEDURE: Ultrasound urinary bladder HISTORY: IDRIS, r/o obstruction COMPARISON: Not available TECHNIQUE: Transabdominal FINDINGS: The distended urinary bladder measures 359.9 cc. The wall is smooth. It is not thickened. Bilateral ureteral jets are demonstrated. There is no intraluminal mass. Postvoid, the residual volume is 48.8 cc. The prostate measures 2.7 x 3.7 x 3.2 cm, equal to 16.6 cc volume. IMPRESSION: 48.8 cc postvoid residual.
--- NOTE | 2018-08-19 16:00 | US ---
Date of service: 08/19/2018 HISTORY: transaminitis COMPARISON: None. TECHNIQUE: Sonographic evaluation of the abdomen. FINDINGS: LIVER: Measures 13.9 cm. Normal echogenicity of the liver parenchyma. No mass. No intrahepatic bile duct dilatation. GALLBLADDER: Unremarkable. No gallstones. COMMON BILE DUCT: Measures 3 mm. No stones. No dilatation. PANCREAS: Unremarkable as visualized. No mass. No ductal dilatation. RIGHT KIDNEY: Measures 9.8cm. Normal echogenicity. No calculus, mass, or hydronephrosis. LEFT KIDNEY: Measures 9.9cm. Normal echogenicity. No calculus, mass, or hydronephrosis. SPLEEN: Normal in size and contour. No mass. AORTA: No aneurysmal dilatation. IVC: Unremarkable. OTHER FINDINGS: None. IMPRESSION: Unremarkable abdominal sonogram.
--- NOTE | 2018-08-19 21:07 | CARD ---
APPROVED REPORT Date of service: 08/19/2018 EKG Measurement Heart [id number] <Conclusion> Normal sinus rhythm Possible Left atrial enlargement Left ventricular hypertrophy with repolarization abnormality Cannot rule out Septal infarct, age undetermined Abnormal ECG
[2018-08-20 07:09] LABS: BASO # 0.02 K/mm3 (0.0-2.0); BASO % 0.2 % (0.0-3.0); EOS # 0.1 (0.0-0.7); EOS % 0.7 % (1.5-5.0); HEMOGLOBIN 13.3 g/dL (14.0-18.0); LYMPH # 2.8 (1.2-3.4); LYMPH % 30.1 % (22.0-35.0); MEAN CORPUSCULAR HEMOGLOBIN 28.7 pg (25.0-35.0); MEAN CORPUSCULAR HGB CONC 34.5 g/dl (31.0-37.0); MEAN PLATELET VOLUME 9.9 fl (7.0-11.0); MONO % 11.2 % (1.0-6.0); RBC 4.64 10^6/uL (3.5-6.1); RED CELL DISTRIBUTION WIDTH 13.9 % (11.5-14.5); WHITE BLOOD COUNT 9.2 10^3/uL (4.5-11.0)
[2018-08-20 07:46] LABS: ALB/GLOB RATIO 1.3 (1.1-1.8); ALBUMIN 3.8 g/dL (3.0-4.8); ALT/SGPT 25 U/L (7-56); AST/SGOT 80 U/L (17-59); BLOOD UREA NITROGEN 16 mg/dL (7-21); CALCIUM 9.5 mg/dL (8.4-10.5); GFR NON-AFRICAN AMERICAN 51
[2018-08-20] MEDS: Insulin Reg-MEDIUM-Coverage SC SCH ×4 (08:30→22:03)
--- NOTE | 2018-08-20 13:13 | PN ---
DATE: 08/20/2018 SUBJECTIVE: The patient was seen sitting on bed on telemetry. He is comfortable at the present time. He has had no chest or back pain. He denies any dyspnea. His current medications include aspirin, Plavix, subcutaneous heparin, Lipitor 40 mg daily, metoprolol 25 mg b.i.d., Plavix 75 mg daily, and Xanax p.r.n. OBJECTIVE: GENERAL: He is a middle-aged male who appears comfortable at the present time. VITAL SIGNS: His blood pressure 130/60 with a pulse of 70 in sinus, respirations are 14, he is afebrile. HEENT: No JVD. CHEST: Few scattered rhonchi heard. HEART: PMI displaced laterally. Soft tones noted. ABDOMEN: Soft, nontender with normoactive bowel sounds. EXTREMITIES: No edema. DIAGNOSTIC DATA: Potassium is 4.3, BUN and creatinine are 16 and 1.4. Troponin is 12.3. White count 9.2, hemoglobin and hematocrit 13.3 and 38.5 with platelet count of 145,000. Prior troponin had been 25.1. Electrocardiogram reveals sinus rhythm with LVH with repolarization abnormalities, prior anteroseptal myocardial infarction pattern cannot be excluded. IMPRESSION: 1. Status post acute anterior wall myocardial infarction successfully treated with percutaneous coronary intervention of left anterior descending artery. 2. Severe right coronary artery disease. 3. Left ventricular dysfunction. 4. History of tobacco abuse. RECOMMENDATIONS: His beta-royce dose will be increased to 50 mg twice daily. All FELIPE inhibitor therapy will be added with Zestril 5 mg daily. Increase activity and ambulation is advised. Plans have been made for staged PCI to the RCA to be performed on 08/22/2018. Re-evaluation of his left ventricular function 90 days after revascularization will be planned. The need for smoking abstinence and risk factor control was advised. It was reviewed with him and his sister. Lul Cooney MD
--- NOTE | 2018-08-20 15:31 | CP.PCM.PN ---
<Babatunde Paulson R - Last Filed: 08/20/18 15:25> Subjective - Date & Time of Evaluation Date of Evaluation: 08/20/18 Time of Evaluation: 10:15 - Subjective Subjective: PGY-2 medicine progress note for Dr Hopson No acute events noted overnight. Patient seen with sister at bedside. Denied discomfort or pain. Denied cp, sob, f/c, n/v. Participating in PT. Understands he is to go for PCI this Saturday. Objective - Vital Signs/Intake and Output Vital Signs (last 24 hours): Temp Pulse Resp BP Pulse Ox 99.2 F 62 18 105/52 L 97 08/20/18 12:44 08/20/18 14:00 08/20/18 12:44 08/20/18 12:44 08/20/18 09:00 - Medications Medications: Current Medications Acetaminophen (Tylenol 325mg Tab) 650 mg PO Q6H PRN PRN Reason: Pain, moderate (4-7) Alprazolam (Xanax) 0.25 mg PO BID PRN PRN Reason: Anxiety Stop: 08/25/18 04:44 Aspirin (Ecotrin) 81 mg PO DAILY [facility] Last Admin: 08/20/18 10:59 Dose: 81 mg Atorvastatin Calcium (Lipitor) 40 mg PO DIN [facility] Last Admin: 08/19/18 17:32 Dose: 40 mg Clopidogrel Bisulfate (Plavix) 75 mg PO DAILY [facility] Last Admin: 08/20/18 10:58 Dose: 75 mg Dextrose (Dextrose 50% Inj) 0 ml IV STAT PRN; Protocol PRN Reason: Hypoglycemia Protocol Heparin Sodium (Porcine) (Heparin) 5,000 units SC Q8 [facility]; Protocol Last Admin: 08/20/18 14:00 Dose: 5,000 units Dextrose (Dextrose 5% In Water 1000 Ml) 1,000 mls @ 0 mls/hr IV .Q0M PRN; Protocol PRN Reason: Hypoglycemia Protocol Insulin Human Regular (Humulin R Med) 0 units SC ACHS [facility]; Protocol Last Admin: 08/20/18 12:05 Dose: Not Given Lisinopril (Zestril) 5 mg PO DAILY [facility] Last Admin: 08/20/18 10:59 Dose: 5 mg Metoprolol Tartrate (Lopressor) 50 mg PO Q12H [facility] Last Admin: 08/20/18 10:58 Dose: 50 mg Zolpidem Tartrate (Ambien) 5 mg PO HS PRN PRN Reason: Insomnia Last Admin: 08/18/18 21:10 Dose: 5 mg - Labs Labs: 08/20/18 06:20 08/20/18 06:20 APTT 56.0 Seconds (26.9-38.3) H 08/18/18 09:00 - Additional Findings Additional findings: - Constitutional Appears: Well, Non-toxic, No Acute Distress - Head Exam Head Exam: ATRAUMATIC, NORMAL INSPECTION, NORMOCEPHALIC - Eye Exam Eye Exam: EOMI - ENT Exam ENT Exam: Mucous Membranes Moist - Respiratory Exam Respiratory Exam: NORMAL BREATHING PATTERN. absent: Wheezes, Respiratory Distress - Cardiovascular Exam Cardiovascular Exam: REGULAR RHYTHM. absent: Tachycardia - GI/Abdominal Exam GI & Abdominal Exam: Soft, Normal Bowel Sounds. absent: Tenderness - Back Exam Back Exam: absent: CVA tenderness (L), CVA tenderness (R) - Neurological Exam Neurological Exam: Alert, Awake, Oriented x3 - Psychiatric Exam Psychiatric exam: Normal Affect, Normal Mood - Skin Skin Exam: Dry, Intact, Normal Color, Warm Assessment and Plan - Assessment and Plan (Free Text) Plan: 63M romansh speaking, no significant past medical history per patient, admitted with STEMI Plan: STEMI - Elevated troponins: 14.2 to 25.8, now 25.1 - Anterior wall [place] s/p PCI with new drug-eluting stent in the LAD - Continue to monitor catheter site - Per cadiology, staged PCI of the RCA this Saturday 7:30AM - Continue dual antiplatelet therapy: ASA 81mg QD, Plavix 75mg QD - Lipitor 40mg QD - Lopressor 50mg Q12H as per Dr Cooney - Lisinopril 5mg po qd as per Dr Abbott - Pending AM EKG read - Cleared for transfer out of ICU to telemetry per cardio Ischemic Cardiomyopathy - ECHO: EF of 30%, severe AR, grade II filling dynamics - Cardiology consulted: pending recommendations regarding lifevest - Pending Physical therapy evaluation Acute Kidney Injury, resolved - Cr 1.4 today - Renal US negative - Bladder US negative for acute pathology - Avoid nephrotoxic drugs - Will monitor and replete electrolytes as needed Transaminitis, Improved - Likely secondary to acute cardiac injury - AST mildly elevated but now downtrending - GGT normal - abdominal US: unremarkable - Will continue to monitor Leukocytosis, resolved - WBC 9 from 11.5 - Likely reactive - Urine culture negative - Will continue to monitor PPX GI: Not indicated DVT: Heparin 5000U Q8 Patient care plan reviewed and discussed with Dr. Hopson <Nicholas Hopson - Last Filed: 08/20/18 17:03> Objective - Vital Signs/Intake and Output Vital Signs (last 24 hours): Temp Pulse Resp BP Pulse Ox 99.2 F 62 18 105/52 L 97 08/20/18 12:44 08/20/18 14:00 08/20/18 12:44 08/20/18 12:44 08/20/18 09:00 - Medications Medications: Current Medications Acetaminophen (Tylenol 325mg Tab) 650 mg PO Q6H PRN PRN Reason: Pain, moderate (4-7) Alprazolam (Xanax) 0.25 mg PO BID PRN PRN Reason: Anxiety Stop: 08/25/18 04:44 Aspirin (Ecotrin) 81 mg PO DAILY [facility] Last Admin: 08/20/18 10:59 Dose: 81 mg Atorvastatin Calcium (Lipitor) 40 mg PO DIN [facility] Last Admin: 08/19/18 17:32 Dose: 40 mg Clopidogrel Bisulfate (Plavix) 75 mg PO DAILY [facility] Last Admin: 08/20/18 10:58 Dose: 75 mg Dextrose (Dextrose 50% Inj) 0 ml IV STAT PRN; Protocol PRN Reason: Hypoglycemia Protocol Heparin Sodium (Porcine) (Heparin) 5,000 units SC Q8 [facility]; Protocol Last Admin: 08/20/18 14:00 Dose: 5,000 units Dextrose (Dextrose 5% In Water 1000 Ml) 1,000 mls @ 0 mls/hr IV .Q0M PRN; Protocol PRN Reason: Hypoglycemia Protocol Insulin Human Regular (Humulin R Med) 0 units SC ACHS [facility]; Protocol Last Admin: 08/20/18 16:58 Dose: Not Given Lisinopril (Zestril) 5 mg PO DAILY [facility] Metoprolol Tartrate (Lopressor) 50 mg PO Q12H [facility] Last Admin: 08/20/18 10:58 Dose: 50 mg Zolpidem Tartrate (Ambien) 5 mg PO HS PRN PRN Reason: Insomnia Last Admin: 08/18/18 21:10 Dose: 5 mg - Labs Labs: 08/20/18 06:20 08/20/18 06:20 APTT 56.0 Seconds (26.9-38.3) H 08/18/18 09:00 Attending/Attestation - Attestation I have personally seen and examined this patient.: Yes I have fully participated in the care of the patient.: Yes I have reviewed all pertinent clinical information, including history, physical exam and plan: Yes Notes (Text): 08/20/18 16:59 Patient was seen and examined with certified medical coding specialist. 63 M was admitted with Ant wall SEMI,s/p PCI with new drug-eluting stent in the LAD awaiting staged PCI of the RCA this Saturday08/22/18 ECHO: EF of 30%, severe AR, grade II filling dynamics Continue dual antiplatelet therapy: ASA 81mg QD, Plavix 75mg QD Lipitor 40mg QD, Lopressor 50mg Q12H and Lisinopril 5mg po qd Management plan was discussed in detail with patient. Education was provided.
[2018-08-21 07:04] LABS: BASO # 0.02 K/mm3 (0.0-2.0); BASO % 0.2 % (0.0-3.0); EOS # 0.1 (0.0-0.7); EOS % 1.3 % (1.5-5.0); HEMOGLOBIN 13.1 g/dL (14.0-18.0); LYMPH # 2.6 (1.2-3.4); LYMPH % 29.6 % (22.0-35.0); MEAN CELL VOLUME 82.7 fl (80.0-105.0); MEAN CORPUSCULAR HEMOGLOBIN 28.7 pg (25.0-35.0); MEAN CORPUSCULAR HGB CONC 34.7 g/dl (31.0-37.0); MEAN PLATELET VOLUME 9.8 fl (7.0-11.0); RBC 4.57 10^6/uL (3.5-6.1); RED CELL DISTRIBUTION WIDTH 13.6 % (11.5-14.5); WHITE BLOOD COUNT 8.9 10^3/uL (4.5-11.0)
[2018-08-21 07:25] LABS: ALB/GLOB RATIO 1.3 (1.1-1.8); ALBUMIN 3.8 g/dL (3.0-4.8); CALCIUM 9.5 mg/dL (8.4-10.5)
--- NOTE | 2018-08-21 07:49 | CP.PCM.PN ---
<KirkcarriTimothy - Last Filed: 08/21/18 13:13> Subjective - Date & Time of Evaluation Date of Evaluation: 08/21/18 Time of Evaluation: 07:43 - Subjective Subjective: Medicine Progress Note for Dr. Hopson 63M seen and evaluated at bedside this morning. No acute events overnight. Patient denies any chest pain or shortness of breath. He is able to ambulate. Voiding freely. Denies f/c, n/v/d, SOB, CP, or urinary symptoms. Objective - Vital Signs/Intake and Output Vital Signs (last 24 hours): Temp Pulse Resp BP Pulse Ox 98.7 F 60 17 94/47 L 97 08/21/18 06:00 08/21/18 06:00 08/21/18 06:00 08/21/18 06:00 08/21/18 06:00 Intake and Output: 08/21/18 08/21/18 06:59 18:59 Intake Total 120 Output Total 350 Balance -230 - Medications Medications: Current Medications Acetaminophen (Tylenol 325mg Tab) 650 mg PO Q6H PRN PRN Reason: Pain, moderate (4-7) Alprazolam (Xanax) 0.25 mg PO BID PRN PRN Reason: Anxiety Stop: 08/25/18 04:44 Aspirin (Ecotrin) 81 mg PO DAILY [facility] Last Admin: 08/20/18 10:59 Dose: 81 mg Atorvastatin Calcium (Lipitor) 40 mg PO DIN [facility] Last Admin: 08/20/18 17:35 Dose: 40 mg Clopidogrel Bisulfate (Plavix) 75 mg PO DAILY [facility] Last Admin: 08/20/18 10:58 Dose: 75 mg Dextrose (Dextrose 50% Inj) 0 ml IV STAT PRN; Protocol PRN Reason: Hypoglycemia Protocol Heparin Sodium (Porcine) (Heparin) 5,000 units SC Q8 [facility]; Protocol Last Admin: 08/21/18 05:27 Dose: 5,000 units Dextrose (Dextrose 5% In Water 1000 Ml) 1,000 mls @ 0 mls/hr IV .Q0M PRN; Protocol PRN Reason: Hypoglycemia Protocol Insulin Human Regular (Humulin R Med) 0 units SC ACHS [facility]; Protocol Last Admin: 08/20/18 22:03 Dose: Not Given Lisinopril (Zestril) 5 mg PO DAILY [facility] Metoprolol Tartrate (Lopressor) 50 mg PO Q12H [facility] Last Admin: 08/20/18 22:05 Dose: 50 mg Zolpidem Tartrate (Ambien) 5 mg PO HS PRN PRN Reason: Insomnia Last Admin: 08/18/18 21:10 Dose: 5 mg - Labs Labs: 08/21/18 06:45 08/21/18 06:45 APTT 56.0 Seconds (26.9-38.3) H 08/18/18 09:00 - Constitutional Appears: Well, Non-toxic, No Acute Distress - Head Exam Head Exam: ATRAUMATIC, NORMAL INSPECTION, NORMOCEPHALIC - Eye Exam Eye Exam: EOMI - ENT Exam ENT Exam: Mucous Membranes Moist - Respiratory Exam Respiratory Exam: Clear to Ausculation Bilateral, NORMAL BREATHING PATTERN. absent: Respiratory Distress - Cardiovascular Exam Cardiovascular Exam: REGULAR RHYTHM. absent: Tachycardia - GI/Abdominal Exam GI & Abdominal Exam: Soft, Normal Bowel Sounds. absent: Tenderness - Neurological Exam Neurological Exam: Alert, Awake, Oriented x3 - Psychiatric Exam Psychiatric exam: Normal Affect, Normal Mood - Skin Skin Exam: Dry, Intact, Normal Color, Warm Assessment and Plan - Assessment and Plan (Free Text) Assessment: 63M nepali speaking, no significant past medical history per patient, admitted with STEMI. Pending PCI this Saturday. Plan: STEMI - Elevated troponins: 14.2 to 25.8, now 12.3 - Anterior wall [place] s/p PCI with new drug-eluting stent in the LAD - Per cadiology, staged PCI of the RCA this Saturday 7:30AM; NPO past midnight - Continue dual antiplatelet therapy: ASA 81mg QD, Plavix 75mg QD - Lipitor 40mg QD - Lopressor 50mg Q12H as per Dr Cooney - Lisinopril 5mg po qd as per Dr Abbott - Monitor on telemetry - Heart healthy diet Ischemic Cardiomyopathy - ECHO: EF of 30%, severe AR, grade II filling dynamics - Cardiology consulted: pending recommendations regarding lifevest - Physical Therapy: Outpatient cardiac rehab, home w/ services Acute Kidney Injury, resolved - Cr 1.5 today - Renal US negative - Bladder US negative for acute pathology - Avoid nephrotoxic drugs - Will monitor and replete electrolytes as needed Transaminitis, resolved - Likely secondary to acute cardiac injury - AST wnl today - GGT normal - abdominal US: unremarkable - Will continue to monitor Leukocytosis, resolved - WBC wnl - Likely reactive - Urine culture negative - Will continue to monitor PPX GI: Not indicated DVT: Heparin 5000U Q8 Dispo: Pending PCI with Dr. Cooney this Saturday Patient care plan reviewed and discussed with Dr. Mark Anthony Salgado PGY1 <Nicholas Hopson - Last Filed: 08/21/18 14:30> Objective - Vital Signs/Intake and Output Vital Signs (last 24 hours): Temp Pulse Resp BP Pulse Ox 98.7 F 89 17 107/61 97 08/21/18 06:00 08/21/18 10:00 08/21/18 06:00 08/21/18 09:02 08/21/18 06:00 Intake and Output: 08/21/18 08/21/18 06:59 18:59 Intake Total 120 Output Total 350 Balance -230 - Medications Medications: Current Medications Acetaminophen (Tylenol 325mg Tab) 650 mg PO Q6H PRN PRN Reason: Pain, moderate (4-7) Alprazolam (Xanax) 0.25 mg PO BID PRN PRN Reason: Anxiety Stop: 08/25/18 04:44 Aspirin (Ecotrin) 81 mg PO DAILY [facility] Last Admin: 08/21/18 09:01 Dose: 81 mg Atorvastatin Calcium (Lipitor) 40 mg PO DIN [facility] Last Admin: 08/20/18 17:35 Dose: 40 mg Clopidogrel Bisulfate (Plavix) 75 mg PO DAILY [facility] Last Admin: 08/21/18 09:01 Dose: 75 mg Dextrose (Dextrose 50% Inj) 0 ml IV STAT PRN; Protocol PRN Reason: Hypoglycemia Protocol Heparin Sodium (Porcine) (Heparin) 5,000 units SC Q8 [facility]; Protocol Last Admin: 08/21/18 05:27 Dose: 5,000 units Dextrose (Dextrose 5% In Water 1000 Ml) 1,000 mls @ 0 mls/hr IV .Q0M PRN; Protocol PRN Reason: Hypoglycemia Protocol Insulin Human Regular (Humulin R Med) 0 units SC ACHS [facility]; Protocol Last Admin: 08/21/18 11:49 Dose: Not Given Lisinopril (Zestril) 2.5 mg PO DAILY [facility] Metoprolol Tartrate (Lopressor) 50 mg PO Q12H [facility] Last Admin: 08/21/18 09:01 Dose: 50 mg Zolpidem Tartrate (Ambien) 5 mg PO HS PRN PRN Reason: Insomnia Last Admin: 08/18/18 21:10 Dose: 5 mg - Labs Labs: 08/21/18 06:45 08/21/18 06:45 APTT 56.0 Seconds (26.9-38.3) H 08/18/18 09:00 Attending/Attestation - Attestation I have personally seen and examined this patient.: Yes I have fully participated in the care of the patient.: Yes I have reviewed all pertinent clinical information, including history, physical exam and plan: Yes Notes (Text): 08/21/18 14:27 Patient was seen and examined with medical health researcher. 63 years old male with no significant PMH was admitted with Ant wall SEMI, He is SP PCI with new drug-eluting stent in the LAD Scheduled for staged PCI of the RCA this Saturday08/22/18 ECHO showed EF of 30%, severe AR, grade II diastolic dysfunction. Continue dual antiplatelet therapy: ASA 81mg QD, Plavix 75mg QD Lipitor 40mg QD, Lopressor 50mg Q12H and Lisinopril 5mg po qd Blood pressure is stable. Renal functions are stable. Management plan was discussed in detail with patient. Education was provided.
[2018-08-21] MEDS: Insulin Reg-MEDIUM-Coverage SC SCH ×4 (08:49→23:40)
--- NOTE | 2018-08-22 01:27 | PN ---
DATE: 08/21/2018 SUBJECTIVE: The patient was seen lying in bed, on telemetry. He is comfortable at the present time. He denies any chest pain or dyspnea. He is tolerating his current medications. Those include aspirin, Plavix, subcutaneous heparin, Lipitor 40 mg daily, metoprolol 50 mg every 12 hours, Xanax, and Zestril 2.5 mg daily. OBJECTIVE: GENERAL: He is a middle age male who appears comfortable at rest. VITAL SIGNS: Blood pressure is 120/60 with a pulse of 60 and sinus, respirations are 14. He is afebrile. HEENT: No JVD. CHEST: He has scattered rhonchi. HEART: Normal, first and second sounds. No pathological gallops noted. ABDOMEN: Soft, nontender, normoactive bowel sounds. EXTREMITIES: No edema. DIAGNOSTIC DATA: Potassium 4.7, BUN and creatinine are 18 and 1.5. White count 8.9, hemoglobin and hematocrit are 13 and 37.8 with platelet count of 155,000. IMPRESSION: 1. Recent acute anterior myocardial infarction, treated with percutaneous coronary intervention of left anterior descending artery, clinically stable. 2. Severe right coronary artery disease. 3. Left ventricular dysfunction. 4. History of tobacco abuse. RECOMMENDATION: The patient will undergo staged PCI of his RCA in the morning. His current medications will continue. Eventual reevaluation of his left ventricular function in 90 days will be planned if his ejection fraction remains below 35% and possible prophylactic ICD will need to be discussed. Lul Cooney MD MTDD
[2018-08-22 06:32] LABS: BASO # 0.01 K/mm3 (0.0-2.0); BASO % 0.1 % (0.0-3.0); EOS # 0.1 (0.0-0.7); EOS % 1.6 % (1.5-5.0); HEMOGLOBIN 12.8 g/dL (14.0-18.0); LYMPH # 3.1 (1.2-3.4); LYMPH % 34.7 % (22.0-35.0); MEAN CELL VOLUME 83.7 fl (80.0-105.0); MEAN CORPUSCULAR HEMOGLOBIN 28.5 pg (25.0-35.0); MONO # 0.9 (0.1-0.6); MONO % 10.3 % (1.0-6.0); RBC 4.49 10^6/uL (3.5-6.1); RED CELL DISTRIBUTION WIDTH 13.6 % (11.5-14.5)
[2018-08-22 06:57] LABS: ALB/GLOB RATIO 1.1 (1.1-1.8); ALBUMIN 3.7 g/dL (3.0-4.8); CALCIUM 9.4 mg/dL (8.4-10.5)
[2018-08-22] MEDS ORDERED: Midazolam 2 MG/2 ML VIAL ONE (07:51)
--- NOTE | 2018-08-22 07:55 | CP.PCM.PN ---
Subjective - Date & Time of Evaluation Date of Evaluation: 08/22/18 Time of Evaluation: 07:48 - Subjective Subjective: Medicine Progress Note for Dr. Maicol WongM seen and evaluated at bedside this morning. No acute events overnight. Patient's sister at bedside and states he coughed up a small blood clot minutes after taking a pill by mouth. This has never happened before. Patient is a current smoker. Denies f/c, n/v/d, SOB, CP, abdominal pain, further episodes of hemoptysis, bloody bowel movements, or urinary symptoms. Objective - Vital Signs/Intake and Output Vital Signs (last 24 hours): Temp Pulse Resp BP Pulse Ox 97.8 F 66 18 108/57 L 97 08/22/18 06:00 08/22/18 06:00 08/22/18 06:00 08/22/18 06:00 08/21/18 06:00 Intake and Output: 08/22/18 08/22/18 06:59 18:59 Intake Total 1310 Balance 1310 - Medications Medications: Current Medications Acetaminophen (Tylenol 325mg Tab) 650 mg PO Q6H PRN PRN Reason: Pain, moderate (4-7) Alprazolam (Xanax) 0.25 mg PO BID PRN PRN Reason: Anxiety Stop: 08/25/18 04:44 Aspirin (Ecotrin) 81 mg PO DAILY [facility] Last Admin: 08/22/18 07:08 Dose: 81 mg Atorvastatin Calcium (Lipitor) 40 mg PO DIN [facility] Last Admin: 08/21/18 17:06 Dose: 40 mg Clopidogrel Bisulfate (Plavix) 75 mg PO DAILY [facility] Last Admin: 08/22/18 07:08 Dose: 75 mg Dextrose (Dextrose 50% Inj) 0 ml IV STAT PRN; Protocol PRN Reason: Hypoglycemia Protocol Heparin Sodium (Porcine) (Heparin) 5,000 units SC Q8 [facility]; Protocol Last Admin: 08/22/18 05:55 Dose: 5,000 units Dextrose (Dextrose 5% In Water 1000 Ml) 1,000 mls @ 0 mls/hr IV .Q0M PRN; Protocol PRN Reason: Hypoglycemia Protocol Insulin Human Regular (Humulin R Med) 0 units SC ACHS [facility]; Protocol Last Admin: 08/21/18 23:40 Dose: Not Given Lisinopril (Zestril) 2.5 mg PO DAILY [facility] Metoprolol Tartrate (Lopressor) 50 mg PO Q12H [facility] Last Admin: 08/21/18 22:12 Dose: 50 mg Zolpidem Tartrate (Ambien) 5 mg PO HS PRN PRN Reason: Insomnia Last Admin: 08/21/18 22:13 Dose: 5 mg - Labs Labs: 08/22/18 06:00 08/22/18 06:00 APTT 56.0 Seconds (26.9-38.3) H 08/18/18 09:00 - Constitutional Appears: Well, Non-toxic, No Acute Distress - Head Exam Head Exam: ATRAUMATIC, NORMAL INSPECTION, NORMOCEPHALIC - Eye Exam Eye Exam: EOMI - ENT Exam ENT Exam: Mucous Membranes Moist - Respiratory Exam Respiratory Exam: NORMAL BREATHING PATTERN. absent: Accessory Muscle Use, Wheezes, Respiratory Distress - Cardiovascular Exam Cardiovascular Exam: REGULAR RHYTHM. absent: Tachycardia - GI/Abdominal Exam GI & Abdominal Exam: Soft, Normal Bowel Sounds. absent: Tenderness - Neurological Exam Neurological Exam: Alert, Awake, Oriented x3 - Psychiatric Exam Psychiatric exam: Normal Affect, Normal Mood - Skin Skin Exam: Dry, Intact, Normal Color, Warm Assessment and Plan - Assessment and Plan (Free Text) Assessment: 63M nigerien speaking, no significant past medical history per patient, admitted with STEMI. Pending staged PCI today. Plan: STEMI - Downtrending troponins: 14.2 to 25.8, now 12.3 - Anterior wall MS s/p PCI with new drug-eluting stent in the LAD - Per cadiology, staged PCI of the RCA with new drug-eluting stent - Monitor catheter site - Continue dual antiplatelet therapy: ASA 81mg QD, Plavix 75mg QD - Lipitor 40mg QD - Lopressor 50mg Q12H as per Dr Cooney - Lisinopril 5mg po qd as per Dr Abbott - Monitor on telemetry - Heart healthy diet Ischemic Cardiomyopathy - ECHO: EF of 30%, severe AR, grade II filling dynamics - Cardiology consulted: if repeat ECHO in 90 days shows EF<30%, will discuss ICD placement - Physical Therapy: Outpatient cardiac rehab, home w/ services Acute Kidney Injury - Cr 1.8 today - NS@100 - Renal US negative - Bladder US negative for acute pathology - Avoid nephrotoxic drugs - Will monitor and replete electrolytes as needed Hemoptysis - 1 episode of coughing up small clot this morning - CXR on admission showed no active disease - PTT elevated 2/2 cardiac cath procedure - Recommend outpatient CT - Smoking cessation advised - Will continue to monitor Transaminitis, resolved - Likely secondary to acute cardiac injury - AST wnl today - GGT normal - abdominal US: unremarkable - Will continue to monitor Leukocytosis, resolved - WBC wnl - Likely reactive - Urine culture negative - Will continue to monitor PPX GI: Not indicated DVT: Heparin 5000U Q8 Dispo: DC planning Patient care plan reviewed and discussed with Dr. Mark Anthony Salgado PGY1
[2018-08-22] MEDS ORDERED: Sodium Chloride 0.9% 1,000 ML IV SCH ×2 (08:00→08:18)
[2018-08-22] MEDS ORDERED: Lidocaine PF 2% (5 ml) Inj (For Cardiac Arrhy) ONE (08:16)
[2018-08-22] MEDS ORDERED: Iohexol 350mgl/ml 50 ML ONE (08:16)
[2018-08-22] MEDS ORDERED: Iodixanol 320 MG/ML 200 ML BOTTLE IV ONE (08:16)
[2018-08-22] MEDS: Insulin Reg-MEDIUM-Coverage SC SCH ×4 (09:49→21:28)
[2018-08-22 10:00] LABS: INR 1.2; PROTHROMBIN TIME 13.6 SECONDS (9.4-12.5)
[2018-08-22 10:09] LABS: PARTIAL THROMBOPLASTIN TIME 177.9 Seconds (26.9-38.3)
--- NOTE | 2018-08-22 11:12 | PN ---
DATE: 08/22/2018 SUBJECTIVE: The patient is seen lying in bed on telemetry. He is currently comfortable. He denies any chest pain or dyspnea. He is scheduled for a PCI of his RCA later today. CURRENT MEDICATIONS: Include Ecotrin, Plavix, Lipitor, metoprolol 50 mg every 12 hours, Xanax and Zestril 2.5 mg daily. OBJECTIVE: GENERAL: He is a middle-aged man who is comfortable at the present time. VITAL SIGNS: Blood pressure is 110/60 with a pulse of 66, respirations are 16. He is afebrile. HEENT: No JVD. CHEST: Few scattered rhonchi heard. HEART: No pathologic murmurs or gallops noted. ABDOMEN: Soft, nontender with normoactive bowel sounds. EXTREMITIES: No edema. DIAGNOSTIC DATA: Potassium is 4.6. BUN and creatinine 26 and 1.8. White count 9.0, hemoglobin and hematocrit 12.8 and 37.6 with platelet count of 179,000. IMPRESSION: 1. Recent anterior wall myocardial fraction treated with emergency percutaneous coronary intervention of left anterior descending. 2. Severe residual right coronary artery disease. 3. History of tobacco abuse. RECOMMENDATIONS: The patient will undergo a PCI of his RCA later this morning. IV hydration will be instituted given his mild increase in his creatinine. This will need to be monitored. The rest of his medications will continue unchanged. Reassessment of his left ventricular function in 90 days will be planned. Further recommendation will be based upon his clinical course. Lul Cooney MD
--- NOTE | 2018-08-22 13:12 | CARDCATH ---
PROCEDURE DATE: 08/22/2018 PROCEDURES: 1. Selective right coronary angiography. 2. Percutaneous coronary intervention of proximal right coronary artery with drug-eluting stent. 3. Left femoral arteriography. 4. Angio-Seal deployment. HISTORY: This is a 63-year-old male with known coronary artery disease, status post recent anterior myocardial infarction and emergency PCI of his LAD, brought back now staged PCI with RCA. INDICATION: Severe coronary artery disease. FINDINGS: HEMODYNAMICS: The aortic pressure was 100/70. Left ventricular pressure was not measured. CORONARY ANATOMY: A 6-Spanish JR4 guide catheter with side holes was utilized to engage right coronary artery. There was a moderately complex stenosis present in the proximal RCA of 95% severity. A 4000 units of intravenous heparin was administered and ACT was greater than 280 seconds during the procedure. The lesion was successfully crossed with the use of a Penelope wire. Following this, the lesion was then dilated with the use of 2.0 x 12 mm balloon. Two inflations were performed to 8 atmospheres for 30 seconds. The balloon was then withdrawn and the 2.5 x 18 mm [place] drug-eluting stent was advanced in position under fluoroscopic guidance and inflated to 14 atmospheres in the mid body of lesion. The stent balloon was then removed. A 2.75 x 15 mm Trek noncompliant balloon was then advanced and 2 inflations were then performed within the stented segment up to 18 atmosphere with 30 seconds each. There was 0% residual stenosis following the intervention. BRITTANI grade 3 flow was present before and after the procedure. LEFT FEMORAL ARTERIOGRAPHY: A left femoral arteriogram was performed in the SCOT projection. This revealed evidence of mild diffuse atherosclerotic disease with appropriate level of arterial puncture. The puncture site was then closed with deployment of an Angio-Seal device. CONCLUSION: Successful PCI of severe proximal RCA stenosis with drug eluting stent. RECOMMENDATIONS: Given the above findings, the aspirin and Plavix therapy will be continued for one year. Aggressive risk factor control was advised. Smoking abstinence was strongly encouraged. Lul Cooney MD [facility] CENTERRadha
--- NOTE | 2018-08-22 22:22 | CARD ---
APPROVED REPORT Date of service: 08/22/2018 EKG Measurement Heart [id number] <Conclusion> Sinus bradycardia Left ventricular hypertrophy with QRS widening and repolarization abnormality Abnormal ECG
[2018-08-22 23:30] VITALS: O2SAT 96
[2018-08-23] MEDS: Insulin Reg-MEDIUM-Coverage SC SCH ×2 (07:30→12:12)
[2018-08-23 08:02] LABS: BASO # 0.02 K/mm3 (0.0-2.0); BASO % 0.3 % (0.0-3.0); EOS # 0.1 (0.0-0.7); EOS % 1.7 % (1.5-5.0); HEMOGLOBIN 12.9 g/dL (14.0-18.0); LYMPH # 2.3 (1.2-3.4); LYMPH % 29.3 % (22.0-35.0); MEAN CORPUSCULAR HEMOGLOBIN 28.8 pg (25.0-35.0); MEAN CORPUSCULAR HGB CONC 33.9 g/dl (31.0-37.0); MEAN PLATELET VOLUME 9.8 fl (7.0-11.0); MONO % 12.2 % (1.0-6.0); RBC 4.48 10^6/uL (3.5-6.1); RED CELL DISTRIBUTION WIDTH 13.4 % (11.5-14.5); WHITE BLOOD COUNT 7.8 10^3/uL (4.5-11.0)
[2018-08-23 09:04] LABS: BLOOD UREA NITROGEN 20 mg/dL (7-21); CALCIUM 9.5 mg/dL (8.4-10.5); GFR NON-AFRICAN AMERICAN 51
--- NOTE | 2018-08-23 09:58 | PN ---
DATE: 08/23/2018 SUBJECTIVE: The patient is seen lying in bed on telemetry. He is comfortable at the present time. He has had no chest pain or dyspnea. He underwent successful PCI of his RCA yesterday. Morning labs are pending. His current medications include aspirin, Lipitor, metoprolol, Plavix, and Zestril. OBJECTIVE: GENERAL: He is a middle-aged man who is comfortable at the present time. VITAL SIGNS: His blood pressure is 144/60, pulse 66 and sinus, respirations 14. He is afebrile. HEENT: No JVD. CHEST: Few scattered rhonchi heard. HEART: No pathological gallops noted. ABDOMEN: Soft, nontender with bowel sounds. EXTREMITIES: No edema. Left groin is clean and dry with no evidence of hematoma. IMPRESSION: 1. Recent anterior myocardial infarction, treated with emergency percutaneous coronary intervention of left anterior descending artery. 2. Status post percutaneous coronary intervention of severe right coronary artery lesion as well. 3. History of tobacco abuse. 4. Renal insufficiency. RECOMMENDATIONS: Morning blood work will be reviewed. Assuming his creatinine remains unchanged, discharge home at this time would be appropriate. Gradual increase in his FELIPE inhibitor dose is advised for blood pressure control. She was cautioned to refrain from all tobacco abuse. The need for uninterrupted aspirin, Plavix therapy was discussed with him as well as his when seen yesterday following the procedure. Outpatient followup will be arranged. Lul Cooney MD
[2018-08-23 12:17] VITALS: RESP 19; TEMP 98.4
--- NOTE | 2018-08-23 13:19 | CP.PCM.DIS ---
<Minerva Whitehead - Last Filed: 08/23/18 13:13> Provider - Provider Date of Admission: 08/18/18 05:07 Attending physician: Nicholas Hopson MD Consults: 08/17/18 21:55 Cardiology Consult Routine Comment: Consulting Provider: Lul Cooney Consulting Physician: Lul Cooney Reason for Consult: r/o ACS Time Spent in preparation of Discharge (in minutes): 45 Hospital Course - Lab Results Lab Results: Micro Results 08/18/18 05:00 Nose MRSA Culture (Admit) - Final MRSA NOT DETECTED 08/17/18 22:21 Urine,Clean Catch Urine Culture - Final No Growth (<1,000 CFU/ML) Most Recent Lab Values WBC 7.8 10^3/uL (4.5-11.0) 08/23/18 07:30 RBC 4.48 10^6/uL (3.5-6.1) 08/23/18 07:30 Hgb 12.9 g/dL (14.0-18.0) L 08/23/18 07:30 Hct 38.1 % (42.0-52.0) L 08/23/18 07:30 MCV 85.0 fl (80.0-105.0) 08/23/18 07:30 MCH 28.8 pg (25.0-35.0) 08/23/18 07:30 MCHC 33.9 g/dl (31.0-37.0) 08/23/18 07:30 RDW 13.4 % (11.5-14.5) 08/23/18 07:30 Plt Count 171 10^3/uL (120.0-450.0) 08/23/18 07:30 MPV 9.8 fl (7.0-11.0) 08/23/18 07:30 Neut % (Auto) 56.5 % (50.0-68.0) 08/23/18 07:30 Lymph % (Auto) 29.3 % (22.0-35.0) 08/23/18 07:30 Crowley % (Auto) 12.2 % (1.0-6.0) H 08/23/18 07:30 Eos % (Auto) 1.7 % (1.5-5.0) 08/23/18 07:30 Baso % (Auto) 0.3 % (0.0-3.0) 08/23/18 07:30 Lymph # (Auto) 2.3 (1.2-3.4) 08/23/18 07:30 Crowley # (Auto) 1.0 (0.1-0.6) H 08/23/18 07:30 Eos # (Auto) 0.1 (0.0-0.7) 08/23/18 07:30 Baso # (Auto) 0.02 K/mm3 (0.0-2.0) 08/23/18 07:30 Absolute Neuts (auto) 4.41 (1.4-6.5) 08/23/18 07:30 PT 13.6 SECONDS (9.4-12.5) H 08/22/18 09:20 INR 1.20 08/22/18 09:20 APTT 177.9 Seconds (26.9-38.3) H* 08/22/18 09:20 D-Dimer, Quantitative 196 ng/mlDDU (0-243) 08/17/18 19:00 Sodium 138 mmol/L (132-148) 08/23/18 07:30 Potassium 4.6 mmol/L (3.6-5.0) 08/23/18 07:30 Chloride 107 mmol/L (98-107) 08/23/18 07:30 Carbon Dioxide 25 mmol/L (21-33) 08/23/18 07:30 Anion Gap 11 (10-20) 08/23/18 07:30 BUN 20 mg/dL (7-21) 08/23/18 07:30 Creatinine 1.4 mg/dl (0.8-1.5) 08/23/18 07:30 Est GFR ( Amer) > 60 08/23/18 07:30 Est GFR (Non-Af Amer) 51 08/23/18 07:30 POC Glucose (mg/dL) 116 mg/dL (65-110) H 08/23/18 11:38 Random Glucose 88 mg/dL (70-110) 08/23/18 07:30 Hemoglobin A1c 5.4 % (4.2-6.5) 08/17/18 19:00 Calcium 9.5 mg/dL (8.4-10.5) 08/23/18 07:30 Phosphorus 4.2 mg/dL (2.5-4.5) 08/22/18 06:00 Magnesium 2.3 mg/dL (1.7-2.2) H 08/22/18 06:00 Total Bilirubin 0.7 mg/dL (0.2-1.3) 08/22/18 06:00 GGT 32 U/L (8-78) 08/19/18 09:39 AST 49 U/L (17-59) 08/22/18 06:00 ALT 26 U/L (7-56) 08/22/18 06:00 Alkaline Phosphatase 83 U/L (38-126) 08/22/18 06:00 Lactate Dehydrogenase 800 U/L (333-699) H 08/18/18 09:00 Total Creatine Kinase 773 U/L (35-230) H 08/18/18 09:00 CK-MB (CK-2) 80.5 ng/mL (0.0-3.6) H 08/18/18 09:00 CK-MB (CK-2) % 10.4 % (2.5-3.0) H 08/18/18 09:00 Troponin I 12.30 ng/mL H* D 08/20/18 06:20 NT-Pro-B Natriuret Pep 1160 pg/mL (0-450) H 08/17/18 19:00 Total Protein 7.0 g/dL (5.8-8.3) 08/22/18 06:00 Albumin 3.7 g/dL (3.0-4.8) 08/22/18 06:00 Globulin 3.3 gm/dL 08/22/18 06:00 Albumin/Globulin Ratio 1.1 (1.1-1.8) 08/22/18 06:00 Triglycerides 323 mg/dL (35-160) H 08/17/18 19:00 Cholesterol 216 mg/dL (130-200) H 08/17/18 19:00 LDL Cholesterol Direct 122 mg/dL (0-129) 08/17/18 19:00 HDL Cholesterol 39 mg/dL (29-60) 08/17/18 19:00 Free T4 1.02 ng/dL (0.78-2.19) 08/17/18 19:00 TSH 3rd Generation 2.36 mIU/mL (0.46-4.68) 08/17/18 19:00 Urine Color Yellow (YELLOW) 08/17/18 22:21 Urine Appearance Clear (CLEAR) 08/17/18 22:21 Urine pH 6.5 (4.7-8.0) 08/17/18 22:21 Ur Specific [place] 1.010 (1.005-1.035) 08/17/18 22:21 Urine Protein Negative mg/dL (<30 mg/dL) 08/17/18 22:21 Urine Glucose (UA) Negative mg/dL (NEGATIVE) 08/17/18 22:21 Urine Ketones Negative mg/dL (NEGATIVE) 08/17/18 22:21 Urine Blood Negative (NEGATIVE) 08/17/18 22:21 Urine Nitrate Negative (NEGATIVE) 08/17/18 22:21 Urine Bilirubin Negative (NEGATIVE) 08/17/18 22:21 Urine Urobilinogen 0.2 E.U./dL (<1 E.U./dL) 08/17/18 22:21 Ur Leukocyte Esterase Negative Anam/uL (NEGATIVE) 08/17/18 22:21 - Hospital Course Hospital Course: Upon Admission: 63 year old Urdu speaking male with no known past medical history presenting with chief complaint of shortness of breath which has been progressively worsening over the past four months. Patient's dyspnea worsens with exertion and he is now only able to walk one block due to the severity of his symptoms. Patient previously smoked 1 pack every two days for the past 25 years and quit when he started developing symptoms. Patient denies ever following up with a primary medical doctor and has never taken medications Hospital Course: Patient was admitted to floor for presentation of progressively worsening shortness of breath with exertion. Since admission, labs were notable for hyperlipidemia and BP suggestive of HTN. Initial trop on admission was 0.03, but repeat trop with elevation to 14.2. EKG revealed new ST-elevations in V2 and V3. Ebd Teacher Dr. Cooney, called emergently and code heart activated for emergent DIRECTOR OF REHABILITATION. Pt underwent cardiac cath revealing anterior wall myocardial infarction d/t proximal LAD disease, severe RCA disease and reduced LV function. Pt underwent successful PCI of LAD with NANCY. Pt was monitored in CCU post cath. Hospital course complicated by IDRIS and transaminitis, likely 2/2 AMI & contrast induced nephropathy. Post void bladder u/s was normal, renal sonogram was unremarkable, and abdomen sonogram were unremarkable. Pt underwent a second staged PCI of RCA with successful placement of NANCY in RCA. Pt tolerated procedures well Upon Discharge: Pt is doing well, denying complaints. He is hemodynamically stable. He was started on aspirin, plavix, b-royce, FELIPE-i, statin. He was evaluated by cardiology today who reports pt is stable for discharge with followup. Outpt followup appointment has been scheduled. Discharge Exam - Head Exam Head Exam: ATRAUMATIC, NORMAL INSPECTION, NORMOCEPHALIC Discharge Plan - Discharge Medications Prescriptions: Aspirin [Ecotrin] 81 mg PO DAILY 30 Days #30 tabec Atorvastatin [Lipitor] 40 mg PO DIN 30 Days #30 tab Clopidogrel [Plavix] 75 mg PO DAILY 30 Days #30 tab Lisinopril [Zestril] 10 mg PO DAILY #30 tab Metoprolol Tartrate [Lopressor] 25 mg PO BID #60 tab - Follow Up Plan Condition: FAIR Disposition: HOME/ ROUTINE Instructions: Cardiac Catheterization (DC), Coronary Angioplasty (DC), Coronary Stenting (DC), Chest Pain (DC) Additional Instructions: Please follow up with the [facility] on August 29, 2018 at 3:30PM. The appointment has been made for you. Please arrive 30 minutes prior to scheduled appointment time and bring all insurance paperwork as well as photo identification to the clinic. Please follow up with your nursing home assistant administrator, Dr. Cooney, within 7 days of discharge. Please continue to take Aspirin and Plavix uninterrupted for at least 1 year, per nursing home assistant administrator. Resume your home medications including Lipitor 40mg and newly added Lisinopril 10mg once a day and Metoprolol 25mg Q12H. Please resume a regular, heart healthy diet. Resume activity as tolerated. If symptoms worsen, promptly return to the nearest emergency department. You will need to start cardiac rehabilitation. [facility] (extension [phone]) will contact you for more information Referrals: [facility] at [facility] [place] [Outside] Lul Cooney MD [Staff Provider] - <Nicholas Hopson - Last Filed: 08/23/18 17:54> Provider - Provider Date of Admission: 08/18/18 05:07 Attending physician: Nicholas Hopson MD Consults: 08/17/18 21:55 Cardiology Consult Routine Comment: Consulting Provider: Lul Cooney Consulting Physician: Lul Cooney Reason for Consult: r/o ACS Hospital Course - Lab Results Lab Results: Micro Results 08/18/18 05:00 Nose MRSA Culture (Admit) - Final MRSA NOT DETECTED 08/17/18 22:21 Urine,Clean Catch Urine Culture - Final No Growth (<1,000 CFU/ML) Most Recent Lab Values WBC 7.8 10^3/uL (4.5-11.0) 08/23/18 07:30 RBC 4.48 10^6/uL (3.5-6.1) 08/23/18 07:30 Hgb 12.9 g/dL (14.0-18.0) L 08/23/18 07:30 Hct 38.1 % (42.0-52.0) L 08/23/18 07:30 MCV 85.0 fl (80.0-105.0) 08/23/18 07:30 MCH 28.8 pg (25.0-35.0) 08/23/18 07:30 MCHC 33.9 g/dl (31.0-37.0) 08/23/18 07:30 RDW 13.4 % (11.5-14.5) 08/23/18 07:30 Plt Count 171 10^3/uL (120.0-450.0) 08/23/18 07:30 MPV 9.8 fl (7.0-11.0) 08/23/18 07:30 Neut % (Auto) 56.5 % (50.0-68.0) 08/23/18 07:30 Lymph % (Auto) 29.3 % (22.0-35.0) 08/23/18 07:30 Crowley % (Auto) 12.2 % (1.0-6.0) H 08/23/18 07:30 Eos % (Auto) 1.7 % (1.5-5.0) 08/23/18 07:30 Baso % (Auto) 0.3 % (0.0-3.0) 08/23/18 07:30 Lymph # (Auto) 2.3 (1.2-3.4) 08/23/18 07:30 Crowley # (Auto) 1.0 (0.1-0.6) H 08/23/18 07:30 Eos # (Auto) 0.1 (0.0-0.7) 08/23/18 07:30 Baso # (Auto) 0.02 K/mm3 (0.0-2.0) 08/23/18 07:30 Absolute Neuts (auto) 4.41 (1.4-6.5) 08/23/18 07:30 PT 13.6 SECONDS (9.4-12.5) H 08/22/18 09:20 INR 1.20 08/22/18 09:20 APTT 177.9 Seconds (26.9-38.3) H* 08/22/18 09:20 D-Dimer, Quantitative 196 ng/mlDDU (0-243) 08/17/18 19:00 Sodium 138 mmol/L (132-148) 08/23/18 07:30 Potassium 4.6 mmol/L (3.6-5.0) 08/23/18 07:30 Chloride 107 mmol/L (98-107) 08/23/18 07:30 Carbon Dioxide 25 mmol/L (21-33) 08/23/18 07:30 Anion Gap 11 (10-20) 08/23/18 07:30 BUN 20 mg/dL (7-21) 08/23/18 07:30 Creatinine 1.4 mg/dl (0.8-1.5) 08/23/18 07:30 Est GFR ( Amer) > 60 08/23/18 07:30 Est GFR (Non-Af Amer) 51 08/23/18 07:30 POC Glucose (mg/dL) 116 mg/dL (65-110) H 08/23/18 11:38 Random Glucose 88 mg/dL (70-110) 08/23/18 07:30 Hemoglobin A1c 5.4 % (4.2-6.5) 08/17/18 19:00 Calcium 9.5 mg/dL (8.4-10.5) 08/23/18 07:30 Phosphorus 4.2 mg/dL (2.5-4.5) 08/22/18 06:00 Magnesium 2.3 mg/dL (1.7-2.2) H 08/22/18 06:00 Total Bilirubin 0.7 mg/dL (0.2-1.3) 08/22/18 06:00 GGT 32 U/L (8-78) 08/19/18 09:39 AST 49 U/L (17-59) 08/22/18 06:00 ALT 26 U/L (7-56) 08/22/18 06:00 Alkaline Phosphatase 83 U/L (38-126) 08/22/18 06:00 Lactate Dehydrogenase 800 U/L (333-699) H 08/18/18 09:00 Total Creatine Kinase 773 U/L (35-230) H 08/18/18 09:00 CK-MB (CK-2) 80.5 ng/mL (0.0-3.6) H 08/18/18 09:00 CK-MB (CK-2) % 10.4 % (2.5-3.0) H 08/18/18 09:00 Troponin I 12.30 ng/mL H* D 08/20/18 06:20 NT-Pro-B Natriuret Pep 1160 pg/mL (0-450) H 08/17/18 19:00 Total Protein 7.0 g/dL (5.8-8.3) 08/22/18 06:00 Albumin 3.7 g/dL (3.0-4.8) 08/22/18 06:00 Globulin 3.3 gm/dL 08/22/18 06:00 Albumin/Globulin Ratio 1.1 (1.1-1.8) 08/22/18 06:00 Triglycerides 323 mg/dL (35-160) H 08/17/18 19:00 Cholesterol 216 mg/dL (130-200) H 08/17/18 19:00 LDL Cholesterol Direct 122 mg/dL (0-129) 08/17/18 19:00 HDL Cholesterol 39 mg/dL (29-60) 08/17/18 19:00 Free T4 1.02 ng/dL (0.78-2.19) 08/17/18 19:00 TSH 3rd Generation 2.36 mIU/mL (0.46-4.68) 08/17/18 19:00 Urine Color Yellow (YELLOW) 08/17/18 22:21 Urine Appearance Clear (CLEAR) 08/17/18 22:21 Urine pH 6.5 (4.7-8.0) 08/17/18 22:21 Ur Specific [place] 1.010 (1.005-1.035) 08/17/18 22:21 Urine Protein Negative mg/dL (<30 mg/dL) 08/17/18 22:21 Urine Glucose (UA) Negative mg/dL (NEGATIVE) 08/17/18 22:21 Urine Ketones Negative mg/dL (NEGATIVE) 08/17/18 22:21 Urine Blood Negative (NEGATIVE) 08/17/18 22:21 Urine Nitrate Negative (NEGATIVE) 08/17/18 22:21 Urine Bilirubin Negative (NEGATIVE) 08/17/18 22:21 Urine Urobilinogen 0.2 E.U./dL (<1 E.U./dL) 08/17/18 22:21 Ur Leukocyte Esterase Negative Anam/uL (NEGATIVE) 08/17/18 22:21 Attending/Attestation - Attestation I have personally seen and examined this patient.: Yes I have fully participated in the care of the patient.: Yes I have reviewed all pertinent clinical information, including history, physical exam and plan: Yes Notes (Text): 08/23/18 17:51 Patient was seen and examined with medical receptionist assistant. 63 years old male with no significant PMH was admitted with Ant wall SEMI, He underwent SP PCI with new drug-eluting stent in the LAD on 08/16/17 and then staged PCI of the RCA this Saturday08/22/18. ECHO showed EF of 30%, severe AR, grade II diastolic dysfunction. Continue dual antiplatelet therapy: ASA 81mg QD, Plavix 75mg QD Lipitor 40mg QD, Lopressor 25mg Q12H and Lisinopril 10 mg po daily Blood pressure is stable. Renal functions are stable.Creatinin is 1.4 at the time of discharge. Patient will need repeat Echo in 3 month for the evaluation of left ventricular ejection fraction. The issue of compliance with medication and close follow up with PCP and Cardiology was discussed. Management plan was discussed in detail with patient. Education was provided.
[2018-08-23 15:38] VITALS: BP 133/67; PULSE 62
== END 2018-08-23 17:30 | disposition home or self-care (01) | DRG 174 ==
LOC: ED 18:39 → ERH 08-18 00:18 → 2RNO 08-18 01:46 → CCU 08-18 04:54 → OBSVTOIN 08-18 05:07 → 2RNO 08-19 18:55 → 2RSO 08-22 08:49
PROVIDERS: ADMIT Hospitalist; ATTEND Internal Medicine
PROC: 027034Z Dilation of Coronary Artery, One Artery with Drug-eluting Intraluminal Device, Percutaneous Approach (ICD-10-PCS; principal; 2018-08-18)
PROC: B2111ZZ Fluoroscopy of Multiple Coronary Arteries using Low Osmolar Contrast (ICD-10-PCS; 2018-08-18)
PROC: B2151ZZ Fluoroscopy of Left Heart using Low Osmolar Contrast (ICD-10-PCS; 2018-08-18)
PROC: B41F1ZZ Fluoroscopy of Right Lower Extremity Arteries using Low Osmolar Contrast (ICD-10-PCS; 2018-08-18)
PROC: 027034Z Dilation of Coronary Artery, One Artery with Drug-eluting Intraluminal Device, Percutaneous Approach (ICD-10-PCS; 2018-08-22)
PROC: B2111ZZ Fluoroscopy of Multiple Coronary Arteries using Low Osmolar Contrast (ICD-10-PCS; 2018-08-22)
PROC: B41G1ZZ Fluoroscopy of Left Lower Extremity Arteries using Low Osmolar Contrast (ICD-10-PCS; 2018-08-22)
DX: I21.09 ST elevation (STEMI) myocardial infarction involving other coronary artery of anterior wall (principal); I50.21 Acute systolic (congestive) heart failure; N17.9 Acute kidney failure, unspecified; N18.3 Chronic kidney disease, stage 3 (moderate); I13.0 Hypertensive heart and chronic kidney disease with heart failure and stage 1 through stage 4 chronic kidney disease, or unspecified chronic kidney disease; E78.5 Hyperlipidemia, unspecified; F17.210 Nicotine dependence, cigarettes, uncomplicated; F41.0 Panic disorder [episodic paroxysmal anxiety]; I25.10 Atherosclerotic heart disease of native coronary artery without angina pectoris; N14.1 Nephropathy induced by other drugs, medicaments and biological substances; T50.8X5A Adverse effect of diagnostic agents, initial encounter; Z79.02 Long term (current) use of antithrombotics/antiplatelets; Z79.82 Long term (current) use of aspirin; Z79.899 Other long term (current) drug therapy

== ENCOUNTER 2018-08-29 16:53 | Outpatient (CLI) | payer MEDICAID | END 2018-08-29 16:54 | disposition home or self-care (01) | LOC: LAB 16:53 ==